=== PATIENT | female | born 1945 | race Caucasian/White ===

== ENCOUNTER → 2019-02-11 15:00 | Outpatient (CLI) | payer MEDICARE, OTHER, SELFPAY ==
[2019-02-11 15:43] LABS: Add Manual Diff / Slide Review NO; Basophils Absolute Auto 100 /uL (0-100); Basophils Percent Auto 0.8 % (0-2); Eosinophils Absolute Auto 800 /uL (0-450); Eosinophils Percent Auto 9.5 % (2-4); Hematocrit 40.8 % (36-46); Hemoglobin 13.9 g/dL (12.0-16.0); Lymphocytes Absolute Auto 1900 /uL (1100-4500); Lymphocytes Percent Auto 22.2 % (25-40); Mean Corpuscular HGB Conc 33.9 % (30-36); Mean Corpuscular Volume 91.3 fL (80-100); Monocytes Absolute Auto 600 /uL (0-900); Neutrophils Absolute Auto 5300 /uL (1500-7000); Neutrophils Percent Auto 60.5 % (50-75); Platelet Count 378 X10^3/uL (150-400); Red Blood Cell Count 4.47 X10^6/uL (4.0-5.2); Red Cell Distribution Width 13.5 % (11.6-14.8); White Blood Cell Count 8.7 X10^3/uL (4.5-11.0)
[2019-02-11 16:07] LABS: Alanine Aminotransferase 66 IU/L (9-52); Albumin 4.1 g/dL (3.5-5.0); Alkaline Phosphatase 92 U/L (38-126); Aspartate Aminotransferase 99 IU/L (14-36); Bilirubin Total 0.4 mg/dL (0.2-1.3); Blood Urea Nitrogen 17 mg/dL (7-17); Calcium 10.1 mg/dL (8.4-10.2); Carbon Dioxide 29 mmol/L (22-32); Chloride 100 mmol/L (98-107); Estimated Glomerular Filt Rate > 60.0 mL/min (>60); Globulin 4.3 g/dL (1.7-4.1); Glucose 147 mg/dL (80-110); HEMOLYSIS < 15 (0-50); Potassium 3.6 mmol/L (3.4-5.1); Sodium 138 mmol/L (137-145); Total Protein 8.4 g/dL (6.3-8.2)
[2019-02-11 16:38] LABS: TSH w/ Reflex to FT4 4.07 uIU/mL (0.47-4.68)
[2019-02-16 12:32] LABS: Hemoglobin A1C% w Est Avg Glu 6.8 % (4.0-6.0)
== END ==
PROVIDERS: PCP Family Medicine; Visit Provider Family Medicine
DX: I10 Essential (primary) hypertension (principal); R73.01 Impaired fasting glucose
CPT/HCPCS: 36415; 80053; 83036; 84443; 85025

== ENCOUNTER → 2019-08-26 11:31 | Outpatient (CLI) | payer MEDICARE, OTHER, SELFPAY | PROVIDERS: PCP Family Medicine; Referring Provider Family Medicine; Visit Provider Family Medicine | DX: E11.9 Type 2 diabetes mellitus without complications (principal) | CPT/HCPCS: 36415; 83036 ==

== ENCOUNTER → 2020-11-01 14:17 | Outpatient (CLI) | payer MEDICARE, OTHER, SELFPAY ==
[2020-11-01 14:47] LABS: Appearance Urine UA CLOUDY; Bilirubin Urine UA NEGATIVE (NEGATIVE); Color Urine UA YELLOW; Glucose Urine UA NEGATIVE (Negative); Ketones Urine UA NEGATIVE (NEGATIVE); Leukocyte Esterase Urine UA 3+ (NEGATIVE); Nitrite Urine UA NEGATIVE (Negative); Occult Blood Urine UA 3+ (Negative); Protein Urine UA 1+ (Negative); Specific Gravity Urine UA 1.015 (1.000-1.035); Urobilinogen Urine UA 0.2 E.U./dL (0.2)
[2020-11-01 15:23] LABS: Bacteria Urine Moderate (10-30); Culture Indicated Urine Specimen Cultured; RBC Urine 5-10/HPF (0-5/HPF); Renal Epithelial Cells Urine 0-1/HPF (0-1/HPF); Squamous Epithelial Cell Urine 1-5 /HPF (0-5/HPF); Transitional Epi Cells Urine 1-5/HPF (0-5/HPF); WBC Urine 30-100/HPF (0-5/HPF)
== END ==
PROVIDERS: PCP Family Medicine; Referring Provider Family Medicine; Visit Provider Family Medicine
DX: R30.0 Dysuria (principal)
CPT/HCPCS: 81001; 87077; 87086; 87186

== ENCOUNTER → 2021-01-21 08:45 | Outpatient (CLI) | payer MEDICARE, OTHER, SELFPAY ==
[2021-01-21 09:50] LABS: Add Manual Diff / Slide Review NO; Basophils Absolute Auto 100 /uL (0-100); Basophils Percent Auto 1.3 % (0-2); Eosinophils Absolute Auto 1100 /uL (0-450); Eosinophils Percent Auto 12.7 % (2-4); Hematocrit 42.4 % (36-46); Hemoglobin 14.5 g/dL (12.0-16.0); Lymphocytes Absolute Auto 1700 /uL (1100-4500); Lymphocytes Percent Auto 20.9 % (25-40); Mean Corpuscular HGB Conc 34.2 % (30-36); Mean Corpuscular Volume 90.7 fL (80-100); Monocytes Absolute Auto 600 /uL (0-900); Monocytes Percent Auto 7.6 % (3-14); Neutrophils Absolute Auto 4800 /uL (1500-7000); Neutrophils Percent Auto 57.5 % (50-75); Platelet Count 353 X10^3/uL (150-400); Red Blood Cell Count 4.67 X10^6/uL (4.0-5.2); Red Cell Distribution Width 13.2 % (11.6-14.8); White Blood Cell Count 8.3 X10^3/uL (4.5-11.0)
[2021-01-21 10:11] LABS: Alanine Aminotransferase 27 IU/L (<35); Albumin 4.3 g/dL (3.5-5.0); Albumin Globulin Ratio 1.2 (1.0-2.8); Alkaline Phosphatase 82 U/L (38-126); Aspartate Aminotransferase 29 IU/L (14-36); BUN Creatinine Ratio 37.2 (6-22); Bilirubin Total 0.5 mg/dL (0.2-1.3); Blood Urea Nitrogen 16 mg/dL (7-17); Calcium 10.6 mg/dL (8.4-10.2); Carbon Dioxide 25 mmol/L (22-32); Chloride 104 mmol/L (98-107); Cholesterol 199 mg/dL (140-199); Estimated Glomerular Filt Rate > 60.0 mL/min (>60); Globulin 3.6 g/dL (1.7-4.1); Glucose 109 mg/dL (80-110); HDL Cholesterol 60 mg/dL (40-60); HEMOLYSIS < 15 (0-50); LDL Cholesterol Calculated 100 mg/dL (<100); Potassium 3.6 mmol/L (3.4-5.1); Sodium 139 mmol/L (137-145); Total Protein 7.9 g/dL (6.3-8.2); Triglycerides 193 mg/dL (35-150)
[2021-01-21 10:43] LABS: TSH w/ Reflex to FT4 1.94 uIU/mL (0.47-4.68)
== END ==
PROVIDERS: PCP Family Medicine; Referring Provider Family Medicine; Visit Provider Family Medicine
DX: E03.9 Hypothyroidism, unspecified (principal); E11.9 Type 2 diabetes mellitus without complications; E66.01 Morbid (severe) obesity due to excess calories; I10 Essential (primary) hypertension
CPT/HCPCS: 36415; 80053; 80061; 84443; 85025

== ENCOUNTER → 2021-01-22 13:56 | Outpatient (CLI) | payer MEDICARE, OTHER, SELFPAY ==
[2021-01-22 15:46] LABS: Creatinine Urine Random 103.9 mg/dL
[2021-01-22 16:52] LABS: Microalbumi Creatinin Ratio Ur 3147.2 ug/mg CR (<30)
[2021-01-23 13:46] LABS: Appearance Urine UA CLOUDY; Bilirubin Urine UA NEGATIVE (NEGATIVE); Color Urine UA YELLOW; Glucose Urine UA NEGATIVE (Negative); Ketones Urine UA NEGATIVE (NEGATIVE); Leukocyte Esterase Urine UA 2+ (NEGATIVE); Nitrite Urine UA POSITIVE (Negative); Occult Blood Urine UA 3+ (Negative); Protein Urine UA 2+ (Negative); Specific Gravity Urine UA 1.025 (1.000-1.035); Urobilinogen Urine UA 0.2 E.U./dL (0.2)
[2021-01-23 13:52] LABS: Amorphous Sediment Urine 1+; Bacteria Urine Moderate (10-30); Culture Indicated Urine Specimen Cultured; Mucus Urine 1+ (Negative); RBC Urine 1-5/HPF (0-5/HPF); Renal Epithelial Cells Urine 0-1/HPF (0-1/HPF); Squamous Epithelial Cell Urine 1-5 /HPF (0-5/HPF); WBC Urine >100/HPF (0-5/HPF)
== END ==
PROVIDERS: PCP Family Medicine; Referring Provider Family Medicine; Visit Provider Family Medicine
DX: E03.9 Hypothyroidism, unspecified (principal); E11.9 Type 2 diabetes mellitus without complications; E66.01 Morbid (severe) obesity due to excess calories; I10 Essential (primary) hypertension; N39.0 Urinary tract infection, site not specified
CPT/HCPCS: 81001; 82043; 82570; 87077; 87086; 87186

== ENCOUNTER → 2021-02-11 09:11 | Outpatient (CLI) | payer MEDICARE, OTHER, SELFPAY ==
[2021-02-11 09:55] LABS: Appearance Urine UA CLOUDY; Bilirubin Urine UA NEGATIVE (NEGATIVE); Color Urine UA YELLOW; Glucose Urine UA NEGATIVE (Negative); Ketones Urine UA NEGATIVE (NEGATIVE); Leukocyte Esterase Urine UA 3+ (NEGATIVE); Nitrite Urine UA POSITIVE (Negative); Occult Blood Urine UA 3+ (Negative); Protein Urine UA 2+ (Negative); Urobilinogen Urine UA 0.2 E.U./dL (0.2)
[2021-02-11 10:48] LABS: Bacteria Urine Many (>30); Culture Indicated Urine Specimen Cultured; RBC Urine 30-100/HPF (0-5/HPF); WBC Urine >100/HPF (0-5/HPF)
== END ==
PROVIDERS: PCP Family Medicine; Referring Provider Family Medicine; Visit Provider Family Medicine
DX: R30.0 Dysuria (principal); N39.0 Urinary tract infection, site not specified
CPT/HCPCS: 81001; 87077; 87086; 87186

== ENCOUNTER → 2021-02-19 12:50 | Outpatient (CLI) | payer MEDICARE, OTHER, SELFPAY | PROVIDERS: PCP Family Medicine; Referring Provider Family Medicine; Visit Provider Family Medicine | DX: N39.0 Urinary tract infection, site not specified (principal) | CPT/HCPCS: 87086 ==

== ENCOUNTER → 2021-07-02 11:58 | Outpatient (CLI) | payer MEDICARE, OTHER, SELFPAY ==
[2021-07-02 12:42] LABS: Appearance Urine UA CLOUDY; Bilirubin Urine UA NEGATIVE (NEGATIVE); Color Urine UA YELLOW; Glucose Urine UA NEGATIVE (Negative); Ketones Urine UA NEGATIVE (NEGATIVE); Leukocyte Esterase Urine UA 3+ (NEGATIVE); Nitrite Urine UA POSITIVE (Negative); Occult Blood Urine UA 3+ (Negative); Protein Urine UA 2+ (Negative); Urobilinogen Urine UA 0.2 E.U./dL (0.2)
[2021-07-02 13:02] LABS: Bacteria Urine Moderate (10-30); Culture Indicated Urine Specimen Cultured; RBC Urine 10-30/HPF (0-5/HPF); Squamous Epithelial Cell Urine 1-5 /HPF (0-5/HPF); Transitional Epi Cells Urine 1-5/HPF (0-5/HPF); WBC Urine >100/HPF (0-5/HPF)
== END ==
PROVIDERS: PCP Family Medicine; Referring Provider Family Medicine; Visit Provider Family Medicine
DX: R30.0 Dysuria (principal)
CPT/HCPCS: 81003; 81015; 87077; 87086; 87186

== ENCOUNTER → 2021-08-28 15:08 | Outpatient (CLI) | payer MEDICARE, OTHER, SELFPAY ==
[2021-08-28 15:32] LABS: Appearance Urine UA CLOUDY; Bilirubin Urine UA NEGATIVE (NEGATIVE); Color Urine UA YELLOW; Glucose Urine UA NEGATIVE (Negative); Ketones Urine UA NEGATIVE (NEGATIVE); Leukocyte Esterase Urine UA 2+ (NEGATIVE); Nitrite Urine UA POSITIVE (Negative); Occult Blood Urine UA 3+ (Negative); Protein Urine UA 2+ (Negative); Urobilinogen Urine UA 0.2 E.U./dL (0.2)
[2021-08-28 15:42] LABS: Amorphous Sediment Urine 1+; Bacteria Urine Many (>30); Culture Indicated Urine Specimen Cultured; RBC Urine 10-30/HPF (0-5/HPF); WBC Urine 5-10/HPF (0-5/HPF)
== END ==
PROVIDERS: PCP Family Medicine; Referring Provider Family Medicine; Visit Provider Family Medicine
DX: R30.0 Dysuria (principal)
CPT/HCPCS: 81001; 87077; 87086; 87186

== ENCOUNTER 2022-02-17 09:55 | Inpatient (IN) | payer MEDICARE, OTHER, SELFPAY ==
[2022-02-17] VITALS (17 sets, daily range): BP systolic 114–140; BP diastolic 58–78; PULSE 72–126; RESP 20–22; TEMP 36.5–38.9; O2SAT 93–99; BMI 40.9
--- NOTE | 2022-02-17 10:16 | DI.RAD.S_ITS ---
PROCEDURE: XR CHEST 1V INDICATIONS: suspected sepsis TECHNIQUE: One view of the chest was acquired. COMPARISON: [facility], , CHEST 2 VIEW, 08/02/2013, 15:48. FINDINGS: Surgical changes and devices: Surgical clips seen projecting over the left breast.. Lungs and pleura: Mildly low lung volumes bilaterally. No focal consolidation. A skin fold is seen projecting over the lower lung zelaya. No pleural effusions or pneumothorax. Mediastinum: Mediastinal contours appear normal. Heart size is normal. Bones and chest wall: No suspicious bony lesions. Overlying soft tissues appear unremarkable. Degenerative changes are seen in the shoulders and spine. IMPRESSION: No acute cardiopulmonary abnormality. Dictated by: Yair Alvarez M.D. on 02/17/2022 at 10:03 Approved by: Yair Alvarez M.D. on 02/17/2022 at 10:05
--- NOTE | 2022-02-17 10:22 | ED.ABDPAIN ---
HPI - Abdominal Pain General Chief Complaint: Weakness Stated Complaint: Weakness Time Seen by Provider: 02/17/22 10:07 History of Present Illness HPI narrative: This 76-year-old woman comes to the ER today by ambulance because of inability to keep herself upright. She is fallen a number of times without injury over the past 24 hours. This was the 3rd EMS visit to her home this morning and she finally acquiesced to the idea to come to the hospital. She has diabetes, obesity, history of back surgery and urinary problems. Recurrent UTIs. She denies nausea, vomiting, fever though she does endorse chills. She also says she feels constipated. No abdominal pain or flank pain. Related Data Home Medications Medication Instructions Recorded Confirmed CA PANTOTHENATE/FOLIC ACID/VIT 1 tab PO Q DAY ##0 06/24/11 03/28/21 (MULTIVITAMIN) CALCIUM CARBONATE/VITAMIN D3 1 tab PO Q DAY ##0 06/24/11 03/28/21 (Calcium 500 + D Tablet) Fish Oil (#FISH OIL) 1 iu PO Q DAY ##0 06/24/11 03/28/21 omeprazole 40 mg capsule,delayed 40 mg OR BID ##0 07/07/16 03/28/21 release sucralfate 1 gram tablet 1 gm PO QID ##0 07/07/16 03/28/21 Previous Rx's Medication Instructions Recorded fluticasone propionate 220 2 puff INH BID ##12 01/25/18 mcg/actuation HFA aerosol inhaler (Flovent HFA) amlodipine 10 mg tablet 10 mg PO QDAY #90 tabs 04/05/21 losartan 50 mg tablet See Rx Instructions .Route 05/14/21 .COMPLEX #90 tabs potassium chloride 10 mEq 20 meq PO BIDCC #360 tabs 06/03/21 tablet,extended release(part/cryst) lorazepam 1 mg tablet 0.5 mg PO BEDTIME PRN anxiety #30 07/22/21 tabs chlorthalidone 50 mg tablet See Rx Instructions .Route 07/25/21 .COMPLEX #90 tabs citalopram 20 mg tablet See Rx Instructions .Route 07/25/21 .COMPLEX #90 tabs metformin 500 mg tablet See Rx Instructions .Route 08/16/21 .COMPLEX #180 tabs levothyroxine 100 mcg tablet 100 mcg PO QAM #30 tabs 01/24/22 (Synthroid) montelukast 10 mg tablet See Rx Instructions .Route 02/03/22 .COMPLEX #90 tabs Allergies Allergy/AdvReac Type Severity Reaction Status Date / Time milk [MILK] Allergy Severe INCREASE Verified 02/17/22 10:28 PHLEM PRODUCTION/DYSPHAGIA nafcillin [NAFCILLIN] Allergy Severe ITCHY Verified 02/17/22 10:28 RASH/HIVES clindamycin [CLINDAMYCIN] Allergy Mild BLOODY Verified 02/17/22 10:28 STOOL doxycycline [DOXYCYCLINE] Allergy Mild BLOODY Verified 02/17/22 10:28 STOOL hydrocodone [HYDROCODONE] Allergy Mild PATIENT Verified 02/17/22 10:28 REPORTS MAKES ME CRAZY trazodone [TRAZODONE] Allergy Mild TACHYCARDIA Verified 02/17/22 10:28 valdecoxib [VALDECOXIB] Allergy Mild TACHYCARDIA Verified 02/17/22 10:28 Review of Systems Review of Systems Narrative: Complete review of systems is negative other than as noted above. Patient History Medical History (Updated 02/17/22 @ 13:12 by Gwyn Ballard MD) Anxiety Asthma Controlled type 2 diabetes mellitus without complication Hypertension Hypothyroidism Neurogenic bladder Osteomyelitis Surgical History (Updated 02/08/18 @ 22:31 by Mel Hodge) Anesthesia Breast cancer Encounter for debridement of skin (~2012) History of back surgery History of hip surgery Status post appendectomy Status post cholecystectomy Status post hysterectomy Family History (Updated 06/23/13 @ 00:00 by Mumtaz Groves MD) Father Hypertension Mother Hypertension OA (osteoarthritis) Social History marital status: Smoking Status: Never smoker alcohol intake: never substance use type: does not use Smoking Status: Never smoker Exam Narrative Exam Narrative: GENERAL: Alert, cooperative and in no distress. HEAD: Atraumatic. Normocephalic. EYES: Sclera are clear without icterus. Extraocular movements are full. ENT: No rhinorrhea. Oropharynx is moist. Mouth exam is benign. NECK: Supple. Full range of motion. CARDIOVASCULAR: Normal rate and rhythm without murmur gallop or rub. RESPIRATORY: Clear to auscultation. Breath sounds equal bilaterally. No wheezes, rales, or rhonchi. GASTROINTESTINAL: Abdomen soft, non-tender, nondistended. EXTREMITIES: No edema, full range of motion. No obvious trauma. BACK: Normal inspection, no CVA tenderness. NEURO: Nonfocal examination, normal speech, normal gait. SKIN: No rash or erythema of visible areas PSYCH: Normally oriented. Normal range of affect. Appropriate behavior Initial Vital Signs Initial Vital Signs: Vital Signs Temperature 97.7 F 02/17/22 09:55 Pulse Rate 114 H 02/17/22 09:55 Respiratory Rate 20 02/17/22 09:55 Blood Pressure 122/77 02/17/22 09:55 Pulse Oximetry 94 02/17/22 09:55 Oxygen Delivery Method 02/17/22 09:55 Course Course Course Narrative: This patient appears septic with resting tachycardia. She also has been falling multiple times at home. Catheterized urine is essentially straight pus. Expect hospitalization with IV antibiotics. Orders Ordered: ED Orders 02/17/22 10:16 XR chest 1V Stat Urinalysis and Microscopic Stat Urine Culture Stat RT Consult Eval and Treat NOW 02/17/22 10:18 COVID19 -Nasal RAPID/Pre-Proc Stat Complete Blood Count AUTO DIFF Stat Comprehensive Metabolic Panel Stat Lactate (Lactic Acid) Stat Lipase Stat Partial Thromboplastin Time Stat Procalcitonin Stat Prothrombin Time INR Stat 02/17/22 10:30 EKG-12 Lead Stat 02/17/22 10:40 Troponin I Stat 02/17/22 10:56 Blood Culture Stat Sodium Chloride (Normal Saline 0.9%) 3,600 mls @ 1,200 mls/hr 30 ml/kg infuse over 3 hr (3600 ml) IV NOW ONE Stop: 02/17/22 13:23 Last Admin: 02/17/22 10:48 Dose: 1,200 mls/hr Documented By: FRANCIS Discontinued Medications Diltiazem HCl (Diltiazem 5 Mg/Ml Sdv) 10 mg IV NOW ONE Stop: 02/17/22 10:39 Last Admin: 02/17/22 10:49 Dose: 10 mg Documented By: FRANCIS Sodium Chloride (Normal Saline 0.9%) 1,000 mls @ 1,000 mls/hr IV BOLUS ONE Stop: 02/17/22 11:15 Ceftriaxone Sodium 2,000 mg/ (Sodium Chloride) 100 mls @ 200 mls/hr IV NOW ONE Stop: 02/17/22 10:25 Last Infusion: 02/17/22 11:44 Dose: 0 mls/hr Documented By: Infusion: 02/17/22 11:02 Dose: 200 mls/hr Documented By: Infusion: 02/17/22 10:50 Dose: 0 mls/hr Documented By: Admin: 02/17/22 10:48 Dose: 200 mls/hr Documented By: FRANCIS Ketorolac Tromethamine (Ketorolac 30 Mg/Ml Vial) 15 mg IV NOW ONE Stop: 02/17/22 13:01 Last Admin: 02/17/22 13:11 Dose: 15 mg Consultations Consultation #1: Spoke with Dr. Anthony Gil who agrees to admit the patient. 1317 Vital Signs Vital signs: Vital Signs - 8 hr 02/17/22 09:55 02/17/22 10:49 02/17/22 10:20 Temperature 97.7 F Pulse Rate 114 H 126 H Respiratory Rate 20 Blood Pressure 122/77 126/72 122/77 Pulse Oximetry 94 Oxygen Delivery Method Room Air 02/17/22 10:20 02/17/22 10:30 02/17/22 10:48 Temperature Pulse Rate 72 126 H Respiratory Rate Blood Pressure 126/72 Pulse Oximetry 94 94 Oxygen Delivery Method 02/17/22 10:48 02/17/22 11:00 02/17/22 11:01 Temperature Pulse Rate 122 H 116 H Respiratory Rate Blood Pressure 140/77 Pulse Oximetry 97 97 Oxygen Delivery Method 02/17/22 11:01 02/17/22 11:30 02/17/22 11:30 Temperature Pulse Rate 112 H 107 H Respiratory Rate Blood Pressure 133/74 Pulse Oximetry 99 96 Oxygen Delivery Method Room Air 02/17/22 12:00 02/17/22 12:00 02/17/22 12:30 Temperature Pulse Rate 107 H Respiratory Rate Blood Pressure 130/64 128/63 Pulse Oximetry 97 Oxygen Delivery Method 02/17/22 12:30 Temperature Pulse Rate 117 H Respiratory Rate Blood Pressure Pulse Oximetry 97 Oxygen Delivery Method MDM - Abdominal Pain Lab Data Result diagrams: 02/17/22 10:18 02/17/22 10:18 Labs: Lab Results 02/17/22 02/17/22 02/17/22 Range/Units 10:16 10:18 10:18 WBC 25.9 H (4.5-11.0) X10^3/uL RBC 4.13 (4.0-5.2) X10^6/uL Hgb 12.3 (12.0-16.0) g/dL Hct 36.3 (36-46) % MCV 88.1 (80-100) fL MCH 29.9 (26-34) PG MCHC 34.0 (30-36) % RDW 13.3 (11.6-14.8) % Plt Count 578 H (150-400) X10^3/uL Neut % (Auto) Not Reportable Lymph % (Auto) Not Reportable [place] % (Auto) Not Reportable Eos % (Auto) Not Reportable Baso % (Auto) Not Reportable Lymph # (Auto) Not Reportable [place] # (Auto) Not Reportable Baso # (Auto) Not Reportable Total Counted 100 Seg Neutrophils % 79.0 H (38-70) % Band Neutrophils % 13.0 H (3-7) % Lymphocytes % (Manual) 5.0 L (25-45) % Monocytes % (Manual) 3.0 (2-11) % Neutrophils # (Manual) 63870 H (1435-2939) /uL RBC Morphology Normal morphology PT 16.4 H (10.1-12.7) SECONDS INR 1.4 H (0.9-1.3) APTT 28 (26-36) SECONDS Sodium (137-145) mmol/L Potassium (3.4-5.1) mmol/L Chloride (98-107) mmol/L Carbon Dioxide (22-32) mmol/L BUN (7-17) mg/dL Creatinine (0.52-1.04) mg/dL Estimated GFR (>60) mL/min BUN/Creatinine Ratio (6-22) Glucose (80-110) mg/dL Lactate (0.7-2.1) mmol/L Calcium (8.4-10.2) mg/dL Total Bilirubin (0.2-1.3) mg/dL AST (14-36) IU/L ALT (<35) IU/L Alkaline Phosphatase (38-126) U/L Troponin I (0.01-0.034) ng/mL Total Protein (6.3-8.2) g/dL Albumin (3.5-5.0) g/dL Globulin (1.7-4.1) g/dL Albumin/Globulin Ratio (1.0-2.8) Lipase (23-300) U/L Procalcitonin (<0.5) ng/mL Urine Color Yellow Urine Appearance Turbid Urine pH 8.5 H (4.5-8.0) Ur Specific [place] >=1.030 H (1.000-1.035) Urine Protein 3+ H (Negative) Urine Glucose (UA) Negative (Negative) g/dL Urine Ketones Negative (NEGATIVE) Urine Occult Blood 3+ H (Negative) Urine Nitrate Negative (Negative) Urine Bilirubin Negative (NEGATIVE) Urine Urobilinogen 0.2 (0.2) E.U./dL Ur Leukocyte Esterase 2+ H (NEGATIVE) Urine RBC 30-100/hpf H (0-5/HPF) Urine WBC >100/hpf H (0-5/HPF) Urine Bacteria Many (>30) H (None) Ur Culture Indicated? Specimen cultured SARS-CoV-2 (PCR) (Negative) 02/17/22 02/17/22 02/17/22 Range/Units 10:18 10:18 10:18 WBC (4.5-11.0) X10^3/uL RBC (4.0-5.2) X10^6/uL Hgb (12.0-16.0) g/dL Hct (36-46) % MCV (80-100) fL MCH (26-34) PG MCHC (30-36) % RDW (11.6-14.8) % Plt Count (150-400) X10^3/uL Neut % (Auto) Lymph % (Auto) [place] % (Auto) Eos % (Auto) Baso % (Auto) Lymph # (Auto) [place] # (Auto) Baso # (Auto) Total Counted Seg Neutrophils % (38-70) % Band Neutrophils % (3-7) % Lymphocytes % (Manual) (25-45) % Monocytes % (Manual) (2-11) % Neutrophils # (Manual) (3442-3282) /uL RBC Morphology PT (10.1-12.7) SECONDS INR (0.9-1.3) APTT (26-36) SECONDS Sodium 134 L (137-145) mmol/L Potassium 3.2 L (3.4-5.1) mmol/L Chloride 98 (98-107) mmol/L Carbon Dioxide 25 (22-32) mmol/L BUN 37 H (7-17) mg/dL Creatinine 1.15 H (0.52-1.04) mg/dL Estimated GFR 50 L (>60) mL/min BUN/Creatinine Ratio 32.2 H (6-22) Glucose 120 H (80-110) mg/dL Lactate 2.2 H (0.7-2.1) mmol/L Calcium 10.1 (8.4-10.2) mg/dL Total Bilirubin 0.9 (0.2-1.3) mg/dL AST 56 H (14-36) IU/L ALT 59 H (<35) IU/L Alkaline Phosphatase 130 H (38-126) U/L Troponin I (0.01-0.034) ng/mL Total Protein 8.5 H (6.3-8.2) g/dL Albumin 3.5 (3.5-5.0) g/dL Globulin 5.0 H (1.7-4.1) g/dL Albumin/Globulin Ratio 0.7 L (1.0-2.8) Lipase 45 (23-300) U/L Procalcitonin 3.17 H (<0.5) ng/mL Urine Color Urine Appearance Urine pH (4.5-8.0) Ur Specific [place] (1.000-1.035) Urine Protein (Negative) Urine Glucose (UA) (Negative) g/dL Urine Ketones (NEGATIVE) Urine Occult Blood (Negative) Urine Nitrate (Negative) Urine Bilirubin (NEGATIVE) Urine Urobilinogen (0.2) E.U./dL Ur Leukocyte Esterase (NEGATIVE) Urine RBC (0-5/HPF) Urine WBC (0-5/HPF) Urine Bacteria (None) Ur Culture Indicated? SARS-CoV-2 (PCR) Negative (Negative) 02/17/22 02/17/22 Range/Units 10:40 12:40 WBC (4.5-11.0) X10^3/uL RBC (4.0-5.2) X10^6/uL Hgb (12.0-16.0) g/dL Hct (36-46) % MCV (80-100) fL MCH (26-34) PG MCHC (30-36) % RDW (11.6-14.8) % Plt Count (150-400) X10^3/uL Neut % (Auto) Lymph % (Auto) [place] % (Auto) Eos % (Auto) Baso % (Auto) Lymph # (Auto) [place] # (Auto) Baso # (Auto) Total Counted Seg Neutrophils % (38-70) % Band Neutrophils % (3-7) % Lymphocytes % (Manual) (25-45) % Monocytes % (Manual) (2-11) % Neutrophils # (Manual) (3969-1248) /uL RBC Morphology PT (10.1-12.7) SECONDS INR (0.9-1.3) APTT (26-36) SECONDS Sodium (137-145) mmol/L Potassium (3.4-5.1) mmol/L Chloride (98-107) mmol/L Carbon Dioxide (22-32) mmol/L BUN (7-17) mg/dL Creatinine (0.52-1.04) mg/dL Estimated GFR (>60) mL/min BUN/Creatinine Ratio (6-22) Glucose (80-110) mg/dL Lactate 1.9 (0.7-2.1) mmol/L Calcium (8.4-10.2) mg/dL Total Bilirubin (0.2-1.3) mg/dL AST (14-36) IU/L ALT (<35) IU/L Alkaline Phosphatase (38-126) U/L Troponin I 0.016 (0.01-0.034) ng/mL Total Protein (6.3-8.2) g/dL Albumin (3.5-5.0) g/dL Globulin (1.7-4.1) g/dL Albumin/Globulin Ratio (1.0-2.8) Lipase (23-300) U/L Procalcitonin (<0.5) ng/mL Urine Color Urine Appearance Urine pH (4.5-8.0) Ur Specific [place] (1.000-1.035) Urine Protein (Negative) Urine Glucose (UA) (Negative) g/dL Urine Ketones (NEGATIVE) Urine Occult Blood (Negative) Urine Nitrate (Negative) Urine Bilirubin (NEGATIVE) Urine Urobilinogen (0.2) E.U./dL Ur Leukocyte Esterase (NEGATIVE) Urine RBC (0-5/HPF) Urine WBC (0-5/HPF) Urine Bacteria (None) Ur Culture Indicated? SARS-CoV-2 (PCR) (Negative) ECG Data Interpretation: EKG obtained at 10:30 a.m. this morning reveals atrial fibrillation at a rate of 128 beats per minute. There is no acute T-wave changes or ST segment changes nonspecific changes are suspicious for ischemia. QTC is 490. MDM Narrative Medical decision making narrative: Sepsis with urinary tract source. I cultures drawn, fluids given, repeat lactic is improved. Will admit to hospitalist service as an inpatient. Discharge Plan Departure Patient Disposition: Admitted As Inpatient Clinical Impression: Sepsis, Urinary tract infection
[2022-02-17 10:37] LABS: Hematocrit 36.3 % (36-46); Hemoglobin 12.3 g/dL (12.0-16.0); Mean Corpuscular Hemoglobin 29.9 PG (26-34); Mean Corpuscular Volume 88.1 fL (80-100); Platelet Count 578 X10^3/uL (150-400); Red Blood Cell Count 4.13 X10^6/uL (4.0-5.2); Red Cell Distribution Width 13.3 % (11.6-14.8); White Blood Cell Count 25.9 X10^3/uL (4.5-11.0)
[2022-02-17 10:38] LABS: Add Manual Diff / Slide Review YES
[2022-02-17] MEDS: cefTRIAXone 2,000 MG in SODIUM CHLORIDE 0.9% 100 ML 200 MG IV (10:48)
[2022-02-17] MEDS: SODIUM CHLORIDE 0.9% 3,600 ML 1200 ML IV (10:48)
[2022-02-17] MEDS: dilTIAZem 5 MG/ML SDV 10 MG IV (10:49)
[2022-02-17 10:56] LABS: INR 1.4 (0.9-1.3); Prothrombin Time 16.4 SECONDS (10.1-12.7)
[2022-02-17 10:59] LABS: PTT Partial Thromboplastin Tim 28 SECONDS (26-36)
[2022-02-17 11:01] LABS: COVID19 -Nasal RAPID Negative (Negative)
[2022-02-17 11:04] LABS: Appearance Urine UA TURBID; Bacteria Urine Many (>30); Bilirubin Urine UA NEGATIVE (NEGATIVE); Color Urine UA YELLOW; Culture Indicated Urine Specimen Cultured; Glucose Urine UA NEGATIVE (Negative); Ketones Urine UA NEGATIVE (NEGATIVE); Leukocyte Esterase Urine UA 2+ (NEGATIVE); Nitrite Urine UA NEGATIVE (Negative); Occult Blood Urine UA 3+ (Negative); Protein Urine UA 3+ (Negative); RBC Urine 30-100/HPF (0-5/HPF); Specific Gravity Urine UA >=1.030 (1.000-1.035); Urobilinogen Urine UA 0.2 E.U./dL (0.2); WBC Urine >100/HPF (0-5/HPF); pH Urine UA 8.5 (4.5-8.0)
[2022-02-17 11:09] LABS: Alanine Aminotransferase 59 IU/L (<35); Albumin 3.5 g/dL (3.5-5.0); Albumin Globulin Ratio 0.7 (1.0-2.8); Alkaline Phosphatase 130 U/L (38-126); Aspartate Aminotransferase 56 IU/L (14-36); BUN Creatinine Ratio 32.2 (6-22); Bilirubin Total 0.9 mg/dL (0.2-1.3); Blood Urea Nitrogen 37 mg/dL (7-17); Calcium 10.1 mg/dL (8.4-10.2); Carbon Dioxide 25 mmol/L (22-32); Chloride 98 mmol/L (98-107); Estimated Glomerular Filt Rate 50 mL/min (>60); Glucose 120 mg/dL (80-110); Lipase 45 U/L (23-300); Potassium 3.2 mmol/L (3.4-5.1); Sodium 134 mmol/L (137-145); Total Protein 8.5 g/dL (6.3-8.2)
[2022-02-17 11:10] LABS: HEMOLYSIS 54 (0-50)
[2022-02-17 11:11] LABS: Lactate (Lactic Acid) 2.2 mmol/L (0.7-2.1)
[2022-02-17 11:19] LABS: Troponin I 0.016 ng/mL (0.01-0.034)
[2022-02-17 11:23] LABS: Neutrophils Absolute Manual 23828 /uL (3000-5900); RBC Morphology Normal Morphology; Total Cells Counted 100
[2022-02-17 11:24] LABS: Procalcitonin 3.17 ng/mL (<0.5)
[2022-02-17 12:26] LABS: Reflexed Lactate in 2 Hours Y
[2022-02-17 13:07] LABS: Lactate 2HR (Lactic Acid Rflx) 1.9 mmol/L (0.7-2.1)
[2022-02-17] MEDS: KETOROLAC 30 MG/ML VIAL 15 MG IV (13:11)
--- NOTE | 2022-02-17 14:18 | P.HP_ITS ---
History of Present Illness History of Present Illness Date Patient Seen: 02/17/22 Time Patient Seen: 14:19 Chief complaint: Weakness Narrative: 76 year old female, normally sees Dr. Groves, admitted for UTI with sepsis and new onset atrial fibrillation Patient reports multiple falls over the course of more than a day. She denies any serious injury but is unable to really to keep her balance or stay upright.. She had called EMS on 2 other occasions and third time was brought to the emergency department Patient with history of frequent UTIs and some urinary retention (after back injury/surgery years ago) requiring intermittent self catheterization In the ER she was found to a marked leukocytosis, frankly positive urinalysis with urine looking grossly more like pus than anything else, and new onset atrial fibrillation with borderline rapid ventricular response. She was also minimally hypokalemic with evidence of acute kidney injury with a bump in her creatinine and BUN. She was also noted to have a minimally elevated lactate which improved after fluid volume resuscitation. She also had abnormal LFTs which is not new for her necessarily Troponin was negative. She was given a dose of IV ceftriaxone and IV diltiazem in the ER. Patient History Medical History Anxiety Asthma Breast cancer Controlled type 2 diabetes mellitus without complication Hypertension Hypothyroidism Neurogenic bladder Osteomyelitis Varicose vein of leg Surgical History Anesthesia Breast cancer Encounter for debridement of skin (~2012) History of back surgery History of hip surgery Status post appendectomy Status post cholecystectomy Status post hysterectomy Family & Social History Family History Father Hypertension Mother Hypertension OA (osteoarthritis) Safety & Behavioral: Feels Safe in Current Yes Environment Been Physically Hurt or No Threatened By a Person Tobacco & Substance use: Smoking Status Never smoker alcohol intake never Meds Home Medications and Allergies Home Medications Medication Instructions Recorded Confirmed Type CALCIUM CARBONATE/VITAMIN D3 1 tab PO Q DAY ##0 06/24/11 02/17/22 History (Calcium 500 + D Tablet) Fish Oil (#FISH OIL) 1 iu PO Q DAY ##0 06/24/11 02/17/22 History omeprazole 40 mg capsule,delayed 40 mg OR BID ##0 07/07/16 02/17/22 History release amlodipine 10 mg tablet 10 mg PO QDAY #90 tabs 04/05/21 02/17/22 Rx losartan 50 mg tablet See Rx Instructions .Route 05/14/21 02/17/22 Rx .COMPLEX #90 tabs potassium chloride 10 mEq 20 meq PO BIDCC #360 tabs 06/03/21 02/17/22 Rx tablet,extended release(part/cryst) lorazepam 1 mg tablet 0.5 mg PO BEDTIME PRN anxiety #30 07/22/21 02/17/22 Rx tabs chlorthalidone 50 mg tablet See Rx Instructions .Route 07/25/21 02/17/22 Rx .COMPLEX #90 tabs citalopram 20 mg tablet See Rx Instructions .Route 07/25/21 02/17/22 Rx .COMPLEX #90 tabs metformin 500 mg tablet See Rx Instructions .Route 08/16/21 02/17/22 Rx .COMPLEX #180 tabs levothyroxine 100 mcg tablet 100 mcg PO QAM #30 tabs 01/24/22 02/17/22 Rx (Synthroid) montelukast 10 mg tablet See Rx Instructions .Route 02/03/22 02/17/22 Rx .COMPLEX #90 tabs fluticasone propionate 220 2 puff inhalation DAILY PRN 02/17/22 02/17/22 History mcg/actuation HFA aerosol inhaler Shortness Of Breath (Flovent HFA) Allergies Allergy/AdvReac Type Severity Reaction Status Date / Time milk [MILK] Allergy Severe INCREASE Verified 02/17/22 10:28 PHLEM PRODUCTION/DYSPHAGIA nafcillin [NAFCILLIN] Allergy Severe ITCHY Verified 02/17/22 10:28 RASH/HIVES clindamycin [CLINDAMYCIN] Allergy Mild BLOODY Verified 02/17/22 10:28 STOOL doxycycline [DOXYCYCLINE] Allergy Mild BLOODY Verified 02/17/22 10:28 STOOL hydrocodone [HYDROCODONE] Allergy Mild PATIENT Verified 02/17/22 10:28 REPORTS MAKES ME CRAZY trazodone [TRAZODONE] Allergy Mild TACHYCARDIA Verified 02/17/22 10:28 valdecoxib [VALDECOXIB] Allergy Mild TACHYCARDIA Verified 02/17/22 10:28 Review of Systems Review of Systems ROS: Yes All systems reviewed with the patient and are negative except as otherwise documented Exam Vital Signs (past 8 hours): - 02/17/22 09:55 09/05/22 10:49 02/17/22 10:20 Temperature 97.7 F Pulse Rate 114 H 126 H Respiratory Rate 20 Blood Pressure 122/77 126/72 122/77 Pulse Oximetry 94 Oxygen Delivery Method Room Air 02/17/22 10:20 02/17/22 10:30 02/17/22 10:48 Temperature Pulse Rate 72 126 H Respiratory Rate Blood Pressure 126/72 Pulse Oximetry 94 94 Oxygen Delivery Method 02/17/22 10:48 02/17/22 11:00 02/17/22 11:01 Temperature Pulse Rate 122 H 116 H Respiratory Rate Blood Pressure 140/77 Pulse Oximetry 97 97 Oxygen Delivery Method 02/17/22 11:01 02/17/22 11:30 02/17/22 11:30 Temperature Pulse Rate 112 H 107 H Respiratory Rate Blood Pressure 133/74 Pulse Oximetry 99 96 Oxygen Delivery Method Room Air 02/17/22 12:00 02/17/22 12:00 02/17/22 12:30 Temperature Pulse Rate 107 H Respiratory Rate Blood Pressure 130/64 128/63 Pulse Oximetry 97 Oxygen Delivery Method 02/17/22 12:30 02/17/22 13:00 02/17/22 13:00 Temperature Pulse Rate 117 H 115 H Respiratory Rate Blood Pressure 129/63 Pulse Oximetry 97 97 Oxygen Delivery Method 02/17/22 13:30 02/17/22 13:30 Temperature Pulse Rate 114 H Respiratory Rate Blood Pressure 125/78 Pulse Oximetry 94 Oxygen Delivery Method Oxygen Delivery Method Room Air Narrative Exam Narrative: Elderly female in no obvious distress lying in her hospital bed HEENT-normocephalic atraumatic Neck-no bruits Lungs-clear with good breath sounds Heart-irregularly irregular with minimal tachycardia grade 2-3 over 6 systolic ejection murmur throughout the entire precordium without specific radiation, no thrill Abdomen-positive bowel tones soft nontender nondistended size limits exam to some extent Extremities-chronic appearing edema in the lower legs, no cyanosis or clubbing Objective Labs Result Diagrams: 02/17/22 10:18 02/17/22 10:18 Labs: Laboratory Results - last 24 hr 02/17/22 02/17/22 02/17/22 10:16 10:18 10:18 WBC 25.9 H RBC 4.13 Hgb 12.3 Hct 36.3 MCV 88.1 MCH 29.9 MCHC 34.0 RDW 13.3 Plt Count 578 H Neut % (Auto) Not Reportable Lymph % (Auto) Not Reportable [place] % (Auto) Not Reportable Eos % (Auto) Not Reportable Baso % (Auto) Not Reportable Lymph # (Auto) Not Reportable [place] # (Auto) Not Reportable Baso # (Auto) Not Reportable Total Counted 100 Seg Neutrophils % 79.0 H Band Neutrophils % 13.0 H Lymphocytes % (Manual) 5.0 L Monocytes % (Manual) 3.0 Neutrophils # (Manual) 40431 H RBC Morphology Normal morphology PT 16.4 H INR 1.4 H APTT 28 Sodium Potassium Chloride Carbon Dioxide BUN Creatinine Estimated GFR BUN/Creatinine Ratio Glucose Lactate Calcium Total Bilirubin AST ALT Alkaline Phosphatase Troponin I Total Protein Albumin Globulin Albumin/Globulin Ratio Lipase Procalcitonin Urine Color Yellow Urine Appearance Turbid Urine pH 8.5 H Ur Specific [place] >=1.030 H Urine Protein 3+ H Urine Glucose (UA) Negative Urine Ketones Negative Urine Occult Blood 3+ H Urine Nitrate Negative Urine Bilirubin Negative Urine Urobilinogen 0.2 Ur Leukocyte Esterase 2+ H Urine RBC 30-100/hpf H Urine WBC >100/hpf H Urine Bacteria Many (>30) H Ur Culture Indicated? Specimen cultured SARS-CoV-2 (PCR) 02/17/22 02/17/22 02/17/22 10:18 10:18 10:18 WBC RBC Hgb Hct MCV MCH MCHC RDW Plt Count Neut % (Auto) Lymph % (Auto) [place] % (Auto) Eos % (Auto) Baso % (Auto) Lymph # (Auto) [place] # (Auto) Baso # (Auto) Total Counted Seg Neutrophils % Band Neutrophils % Lymphocytes % (Manual) Monocytes % (Manual) Neutrophils # (Manual) RBC Morphology PT INR APTT Sodium 134 L Potassium 3.2 L Chloride 98 Carbon Dioxide 25 BUN 37 H Creatinine 1.15 H Estimated GFR 50 L BUN/Creatinine Ratio 32.2 H Glucose 120 H Lactate 2.2 H Calcium 10.1 Total Bilirubin 0.9 AST 56 H ALT 59 H Alkaline Phosphatase 130 H Troponin I Total Protein 8.5 H Albumin 3.5 Globulin 5.0 H Albumin/Globulin Ratio 0.7 L Lipase 45 Procalcitonin 3.17 H Urine Color Urine Appearance Urine pH Ur Specific [place] Urine Protein Urine Glucose (UA) Urine Ketones Urine Occult Blood Urine Nitrate Urine Bilirubin Urine Urobilinogen Ur Leukocyte Esterase Urine RBC Urine WBC Urine Bacteria Ur Culture Indicated? SARS-CoV-2 (PCR) Negative 02/17/22 02/17/22 10:40 12:40 WBC RBC Hgb Hct MCV MCH MCHC RDW Plt Count Neut % (Auto) Lymph % (Auto) [place] % (Auto) Eos % (Auto) Baso % (Auto) Lymph # (Auto) [place] # (Auto) Baso # (Auto) Total Counted Seg Neutrophils % Band Neutrophils % Lymphocytes % (Manual) Monocytes % (Manual) Neutrophils # (Manual) RBC Morphology PT INR APTT Sodium Potassium Chloride Carbon Dioxide BUN Creatinine Estimated GFR BUN/Creatinine Ratio Glucose Lactate 1.9 Calcium Total Bilirubin AST ALT Alkaline Phosphatase Troponin I 0.016 Total Protein Albumin Globulin Albumin/Globulin Ratio Lipase Procalcitonin Urine Color Urine Appearance Urine pH Ur Specific [place] Urine Protein Urine Glucose (UA) Urine Ketones Urine Occult Blood Urine Nitrate Urine Bilirubin Urine Urobilinogen Ur Leukocyte Esterase Urine RBC Urine WBC Urine Bacteria Ur Culture Indicated? SARS-CoV-2 (PCR) Assessment & Plan Assessment & Plan narrative: 1. UTI-patient with multiple UTIs over time most recently growing Klebsiella in June in August of this year that was sensitive to ceftriaxone. Prior to that also had E coli on several occasions which was sensitive to all tested antibiotics. Patient despite her marked leukocytosis does not appear to be septic with the exception possibly of the new atrial fibrillation. She will continue with some volume replacement and parental antibiotics. Antibiotics will be tailored once bacteria are identified and sensitivities determined. 2. New onset atrial fibrillation-patient with negative troponin. Echocardiogram has been ordered. Will go with rate control with oral metopro lol. Will use parental metoprolol if necessary to control rate. Thyroid will need to be checked as she is on thyroid replacement therapy. Consider anticoagulation prior to discharge 3. Type 2 diabetes-I am going to continue patient off of her metformin to start with given the infectious issues as above. Will monitor her numbers with a carb consistent diet and use coverage insulin as necessary 4. Essential hypertension-patient on multiple antihypertensives. I am going to hold some of those at this time as I would like to use an agent that also would help with rate control for her new onset atrial fibrillation. May require some alteration in her home medication regimen to be determined over the next 24-72 hours 5. Hypothyroidism-continue patient's usual dose thyroid but check a TSH and or T4 with the new onset atrial fibrillation as above 6. VTE prophylaxis-Lovenox for now but if it is decided to fully anticoagulated because of her atrial fibrillation Lovenox can be discontinued 7. Code status-patient would want to be resuscitated at this point in the event of a sudden cardiac or respiratory arrest so she is made a full code (discussed with her that I am not anticipating such event to happen at this point no reason to be thinking along those lines) 8. Hypokalemia-likely secondary to her chronic chlorthalidone therapy. She is on potassium replacement home but does not appear to be sufficient at this time. Will replace this orally, hold her chlorthalidone recheck numbers in the morning, including magnesium Patient deserves inpatient hospitalization given her marked leukocytosis her new onset atrial fibrillation and failure to manage at home with EMS being called multiple times. She will require at least 48 hours in the hospital that will span 2 separate midnights COVID-19 COVID-19 status: Negative Result date/Date tested (Pos, Neg/Pending): 02/17/22 Time Spent With Patient Critical Care time: I spent a total of [] minutes of critical care time on this patient's care today; this time is exclusive of procedural time.
[2022-02-17] MEDS: METOPROLOL IR 25 MG TABLET PO (15:15)
[2022-02-17] MEDS: ACETAMINOPHEN 325 MG TABLET 650 MG PO ×2 (15:15→20:48)
[2022-02-17] MEDS: POTASSIUM CHLORIDE 20 MEQ TAB 40 MEQ PO ×2 (15:15→21:20)
[2022-02-17 15:59] LABS: TSH w/ Reflex to FT4 0.99 uIU/mL (0.47-4.68)
[2022-02-17] MEDS: SODIUM CHLORIDE 0.9% 1,000 ML 100 ML IV (17:18)
[2022-02-17] MEDS: INSULIN LISPRO 100 UNIT/ML 3ML VIAL SUBCUT (17:18)
--- NOTE | 2022-02-17 18:43 | PC.NURSE ---
Pt is AxOx4, calm and cooperative. VSS except HR is tachy. Pt is on Tele and RA. Pt c/o pain on R hip and recieved PRN Tylenol with good effect. Pt has NS is running 100 ml/hr continous and purewick on. IN ER, RN unable to place sy catheter so pt has purewick in place. It is draining small amt of urine. BG142 at bedtime and recieved 1 unit insulin for coverage. Pt has couple of open sore on her back of R thigh, groin and breast fold redness. Pt has improved a lot since admitted after recieved lots of fluid. No other change. continue monitor.
[2022-02-17] MEDS: ZOLPIDEM 5 MG TABLET PO (20:48)
[2022-02-17] MEDS: MONTELUKAST 10 MG TABLET PO (20:48)
[2022-02-17] MEDS: METOPROLOL IR 25 MG TABLET 50 MG PO (20:50)
[2022-02-17] MEDS: PANTOPRAZOLE DR 40 MG TABLET PO (21:19)
[2022-02-18] MEDS: NYSTATIN POWDER 15GM 1 APPLIC TOP ×4 (00:31→22:05)
[2022-02-18 02:00] VITALS: BP 111/65; PULSE 105; RESP 20; TEMP 37.4; O2SAT 95
[2022-02-18] MEDS: ACETAMINOPHEN 325 MG TABLET 650 MG PO ×2 (04:20→22:08)
[2022-02-18 06:17] LABS: Add Manual Diff / Slide Review NO; Basophils Absolute Auto 0 /uL (0-100); Basophils Percent Auto 0.2 % (0-2); Eosinophils Absolute Auto 0 /uL (0-450); Eosinophils Percent Auto 0.1 % (2-4); Hematocrit 32.1 % (36-46); Hemoglobin 10.6 g/dL (12.0-16.0); Lymphocytes Absolute Auto 1100 /uL (1100-4500); Lymphocytes Percent Auto 4.4 % (25-40); Mean Corpuscular HGB Conc 33.1 % (30-36); Mean Corpuscular Hemoglobin 29.2 PG (26-34); Mean Corpuscular Volume 88.2 fL (80-100); Monocytes Absolute Auto 1300 /uL (0-900); Monocytes Percent Auto 5.5 % (3-14); Neutrophils Absolute Auto 21700 /uL (1500-7000); Neutrophils Percent Auto 89.8 % (50-75); Platelet Count 457 X10^3/uL (150-400); Red Blood Cell Count 3.64 X10^6/uL (4.0-5.2); Red Cell Distribution Width 13.6 % (11.6-14.8); White Blood Cell Count 24.2 X10^3/uL (4.5-11.0)
[2022-02-18 06:29] LABS: Blood Urea Nitrogen 26 mg/dL (7-17); Calcium 8.7 mg/dL (8.4-10.2); Carbon Dioxide 19 mmol/L (22-32); Chloride 109 mmol/L (98-107); Estimated Glomerular Filt Rate 56 mL/min (>60); Glucose 110 mg/dL (80-110); HEMOLYSIS < 15 (0-50); Magnesium 1.3 mg/dL (1.6-2.3); Potassium 3.3 mmol/L (3.4-5.1); Sodium 133 mmol/L (137-145)
--- NOTE | 2022-02-18 07:00 | DI.ECHO.S_ITS ---
[facility]---------+ [facility] +---------+ : : [address] : : : : [id number] : : : : Phone: [phone]+ Echocardiogram Report + + :Name: AZAEL VALLADARES Study Date: 02/18/2022 Height: 64 in : :[facility] ReadingLocation: Weight: 238 lb : : Gender: Female BSA: 2.1 m2 : :: 1945 Age: 76 yrs BP: 111/65 mmHg: :Reason For Study: Atrial fibrillation : :Ordering Physician: KATHRIN, : :AUSTEN Villafuerte Performed By: John Anderson : :Referring: AUSTEN PINON : + + Interpretation Summary There is mild concentric left ventricular hypertrophy. The ejection fraction is estimated to be 50-55%. Diastolic function could not be accurately assessed due to atrial fibrillation. The right ventricle is moderately dilated. Right ventricular systolic function is moderately reduced. There is mild mitral regurgitation. There is moderate to severe tricuspid regurgitation. The right ventricular systolic pressure is estimated to be at least 48 mmHg based on an estimated right atrial pressure of 15 mm Hg. Procedure: A two-dimensional transthoracic echocardiogram with color flow and Doppler was performed. The study quality was technically adequate. There is no prior echocardiogram noted for this patient. Left Ventricle: The left ventricle is normal in size. There is mild concentric left ventricular hypertrophy. The ejection fraction is estimated to be 50-55%. There are no focal wall motion abnormalities. Diastolic function could not be accurately assessed due to atrial fibrillation. Right Ventricle: The right ventricle is moderately dilated. Right ventricular systolic function is moderately reduced. Atria: There is moderate biatrial enlargement. The interatrial septum grossly appears intact with no obvious evidence for an atrial septal defect. Mitral Valve: There is mild mitral annular calcification. There is mild mitral regurgitation. Aortic Valve: There is mild aortic valve sclerosis. The aortic valve is trileaflet. There is no aortic valve stenosis. No aortic regurgitation is present. Tricuspid Valve: The tricuspid valve is normal in structure and function. There is moderate to severe tricuspid regurgitation. The right ventricular systolic pressure is estimated to be at least 48 mmHg based on an estimated right atrial pressure of 15 mm Hg. Pulmonic Valve: The pulmonic valve is normal in structure and function. Great Vessels: The aortic root is normal size. The dimensions of the ascending aorta are normal. The IVC is dilated (diameter is greater than 2.1 cm) and it collapses less than 50% with a sniff. This suggests a high right atrial pressure of 15 mm Hg. Pericardium/ Pleura There is no pericardial effusion. There is no pleural effusion. MMode/2D Measurements & Calculations LVIDd: 4.4 cm LVOT diam: 1.9 cm LVIDs: 3.2 cm Ao root diam: 3.3 cm FS: 27.3 % asc Aorta Diam: 3.2 cm IVSd: 1.3 cm LVPWd: 1.3 cm LV lynch. diameter/BSA (cm/m^2): 2.1 LV sys. diameter/BSA (cm/m^2): 1.5 LA dimension: 4.2 cm RA long axis: 5.9 cm LA A2 area: 24.6 cm2 LA A4 area: 25.4 cm2 LA length (vol): 6.1 cm LA vol: 86.4 ml LA vol index: 41.0 ml/m2 TAPSE_phl: 1.4 cm Doppler Measurements & Calculations Ao V2 max: 169.0 cm/sec LVOT Max Bertt: 107.0 cm/sec Ao V2 mean: 122.0 cm/sec LV V1 max P.6 mmHg Ao max P.0 mmHg LV V1 VTI: 15.3 cm Ao mean P.0 mmHg CALI(I,D): 1.7 cm2 Ao V2 VTI: 25.4 cm CALI(V,D): 1.8 cm2 sev ratio: 0.60 CALI indexed to BSA (cm^2/m^2): 0.81 TR max brett: 285.0 cm/sec SV(LVOT): 43.4 ml TR max P.5 mmHg AV VR_phl: 0.63 CALI(VTI)/BSA_phl: 0.81 Reading Physician:12:19 PM
--- NOTE | 2022-02-18 07:40 | PM.PN.1 ---
Subjective Subjective Date Patient Seen: 02/18/22 Time Patient Seen: 07:40 Interval history: Patient seen and evaluated this morning. She is doing well. Complaining of bumps and bruises from her fall. She has lots of weakness she says. But does feel little bit better. She has an intermittent cough she does take Singulair at home she would like to take that here as she feels like her allergies are bothering her. We discussed the patient's diagnosis of a urinary tract infection and atrial fibrillation. We discussed further workup and evaluation of atrial fibrillation with the patient and the need for chronic anticoagulation. Blood pressures looked much better. Pulse is still little bit tachycardic she still in atrial fibrillation. White blood cell count is stable and starting to trend down a little bit. Exam Vital Signs (past 8 hours): - 02/18/22 02:00 Temperature 99.3 F Pulse Rate 105 H Respiratory Rate 20 Blood Pressure 111/65 Pulse Oximetry 95 Oxygen Flow Rate 0 Oxygen Delivery Method Room Air Oxygen Flow Rate 0 Narrative Exam Narrative: General: Alert oriented good historian 76-year-old female HEENT: Pupils equal round and reactive or mucosa is dry neck is supple Cardio: S1-S2 distant heart sounds. Respiratory: Normal respiratory effort lungs are clear Abdomen: Soft obese nontender Extremities: Warm dry perfused. Some lower extremity edema Neurologic: Intact Objective Labs Result Diagrams: 02/19/22 05:36 02/19/22 05:36 Labs: Laboratory Results - last 24 hr 02/17/22 02/17/22 02/17/22 10:16 10:18 10:18 WBC 25.9 H RBC 4.13 Hgb 12.3 Hct 36.3 MCV 88.1 MCH 29.9 MCHC 34.0 RDW 13.3 Plt Count 578 H Neut % (Auto) Not Reportable Lymph % (Auto) Not Reportable [place] % (Auto) Not Reportable Eos % (Auto) Not Reportable Baso % (Auto) Not Reportable Neut # (Auto) Lymph # (Auto) Not Reportable [place] # (Auto) Not Reportable Eos # (Auto) Baso # (Auto) Not Reportable Total Counted 100 Seg Neutrophils % 79.0 H Band Neutrophils % 13.0 H Lymphocytes % (Manual) 5.0 L Monocytes % (Manual) 3.0 Neutrophils # (Manual) 09245 H RBC Morphology Normal morphology PT 16.4 H INR 1.4 H APTT 28 Sodium Potassium Chloride Carbon Dioxide BUN Creatinine Estimated GFR BUN/Creatinine Ratio Glucose Lactate Calcium Magnesium Total Bilirubin AST ALT Alkaline Phosphatase Troponin I Total Protein Albumin Globulin Albumin/Globulin Ratio Lipase Procalcitonin TSH Urine Color Yellow Urine Appearance Turbid Urine pH 8.5 H Ur Specific [place] >=1.030 H Urine Protein 3+ H Urine Glucose (UA) Negative Urine Ketones Negative Urine Occult Blood 3+ H Urine Nitrate Negative Urine Bilirubin Negative Urine Urobilinogen 0.2 Ur Leukocyte Esterase 2+ H Urine RBC 30-100/hpf H Urine WBC >100/hpf H Urine Bacteria Many (>30) H Ur Culture Indicated? Specimen cultured SARS-CoV-2 (PCR) 02/17/22 02/17/22 02/17/22 10:18 10:18 10:18 WBC RBC Hgb Hct MCV MCH MCHC RDW Plt Count Neut % (Auto) Lymph % (Auto) [place] % (Auto) Eos % (Auto) Baso % (Auto) Neut # (Auto) Lymph # (Auto) [place] # (Auto) Eos # (Auto) Baso # (Auto) Total Counted Seg Neutrophils % Band Neutrophils % Lymphocytes % (Manual) Monocytes % (Manual) Neutrophils # (Manual) RBC Morphology PT INR APTT Sodium 134 L Potassium 3.2 L Chloride 98 Carbon Dioxide 25 BUN 37 H Creatinine 1.15 H Estimated GFR 50 L BUN/Creatinine Ratio 32.2 H Glucose 120 H Lactate 2.2 H Calcium 10.1 Magnesium Total Bilirubin 0.9 AST 56 H ALT 59 H Alkaline Phosphatase 130 H Troponin I Total Protein 8.5 H Albumin 3.5 Globulin 5.0 H Albumin/Globulin Ratio 0.7 L Lipase 45 Procalcitonin 3.17 H TSH Urine Color Urine Appearance Urine pH Ur Specific [place] Urine Protein Urine Glucose (UA) Urine Ketones Urine Occult Blood Urine Nitrate Urine Bilirubin Urine Urobilinogen Ur Leukocyte Esterase Urine RBC Urine WBC Urine Bacteria Ur Culture Indicated? SARS-CoV-2 (PCR) Negative 02/17/22 02/17/22 02/17/22 10:18 10:40 12:40 WBC RBC Hgb Hct MCV MCH MCHC RDW Plt Count Neut % (Auto) Lymph % (Auto) [place] % (Auto) Eos % (Auto) Baso % (Auto) Neut # (Auto) Lymph # (Auto) [place] # (Auto) Eos # (Auto) Baso # (Auto) Total Counted Seg Neutrophils % Band Neutrophils % Lymphocytes % (Manual) Monocytes % (Manual) Neutrophils # (Manual) RBC Morphology PT INR APTT Sodium Potassium Chloride Carbon Dioxide BUN Creatinine Estimated GFR BUN/Creatinine Ratio Glucose Lactate 1.9 Calcium Magnesium Total Bilirubin AST ALT Alkaline Phosphatase Troponin I 0.016 Total Protein Albumin Globulin Albumin/Globulin Ratio Lipase Procalcitonin TSH 0.99 Urine Color Urine Appearance Urine pH Ur Specific [place] Urine Protein Urine Glucose (UA) Urine Ketones Urine Occult Blood Urine Nitrate Urine Bilirubin Urine Urobilinogen Ur Leukocyte Esterase Urine RBC Urine WBC Urine Bacteria Ur Culture Indicated? SARS-CoV-2 (PCR) 02/18/22 02/18/22 05:38 05:38 WBC 24.2 H RBC 3.64 L Hgb 10.6 L Hct 32.1 L MCV 88.2 MCH 29.2 MCHC 33.1 RDW 13.6 Plt Count 457 H Neut % (Auto) 89.8 H Lymph % (Auto) 4.4 L [place] % (Auto) 5.5 Eos % (Auto) 0.1 L Baso % (Auto) 0.2 Neut # (Auto) 81154 H Lymph # (Auto) 1100 [place] # (Auto) 1300 H Eos # (Auto) 0 Baso # (Auto) 0 Total Counted Seg Neutrophils % Band Neutrophils % Lymphocytes % (Manual) Monocytes % (Manual) Neutrophils # (Manual) RBC Morphology PT INR APTT Sodium 133 L Potassium 3.3 L Chloride 109 H Carbon Dioxide 19 L BUN 26 H Creatinine 1.04 Estimated GFR 56 L BUN/Creatinine Ratio 25.0 H Glucose 110 Lactate Calcium 8.7 Magnesium 1.3 L Total Bilirubin AST ALT Alkaline Phosphatase Troponin I Total Protein Albumin Globulin Albumin/Globulin Ratio Lipase Procalcitonin TSH Urine Color Urine Appearance Urine pH Ur Specific [place] Urine Protein Urine Glucose (UA) Urine Ketones Urine Occult Blood Urine Nitrate Urine Bilirubin Urine Urobilinogen Ur Leukocyte Esterase Urine RBC Urine WBC Urine Bacteria Ur Culture Indicated? SARS-CoV-2 (PCR) [facility] Medical History Anxiety Asthma Breast cancer Controlled type 2 diabetes mellitus without complication Hypertension Hypothyroidism Neurogenic bladder Osteomyelitis Varicose vein of leg Surgical History Anesthesia Breast cancer Encounter for debridement of skin (~2012) History of back surgery History of hip surgery Status post appendectomy Status post cholecystectomy Status post hysterectomy Family History Father Hypertension Mother Hypertension OA (osteoarthritis) Social History marital status: household members: spouse Smoking Status: Never smoker alcohol intake: never substance use type: does not use Assessment & Plan Assessment and plan (1) Sepsis: Status: Acute (2) Urinary tract infection: Status: Acute Plan Urinary tract infection causing significant weakness and falls. Patient has a history of multiple urinary tract infections she self catheterizes. Patient has systemic symptoms due to her urinary tract infection including leukocytosis and weakness. Patient is on appropriate antibiotic at this point with ceftriaxone 2 g. Will continue to follow culture results. In the past she has had multiple sensitivities to different antibiotics. She currently has Gram-negative bacilli in her urine a probably E coli in her urine causing the source of infection will continue with current antibiotics and trend white blood cell count which is still high. Atrial fibrillation with rapid ventricular patient has new onset atrial fibrillation. Will continue workup with this. She was started on a beta-tarah will continue to use beta-blockers for rate control. We discussed risks and benefits of starting anticoagulation with the patient. She will be started on appropriate anticoagulation for her atrial fibrillation. We did discussed risk benefits of this and patient agrees. We await echocardiogram results for further workup and evaluation. She has had a recent thyroid test. Type 2 diabetes non-insulin dependent. Patient will have monitoring of her blood sugars here in the hospital. Her metformin has been on hold. Will go ahead and restart that. Monitor blood sugars per protocol and carbohydrate consistent diet Hypertension. Continue to monitor blood pressure. It is stable at this point will make adjustments based on the addition of her new beta-tarah therapy. Hypokalemia. Continue with potassium replacement monitor closely electrolytes DVT prophylaxis with Lovenox. Will stop this and start with full anticoagulation. Time Spent With Patient Critical Care time: I spent a total of [] minutes of critical care time on this patient's care today; this time is exclusive of procedural time.
--- NOTE | 2022-02-18 08:50 | PC.RNWOUND ---
Patient resting in bed, is already positioned onto right side with pillows so posterior thigs are offloaded, heels floated on pillow. Patient has a 2.5 x 1.8 x 0.1cm Stage 2 pressure injury to the posterior left thigh, present on admission, with well-defined edges and a small amount of serous drainage. Right posterior thigh has a 3 x 3cm area of non-blanchable erythema consistent with a Stage 1 pressure injury, also present on admission. Patient says these injuries are where the backs of my legs hit in my wheelchair. Patient says she has had these for 'some time and that she and her have tried everything you can think of to help pad these areas when patient sits in wheelchair. These wounds are cleansed with saline and dressed with allevyn bordered foam dressings. Bilateral heels are reddened, boggy, blanchable. There is a 1x1cm callused area which patient is aware of to the Left 5th metatarsal prominence. Patient's heels/feet are moisturized with lotion and repositioned on pillow to keep heels floated off bed surface. Patient is cleansed up of stool incontinence and sacrogluteal area and perineum appear free of skin breakdown, barrier cream in use to gluteal area.
[2022-02-18] MEDS: CITALOPRAM 10 MG TABLET 20 MG PO (09:21)
[2022-02-18] MEDS: METOPROLOL IR 25 MG TABLET 50 MG PO ×3 (09:21→21:57)
[2022-02-18] MEDS: APIXABAN 5 MG TABLET PO ×2 (09:21→21:56)
--- NOTE | 2022-02-18 09:32 | CM.DANOTE ---
DCP: Case received, EMR reviewed and met with patient. Introduced self and role. Was able to obtain information regarding patient's baseline activity status prior to hospitalization, as well as her current living situation. DCP assessment completed with information currently available. Patient is a 76 year old female who admitted yesterday afternoon to the care of the hospitalist team. PCP: Dr. Groves. Payer: confirmed: Medicare/[employer] [place] [employer]. Patient came to the hospital via ambulance secondary to weakness, inability to keep herself upright. She had had some falls over the last 24 hours. Patient has history of diabetes, back surgeries, and recurrent UTIS. Patient does self cath. Patient was diagnosed with UTI, and she was also nted to be in afib, and was given IV Diltiazem in the ER. Met with patient in her room. She was laying in bed, alert and oriented. Confirmed that she resides with he spouse, Pola, here in [place]. She does not drive. She uses a walker, and has a wheel-chair. Her spouse helps with meals P: DCP to follow closely, and will see if patient receives P.T. orders as well. Nursing noted that patient has skin issues as well, coccyx area. Patient may benefit with home health. Emma Iverson RN/Lease Administration Analyst Discharge Planning/Care Management CM Discharge Assessment Start: 02/18/22 09:30 Freq: Status: Active Protocol: Document 02/18/22 09:30 (Rec: 02/18/22 09:32 [id number]) Discharge Planning Assessment Assigned Doctor Of Optometry Emma Iverson RN/Lease Administration Analyst Advance Directives? No History Provided By Patient,Medical Record Prior Living Arrangements House Household Members spouse Type of transporation used prior to Relies on Others admit Independent with ADL's Yes Is patient alert and oriented? Yes Needs Assistance With Meal Prep,Home Chores / Shopping Caregiver for Another No DME Already Rented / Owned FWW / Walker Comment Weakness, some skin issues, frequent falls. Discharge Plan Home with Home Health Referrals Initiated Other Additional Comment Patient currently has no P.T. orders, will follow closely to see if orders are placed. Whiteboard Updated in Patient Room with Yes name and ext. # of Doctor Of Optometry Review Status In Process Next Review Type Continued Stay Review
[2022-02-18 10:00] VITALS: BP 101/57; PULSE 111; RESP 22; TEMP 36.3; O2SAT 95
[2022-02-18] MEDS: POTASSIUM CHLORIDE 20 MEQ TAB 40 MEQ PO ×2 (10:28→16:21)
[2022-02-18] MEDS: PANTOPRAZOLE DR 40 MG TABLET PO ×2 (10:28→22:12)
[2022-02-18] MEDS: METFORMIN HCL 500 MG TABLET PO (10:29)
[2022-02-18] MEDS: MAGNESIUM CHLORIDE 64 MG TABLET 128 MG PO ×2 (10:29→18:26)
[2022-02-18] MEDS: cefTRIAXone 2,000 MG in SODIUM CHLORIDE 0.9% 100 ML 200 MG IV (10:29)
[2022-02-18] MEDS: LEVOTHYROXINE 100 MCG TABLET PO (10:29)
[2022-02-18] MEDS: LORazepam 0.5 MG TABLET PO ×2 (12:36→22:12)
[2022-02-18 14:00] VITALS: BP 106/54; PULSE 103; RESP 24; TEMP 37.6; O2SAT 95
[2022-02-18 18:00] VITALS: BP 109/54; PULSE 110; RESP 22; TEMP 37.3; O2SAT 96
--- NOTE | 2022-02-18 18:52 | PC.NURSE ---
Pt has many concerns. She has dietary issues and diff swallowing. She is having problems with her diet. MD called and orders for general so pt may choose what she wants and to see the RD. Pt also feels she has quite a bit of sputum and cough. Requested loratidine and cough syrup. Same ordered. Pt feels very weak, and PT has been ordered. However pt reports she can only do so much and doesn't want PT to push her further than she can go. Spouse would like to be here when PT comes to see her. Will make them aware. Pt has had previous back surgery and her back surgeon told her to never go see a PT per her. Hopefully it will be a smooth transition tomorrow. Cont w/poc.
[2022-02-18 19:00] VITALS: O2SAT 96
[2022-02-18 21:23] VITALS: BP 103/84; PULSE 78; RESP 16; TEMP 37.1; O2SAT 96
[2022-02-18] MEDS: ZOLPIDEM 5 MG TABLET PO (21:57)
[2022-02-18] MEDS: LORATADINE 10 MG TABLET PO (21:58)
[2022-02-18] MEDS: MONTELUKAST 10 MG TABLET PO (22:05)
[2022-02-18] MEDS: guaiFENesin Solution 100 MG/5 ML UDC PO (22:08)
[2022-02-19] VITALS (7 sets, daily range): BP systolic 101–138; BP diastolic 59–67; PULSE 64–108; RESP 16–17; TEMP 36.4–37.1; O2SAT 93–98
[2022-02-19] MEDS: ACETAMINOPHEN 325 MG TABLET 650 MG PO ×2 (02:42→18:27)
[2022-02-19 06:01] LABS: Hematocrit 29.7 % (36-46); Mean Corpuscular HGB Conc 33.7 % (30-36); Mean Corpuscular Hemoglobin 29.7 PG (26-34); Mean Corpuscular Volume 88.3 fL (80-100); Platelet Count 482 X10^3/uL (150-400); Red Blood Cell Count 3.37 X10^6/uL (4.0-5.2); Red Cell Distribution Width 13.6 % (11.6-14.8)
[2022-02-19 06:02] LABS: Alanine Aminotransferase 87 IU/L (<35); Albumin 2.8 g/dL (3.5-5.0); Albumin Globulin Ratio 0.7 (1.0-2.8); Alkaline Phosphatase 129 U/L (38-126); Aspartate Aminotransferase 74 IU/L (14-36); BUN Creatinine Ratio 24.2 (6-22); Bilirubin Total 0.6 mg/dL (0.2-1.3); Blood Urea Nitrogen 23 mg/dL (7-17); Calcium 9.1 mg/dL (8.4-10.2); Carbon Dioxide 19 mmol/L (22-32); Chloride 109 mmol/L (98-107); Estimated Glomerular Filt Rate > 60 mL/min (>60); Globulin 4.2 g/dL (1.7-4.1); Glucose 93 mg/dL (80-110); HEMOLYSIS < 15 (0-50); Magnesium 1.4 mg/dL (1.6-2.3); Potassium 3.3 mmol/L (3.4-5.1); Sodium 138 mmol/L (137-145)
[2022-02-19 06:03] LABS: Add Manual Diff / Slide Review YES
[2022-02-19 06:26] LABS: Neutrophils Absolute Manual 12960 /uL (3000-5900); RBC Morphology Normal Morphology; Total Cells Counted 100
[2022-02-19] MEDS: LEVOTHYROXINE 100 MCG TABLET PO (06:32)
[2022-02-19] MEDS: PANTOPRAZOLE DR 40 MG TABLET PO ×2 (06:32→21:35)
[2022-02-19 06:44] LABS: Thyroid Stimulating Hormone 1.28 uIU/mL (0.47-4.68)
[2022-02-19] MEDS: APIXABAN 5 MG TABLET PO ×2 (09:31→21:44)
[2022-02-19] MEDS: CITALOPRAM 10 MG TABLET 20 MG PO (09:33)
[2022-02-19] MEDS: METOPROLOL IR 25 MG TABLET 50 MG PO ×3 (09:33→21:35)
[2022-02-19] MEDS: NYSTATIN POWDER 15GM 1 APPLIC TOP ×3 (09:34→21:36)
--- NOTE | 2022-02-19 10:15 | PT.IIE ---
Current Diagnoses Sepsis, unspecified organism (02/17/22) Morbid (severe) obesity due to excess calories (02/17/22) Neuromuscular dysfunction of bladder, unspecified (02/17/22) Urinary tract infection, site not specified (02/17/22) Surgical History (Last Reviewed 02/17/22 @ 19:36 by Anthony Gil MD) Anesthesia Breast cancer Encounter for debridement of skin (~2012) History of back surgery History of hip surgery Status post appendectomy Status post cholecystectomy Status post hysterectomy Medical History (Last Reviewed 02/17/22 @ 19:36 by Anthony Gil MD) Anxiety Asthma Breast cancer Controlled type 2 diabetes mellitus without complication Hypertension Hypothyroidism Neurogenic bladder Osteomyelitis Varicose vein of leg Physical Therapy Inpatient Evaluation/Re-Eval M1 PT/OT-IP Prior Functional Status Start: 02/19/22 13:14 Freq: NEEDED Status: Active Protocol: Document 02/19/22 10:15 AB (Rec: 02/19/22 13:32 AB [id number]) Medical Review Prior Functional Status Medical History Reviewed Yes Communication able to make needs known Mobility and Gait pt stated that she is usually in bed or on her manual w/c. stated that she is able to get up from the bed by herself and transfer to her manual w/c using a standard walking, wheels herself to the toilet door on her w/c and uses a FWW and ambulates ~ 4 ft to use the toilet. Social History Household Members spouse Living Arrangements House Number of Floors (Floors) Two Floors Number of Stairs To Enter/Railing? pt stays on the main level of the house no steps to enter Home Environment High Toilet,Tub/Shower Home Equipment Manual Wheelchair,Tub Transfer Bench,Hand Held Shower Additional Social History Comment pt has a tub transfer bench with slider but pt stated that she has not been able to do a shower for awhile and just been doing sponge bathing M2 PT-IP Current Condition Start: 02/19/22 13:14 Freq: NEEDED Status: Active Protocol: Document 02/19/22 10:15 AB (Rec: 02/19/22 13:32 AB [id number]) Physical Therapy Current Condition Current Condition Evaluation Date 02/19/22 Treatment Diagnosis UTI; difficulty in walking Onset Date 02/17/22 M3 PT-IP Subjective Start: 02/19/22 13:14 Freq: NEEDED Status: Active Protocol: Document 02/19/22 10:15 AB (Rec: 02/19/22 13:32 AB [email or web address]) Subjective Physical Therapy Visit Type Type Initial Evaluation Visit Start Time 10:15 Visit Stop Time 11:25 Total Visit Minutes 70 Number of GRINDER OPERATOR TOOL Visits 0 Physical Therapy Visit Comments Patient Comments agreeable to do PT M4 PT-IP Mobility and Gait Start: 02/19/22 13:14 Freq: NEEDED Status: Active Protocol: Document 02/19/22 10:15 AB (Rec: 02/19/22 13:32 AB [email or web address]) PT-Bed Mobility Assessment Supine to Sit Supine to Sit Maximum Assistance,Total Assistance,2 Person Assistance ,Head of Bed Elevated,Bedrails Scooting Scooting to Edge of Bed Dependent PT-Transfer Assessment Sit to and From Stand Sit to and from Stand Maximum Assistance,2 Person Assistance,Use of Upper Extremities Equipment Transfer Assistive Device Gait Belt,Front Wheeled Walker ,Standard Walker Orthotic/Prosthetic Devices or Brace: No Transfers Transfer Destination Chair Transfer Technique Stand Pivot Transfer Ability Level of Assist Maximum Assistance,2 Person Assistance,Use of Upper Extremities Comments Mobility Comments completed supine to sit max A x 2 to total A x 2 and max cues. required max A for sitting balance on EOB. increase posterior trunk lean. completed sit to stand max A x 2 and max cues with pt using standard walker. pt able to stand max A x 2 using standard walker and attempted to tranfer to chair but unable . instructed to sit back down on EOB. completed sit to stand again max A x 2 and max cues using FWW to stand pivot to chair max A x 2 and max cues. pt witih increase posterior LOB requiring max cues to use FWW. positioned on chair. call light and table placed within reach. spouse in room and is aware of SNF recommendation. Spouse is insistent that pt will be stronger in 3-4 days and stated that he wants the pt to stay in the hospital until pt is able to be back to her baseline level. educated pt and spouse regarding pt's mobility level and recommendation. informed dependency case manager. Gait Assessment Comments Gait Comments unable at this time PT-Balance Assessment Sitting Balance and Reactions Static Sitting Balance Ability Fair Dynamic Sitting Balance Ability Poor Standing Balance and Reactions Static Standing Balance Ability Poor Dynamic Standing Balance Ability Poor Device Used FWW M5 PT-IP Objective Assessments Start: 02/19/22 13:14 Freq: NEEDED Status: Active Protocol: Document 02/19/22 10:15 AB (Rec: 02/19/22 13:32 AB [email or web address]) Orientation Orientation/Cognition Level of Alertness Alert Orientation Name,Place,Situation Safety Awareness Decreased Safety Awareness Memory Description Short Term Impaired Gross Range of Motion Lower Extremity ROM Impairments (+) R knee crepitus Strength Lower Extremity Strength Assessment Bilaterally Impaired Hip 3-/5 Knee 3-/5 Muscle Tone Muscle Tone WNL Yes M6 PT-IP Treatment Start: 02/19/22 13:14 Freq: NEEDED Status: Active Protocol: Document 02/19/22 10:15 AB (Rec: 02/19/22 13:32 AB [email or web address]) Physical Therapy Treatment Education Education Provided Safety M7 PT-IP Assessment and Plan Start: 02/19/22 13:14 Freq: NEEDED Status: Active Protocol: Document 02/19/22 10:15 AB (Rec: 02/19/22 13:32 AB [email or web address]) PT Summary Assessment and Plan Potential Rehabilitation Potential Fair Status of Condition at Evaluation Evolving Summary Impairments Pain,ROM,Strength,Balance, Coordination,Sensation,Tone, Cognition,Bed Mobility, Transfers,Gait,Activity Tolerance Assessment Summary pt requiring max A x 2 to total A x 2 with bed mobility and transfers and unable to ambulate at this time. Recommending use of mechanical lift with nursing staff at this time for safety. Pt will need SNF rehab at this time. will continue to assess progress. Goals Bed Mobility Goal Minimal Assistance Transfer Goal Minimal Assistance,Front Wheeled Walker Gait Goal Minimal Assistance,Front Wheel Walker Gait Distance 10 Other Goals improve bed mobility, transfers and ambulation using FWW 20 ft SBA Days to Meet Goals 10 Frequency of Treatment Frequency Of Treatment Once a Day Treatment Plan Physical Therapy Treatment Plan Bed Mobility Training,Transfer Training,Gait Training, Therapeutic Exercise,Balance Retraining,Discharge Planning, Hot or Cold Pack,Neuromuscular Re-ed,Coordination Retraining ,Manual Therapy Precautions Other Precautions falls Recommendations To Nursing Amount of Assist Needed Mechanical Lift Discharge Recommendations PT Discharge Recommendations SNF Rehab Transportation Needs at Discharge Wheelchair/Cabulance
[2022-02-19] MEDS: cefTRIAXone 2,000 MG in SODIUM CHLORIDE 0.9% 100 ML 200 MG IV (10:46)
[2022-02-19] MEDS: MAGNESIUM CHLORIDE 64 MG TABLET 128 MG PO (10:46)
[2022-02-19] MEDS: POTASSIUM CHLORIDE 20 MEQ TAB 40 MEQ PO ×2 (11:03→17:09)
--- NOTE | 2022-02-19 11:25 | DIET.CONS ---
Dietary Consultation Note Admission Date: 02/17/2022 13:17 Assessment: 76y F admitted with weakness, UTI and pressure sores on backs of legs where legs touch wheelchair seat referred to nutrition for specialty dietary requirements related to soft textures. RD met with patient and at bedside. Pt states she has had difficulty swallowing and a fragile esophagus for 20y. Pt has been to [facility] ED 6x for retrieval of food items impacted in esophagus (most recently a large green onion). Pt suspects she has esinophilic esophagitis, as prior workup was unremarkable. Pt has never worked with a speech therapist and didn't think was necessary because she doesn't have a problem with talking, just swallowing. Pt avoids dry foods and dry meats, endorses xerostomia, no current use biotene or other mouth moisturizer. Pt avoiding most raw vegetables and has fear of foods getting stuck in her throat. This fear often leads to her skipping meals altogether. Pt admitted c weakness. Pt had milk listed as food allergy in chart, however pt enjoys cottage cheese. Pt states dairy not food allergy, she just prefers not to drink liquid milk secondary to increased phlegm production. Agreed to take off allergen list to enable pt to consume preferred dairy items while hospitalized. Pt unsure what foods may trigger her throat issues as it seems to wax and wane. Pt with well managed DM2, A1c 6.0 on metformin, however, pt is skipping meals which may influence BG. Ht: 162.56 cm Wt: 111 kg BMI: 40.9 Last BM: 02/19/22 (02/19/22 03:58) MNA: 8 Rich Score: 16 Diet: 02/17/22 Dinner Carbohydrate Consistent Diet Diet Modifications: Carbohydrate level: Medium (3 CHO) Bedtime snack: No 02/19/22 Breakfast General (Regular) Diet Diet Modifications: moist foods, soft May Advance Diet as Tolerated: No Safety Tray needed?: No Nutrition Percent Meal Consumed 10% 02/18/22 18:00 Percent Meal Consumed 10% 02/18/22 13:30 Percent Meal Consumed 25% 02/18/22 10:19 Percent Meal Consumed 50% 02/17/22 18:00 Labs: RBC 3.37 X10^6/uL (4.0-5.2) L 02/19/22 05:36 Hgb 10.0 g/dL (12.0-16.0) L 02/19/22 05:36 Hct 29.7 % (36-46) L 02/19/22 05:36 Creatinine 0.95 mg/dL (0.52-1.04) 02/19/22 05:36 Hemoglobin A1c 6.0 % (4.0-6.0) 02/18/22 05:38 Lactate 1.9 mmol/L (0.7-2.1) 02/17/22 12:40 Nutrition Diagnosis: limited diet r/t fear of food impaction in esophagus aeb pt to ED x6 for removal of food in esophagus, pt unsure etiology of difficulty swallowing, pt avoids dry and raw foods. Interventions: 1. Adjusted pts diet to include moist foods. 2. Requested referral to Speech Therapy for further investigation as pt presenting with weakness and often skipping meals r/t fear of eating. Electronically Signed by: Kiara Shaffer 02/19/22 11:25 Clinical Dietitian [address] [address]
[2022-02-19] MEDS: LORATADINE 10 MG TABLET PO ×2 (12:33→21:35)
--- NOTE | 2022-02-19 13:04 | PM.PN.1 ---
Subjective Subjective Date Patient Seen: 02/19/22 Time Patient Seen: 13:05 Interval history: Patient did well yesterday. Stopped IV fluids. She is eating little bit better. Patient is not very ambulatory at home. Goes from bed wheelchair to couch. Patient's provides caregiver support. She is still feeling weak. She says she slept well last night. Vital signs have been stable no fever temperature. Eating okay. Still having some difficulty with swallowing. Swallow evaluation will be done today. Working with physical therapy. Labs reviewed with patient and . Exam Vital Signs (past 8 hours): - 02/19/22 05:27 02/19/22 09:46 02/19/22 10:00 Temperature 98.7 F 98.3 F Pulse Rate 66 93 H Respiratory Rate 17 16 Blood Pressure 101/59 L 133/67 Pulse Oximetry 95 98 95 Oxygen Delivery Method Room Air Oxygen Flow Rate 0 0 Oxygen Delivery Method Room Air Oxygen Flow Rate 0 Narrative Exam Narrative: Gen.: Alert and oriented x3 no apparent distress. HEENT: Pupils equal round and reactive or mucosa is moist Cardio: S1-S2 regular rate and rhythm no murmurs appreciated. Respiratory: Lungs are clear to auscultation no wheezes or crackles normal respiratory effort. Abdomen: Soft nontender Extremities: Some mild weakness although normal tone no edema Objective Labs Result Diagrams: 02/19/22 05:36 02/19/22 05:36 Labs: Laboratory Results - last 24 hr 02/19/22 02/19/22 02/19/22 05:36 05:36 05:36 WBC 16.0 H RBC 3.37 L Hgb 10.0 L Hct 29.7 L MCV 88.3 MCH 29.7 MCHC 33.7 RDW 13.6 Plt Count 482 H Neut % (Auto) Not Reportable Lymph % (Auto) Not Reportable [place] % (Auto) Not Reportable Eos % (Auto) Not Reportable Baso % (Auto) Not Reportable Lymph # (Auto) Not Reportable [place] # (Auto) Not Reportable Baso # (Auto) Not Reportable Total Counted 100 Seg Neutrophils % 76.0 H Band Neutrophils % 5.0 Lymphocytes % (Manual) 14.0 L Monocytes % (Manual) 5.0 Neutrophils # (Manual) 74011 H RBC Morphology Normal morphology Sodium 138 Potassium 3.3 L Chloride 109 H Carbon Dioxide 19 L BUN 23 H Creatinine 0.95 Estimated GFR > 60 BUN/Creatinine Ratio 24.2 H Glucose 93 Calcium 9.1 Magnesium 1.4 L Total Bilirubin 0.6 AST 74 H ALT 87 H Alkaline Phosphatase 129 H Total Protein 7.0 Albumin 2.8 L Globulin 4.2 H Albumin/Globulin Ratio 0.7 L TSH 1.28 [facility] Medical History Anxiety Asthma Breast cancer Controlled type 2 diabetes mellitus without complication Hypertension Hypothyroidism Neurogenic bladder Osteomyelitis Varicose vein of leg Surgical History Anesthesia Breast cancer Encounter for debridement of skin (~2012) History of back surgery History of hip surgery Status post appendectomy Status post cholecystectomy Status post hysterectomy Family History Father Hypertension Mother Hypertension OA (osteoarthritis) Social History marital status: household members: spouse Smoking Status: Never smoker alcohol intake: never substance use type: does not use Assessment & Plan Assessment and plan (1) Sepsis: Status: Acute (2) Urinary tract infection: Status: Acute Plan Sepsis patient with sepsis diagnosis with elevated lactic acid white blood cell count significant weakness mild increase of creatinine to 1.15 which baseline is 0.5. Patient was admitted with IV antibiotics fluids did not require pressure support. Presumed infectious source is urinary tract infection. She is covered with broad-spectrum antibiotics and rude based on recent culture of urine she is on appropriate coverage this time. IV fluids were stopped yesterday some mild electrolyte abnormalites with normal plan improving trending down white blood cell count and temperature Urinary tract infection causing significant weakness and falls.? Patient with urinary tract infection. Urine grew out Klebsiella pneumonia blood cultures negative continue with ceftriaxone for treatment. Will transition to oral medication. Atrial fibrillation with rapid ventricular response blood pressure pulse is better. Patient has been placed on anticoagulation. Echocardiogram which we do shows ejection fraction of 50-55% with moderate to severe tricuspid regurgitation. Patient tolerated blood thinner well at this point. Mild acute kidney injury. Patient due to sepsis had mild acute kidney injury this is improved. Patient has had electrolyte abnormalities with it including hypokalemia hypomagnesia. These will be replaced while she is here in the hospital IV fluids have been stopped. Type 2 diabetes non-insulin dependent.? Patient will have monitoring of her blood sugars here in the hospital.? Restarted metformin today blood sugars look okay. Hypertension.? Continue to monitor blood pressure.? It is stable at this point will make adjustments based on the addition of her new beta-tarah therapy. DVT prophylaxis on full anticoagulation with Eliquis. Disposition and plan. Continue 24 more hours of antibiotic physical therapy consultation. Anticipate discharge home with and home health. In the next 24-48 hours. Time Spent With Patient Critical Care time: I spent a total of [] minutes of critical care time on this patient's care today; this time is exclusive of procedural time.
--- NOTE | 2022-02-19 13:24 | CM.DPC ---
DCP SNF Planning Per MD, pt making some progress with IV-Abx and to work with PT today. Per PT, pt below baseline although she typically is mostly w/c bound is able to walk short distances with walker to use the bathroom and then mostly uses manual w/c and pt now 2PA with transfers and recommending SNF. KIESHA also met with Romel Hubbard from [employer] and he states he received a referral on pt and spouse from EMS due to concern for living situation and need for additional community resources and Romel states he plans to meet with pt and spouse and has not seen their home yet but is aware that Medicaid application is in the process and he plans to follow up on this and with [facility]. SW met bedside with pt and spouse and explained role and they confirm pt has a hx of SNF but at least 7 years ago. Pt and spouse confirm that they feel SNF needed to get pt back to her baseline of independent with DME to use the bathroom and transfer. SW provided the SNF Choice List and both in agreement that they would want to stay in [place] due to location and agreeable with SNF referral to [facility]. Spouse also inquired about pt remaining in the hospital until safe for d/c home and SW discussed the need to remain at Hospital level of care and if stable for lower level of care like SNF then MD would need to follow Medicare guidelines for when pt medically stable for discharge even if not yet safe for d/c to home. Spouse and pt acknowledge understanding and agreeable to plan A) home with HH if pt makes enough progress to d/c home and B) SNF before safe return home. Spouse and pt deny any hx of HH for themselves but think they used HH for elderly parent a few years ago. SW called [facility] and made new referral and requested review. PASRR done in anticipation of SNF. Plan: SW to follow for [facility] review and pt progress with PT towards confirming plan of SNF at d/c in the next day or two when medically stable. DIVINE Ruiz
[2022-02-19] MEDS: guaiFENesin Solution 100 MG/5 ML UDC PO (18:30)
[2022-02-19] MEDS: MONTELUKAST 10 MG TABLET PO (21:35)
[2022-02-19] MEDS: SODIUM CHLORIDE 0.9% FLUSH 10 ML IV (21:36)
[2022-02-20] MEDS: LORazepam 0.5 MG TABLET PO ×2 (00:33→12:29)
[2022-02-20 05:02] VITALS: BP 122/78; PULSE 102; RESP 18; TEMP 36.6; O2SAT 94
[2022-02-20] MEDS: ACETAMINOPHEN 325 MG TABLET 650 MG PO ×2 (05:44→11:18)
[2022-02-20] MEDS: LEVOTHYROXINE 100 MCG TABLET PO (05:45)
[2022-02-20] MEDS: PANTOPRAZOLE DR 40 MG TABLET PO (05:45)
[2022-02-20 06:09] LABS: BUN Creatinine Ratio 21.7 (6-22); Blood Urea Nitrogen 20 mg/dL (7-17); Calcium 9.5 mg/dL (8.4-10.2); Carbon Dioxide 24 mmol/L (22-32); Chloride 105 mmol/L (98-107); Estimated Glomerular Filt Rate > 60 mL/min (>60); Glucose 120 mg/dL (80-110); HEMOLYSIS < 15 (0-50); Magnesium 1.4 mg/dL (1.6-2.3); Potassium 3.6 mmol/L (3.4-5.1); Sodium 137 mmol/L (137-145)
[2022-02-20 06:28] LABS: Hematocrit 31.9 % (36-46); Hemoglobin 10.7 g/dL (12.0-16.0); Mean Corpuscular HGB Conc 33.6 % (30-36); Mean Corpuscular Hemoglobin 29.4 PG (26-34); Mean Corpuscular Volume 87.3 fL (80-100); Platelet Count 516 X10^3/uL (150-400); Red Blood Cell Count 3.65 X10^6/uL (4.0-5.2); Red Cell Distribution Width 13.5 % (11.6-14.8)
[2022-02-20 06:29] LABS: Add Manual Diff / Slide Review YES
[2022-02-20 07:18] LABS: Neutrophils Absolute Manual 9880 /uL (3000-5900); Total Cells Counted 100
[2022-02-20 07:19] LABS: RBC Morphology Normal Morphology
[2022-02-20 07:37] VITALS: BP 124/69; PULSE 100; RESP 20; TEMP 36.7; O2SAT 91
[2022-02-20 08:00] VITALS: O2SAT 91
[2022-02-20] MEDS: CITALOPRAM 10 MG TABLET 20 MG PO (08:31)
[2022-02-20] MEDS: APIXABAN 5 MG TABLET PO (08:32)
[2022-02-20] MEDS: METOPROLOL IR 25 MG TABLET 50 MG PO (08:32)
[2022-02-20] MEDS: NYSTATIN POWDER 15GM 1 APPLIC TOP (08:36)
[2022-02-20] MEDS: SODIUM CHLORIDE 0.9% FLUSH 10 ML IV (08:38)
--- NOTE | 2022-02-20 09:45 | P.PN_ITS ---
Subjective Subjective Date Patient Seen: 02/20/22 Time Patient Seen: 09:45 Interval history: Patient seen and evaluated this morning at bedside with her. Has been has lots of questions and he is very anxious about her care he is concerned that she may have to go to a residential and does not want her to go there. He says he would prefer taking care of her home with home health and physical therapy. Patient did not sleep well last night she is sleeping this morning but has questions about her ongoing cough. Reviewed laboratory tests this morning white blood cell counts better O2 sats are normal she is afebrile. Hemoglobin hematocrit a little bit low. Electrolytes look good this morning. Blood glucose at 1:20 a.m.. Exam Vital Signs (past 8 hours): - 02/20/22 05:02 02/20/22 07:37 02/20/22 08:00 Temperature 97.9 F 98.0 F Pulse Rate 102 H 100 H Respiratory Rate 18 20 Blood Pressure 122/78 124/69 Pulse Oximetry 94 91 91 Oxygen Delivery Method Room Air Oxygen Flow Rate 0 0 Oxygen Delivery Method Room Air Oxygen Flow Rate 0 Narrative Exam Narrative: Gen.: Alert no apparent distress concerned about her cough HEENT: Pupils equal round and reactive Cardio: S1-S2 irregular rhythm Respiratory: Normal respiratory effort Abdomen: Soft nontender Extremities: No significant lower extremity edema Neurologic: Grossly intact. Objective Labs Result Diagrams: 02/20/22 05:34 02/20/22 05:34 Labs: Laboratory Results - last 24 hr 02/20/22 02/20/22 05:34 05:34 WBC 13.0 H RBC 3.65 L Hgb 10.7 L Hct 31.9 L MCV 87.3 MCH 29.4 MCHC 33.6 RDW 13.5 Plt Count 516 H Neut % (Auto) Not Reportable Lymph % (Auto) Not Reportable [place] % (Auto) Not Reportable Eos % (Auto) Not Reportable Baso % (Auto) Not Reportable Lymph # (Auto) Not Reportable [place] # (Auto) Not Reportable Baso # (Auto) Not Reportable Total Counted 100 Seg Neutrophils % 70.0 Band Neutrophils % 6.0 Lymphocytes % (Manual) 13.0 L Monocytes % (Manual) 9.0 Eosinophils % (Manual) 2.0 Neutrophils # (Manual) 9880 H RBC Morphology Normal morphology Sodium 137 Potassium 3.6 Chloride 105 Carbon Dioxide 24 BUN 20 H Creatinine 0.92 Estimated GFR > 60 BUN/Creatinine Ratio 21.7 Glucose 120 H Calcium 9.5 Magnesium 1.4 L PFSH Medical History Anxiety Asthma Breast cancer Controlled type 2 diabetes mellitus without complication Hypertension Hypothyroidism Neurogenic bladder Osteomyelitis Varicose vein of leg Surgical History Anesthesia Breast cancer Encounter for debridement of skin (~2012) History of back surgery History of hip surgery Status post appendectomy Status post cholecystectomy Status post hysterectomy Family History Father Hypertension Mother Hypertension OA (osteoarthritis) Social History marital status: household members: spouse Smoking Status: Never smoker alcohol intake: never substance use type: does not use Assessment & Plan Assessment and plan (1) Sepsis: Status: Acute (2) Urinary tract infection: Status: Acute Plan Sepsis. Due to a urinary tract infection resolved. Atrial fibrillation with rapid ventricular response normal echocardiogram continue with Eliquis. Heart rate still in the 100s. Increase metoprolol dosing to 75 mg b.i.d. of extended relates could continue with Eliquis Urinary tract infection Klebsiella pneumonia. Patient continued to be treated with ceftriaxone IV transition to oral medication tomorrow. Acute kidney injury due to underlying sepsis and infection patient's kidney function has returned back to normal with IV fluids. Electrolytes are still being replaced with potassium and magnesium this included hypokalemia and hypomagnesia Type 2 diabetes non-insulin dependent continue to monitor blood sugars metformin is provided Hypertension blood pressure is well controlled Cough with some swallowing difficulties speech evaluation provided with nutritional recommendations continue with anti allergy medication and cough suppressant Obesity patient with morbid obesity with BMI 42 this is inhibiting her ability to walk and causing significant weakness and causing challenges with physical therapy will continue to work with the patient Disposition plan discharge home tomorrow with home health and home physical therapy Time Spent With Patient Critical Care time: I spent a total of [] minutes of critical care time on this patient's care today; this time is exclusive of procedural time.
[2022-02-20 11:17] VITALS: PULSE 94
[2022-02-20] MEDS: METOPROLOL ER 25 MG TABLET 75 MG PO (11:17)
[2022-02-20] MEDS: cefTRIAXone 2,000 MG in SODIUM CHLORIDE 0.9% 100 ML 200 MG IV (11:24)
[2022-02-20] MEDS: MAGNESIUM CHLORIDE 64 MG TABLET 128 MG PO (11:25)
--- NOTE | 2022-02-20 11:39 | CM.DPC ---
DCP Cont: Spoke with pt and pt spouse this morning regarding discharge plan. Pt and spouse verbalized the hesitancy of going to SNF. DCP verbalized the importance of rehab to get stronger in mobilization. After much discussion and answering questions, pt and and spouse agreeable to [facility]. DCP spoke with Lizett @ [facility] and confirmed that they would be able to accept pt today @ 1300. COVID swab ordered. Once all paperwork is completed, will fax over to [facility]. Viki Montgomery RN/MARCOSP
--- NOTE | 2022-02-20 11:40 | PT.IPTN ---
Current Diagnoses Sepsis, unspecified organism (02/17/22) Morbid (severe) obesity due to excess calories (02/17/22) Neuromuscular dysfunction of bladder, unspecified (02/17/22) Urinary tract infection, site not specified (02/17/22) Physical Therapy Treatment Note M2 PT-IP Current Condition Start: 02/19/22 13:14 Freq: NEEDED Status: Active Protocol: Document 02/19/22 10:15 AB (Rec: 02/19/22 13:32 AB [id number]) Physical Therapy Current Condition Current Condition Evaluation Date 02/19/22 Treatment Diagnosis UTI; difficulty in walking Onset Date 02/17/22 M3 PT-IP Subjective Start: 02/19/22 13:14 Freq: NEEDED Status: Active Protocol: Document 02/20/22 11:04 KS (Rec: 02/20/22 12:33 KS [id number]) Subjective Physical Therapy Visit Type Type Treatment Note Visit Start Time 11:04 Visit Stop Time 11:40 Total Visit Minutes 36 Notes PT aide present for 2PA. Number of ACCOUNT SERVICES MANAGER Visits 1 Physical Therapy Visit Comments Patient Comments agreeable to do PT M4 PT-IP Mobility and Gait Start: 02/19/22 13:14 Freq: NEEDED Status: Active Protocol: Document 02/20/22 11:04 KS (Rec: 02/20/22 12:33 KS [id number]) PT-Bed Mobility Assessment Supine to Sit Supine to Sit Maximum Assistance,Total Assistance,2 Person Assistance ,Head of Bed Elevated,Bedrails Scooting Scooting to Edge of Bed Dependent PT-Transfer Assessment Sit to and From Stand Sit to and from Stand Moderate Assistance,2 Person Assistance,Use of Upper Extremities Equipment Transfer Assistive Device Gait Belt,Standard Walker Orthotic/Prosthetic Devices or Brace: No Transfers Transfer Destination Bed Transfer Technique sit<>stand Transfer Ability Level of Assist Maximum Assistance,2 Person Assistance,Use of Upper Extremities Comments Mobility Comments Pt in bed upon arrival w/ in room. Agreeable to mobilize but fearful due to pain and weakness. Max A x2 for sup<>sit and dependent for scooting EOB. Pt able to complete sit<>stand w/ SW Mod A x2 w/ cues for hand placement and sequencing. She stood ~20 seconds before taking seated rest break. Pt agreeable to stand again and was able to pivot feet laterally towards HOB w/ heavy WB through BUE and Mod A x2 w / SW mgmt. Pt unable to perform third stand due to fatigue and lightheadedness, required 2PA for repositioning in bed. Gait Assessment Comments Gait Comments ~1 ft lateral pivot BLE w/ SW towards HOB. Unable to elevate feet. PT-Balance Assessment Sitting Balance and Reactions Static Sitting Balance Ability Fair Dynamic Sitting Balance Ability Poor Standing Balance and Reactions Static Standing Balance Ability Fair Dynamic Standing Balance Ability Poor Device Used FWW M5 PT-IP Objective Assessments Start: 02/19/22 13:14 Freq: NEEDED Status: Active Protocol: Document 02/19/22 10:15 AB (Rec: 02/19/22 13:32 AB [id number]) Orientation Orientation/Cognition Level of Alertness Alert Orientation Name,Place,Situation Safety Awareness Decreased Safety Awareness Memory Description Short Term Impaired Gross Range of Motion Lower Extremity ROM Impairments (+) R knee crepitus Strength Lower Extremity Strength Assessment Bilaterally Impaired Hip 3-/5 Knee 3-/5 Muscle Tone Muscle Tone WNL Yes M6 PT-IP Treatment Start: 02/19/22 13:14 Freq: NEEDED Status: Active Protocol: Document 02/20/22 11:04 KS (Rec: 02/20/22 12:33 KS [id number]) Physical Therapy Treatment Education Education Provided Safety M7 PT-IP Assessment and Plan Start: 02/19/22 13:14 Freq: NEEDED Status: Active Protocol: Document 02/20/22 11:04 KS (Rec: 02/20/22 12:33 KS [id number]) PT Summary Assessment and Plan Potential Rehabilitation Potential Fair Summary Impairments Pain,ROM,Strength,Balance, Coordination,Sensation,Tone, Cognition,Bed Mobility, Transfers,Gait,Activity Tolerance Progress Towards Goals Slow Progress due to Pain,Slow Progress due to Activity Tolerance Assessment Summary Pt able to stand twice w/ Mod A x2 today, but still requiring Max A x2 for bed mobility. She was encouraged by her progress w/ standing and ability to pivot feet but limited by pain, weakness, and low activity tolerance. She will require SNF to improve strength and functional mobility independence. Goals Bed Mobility Goal Minimal Assistance Transfer Goal Minimal Assistance,Front Wheeled Walker Gait Goal Minimal Assistance,Front Wheel Walker Gait Distance 10 Other Goals improve bed mobility, transfers and ambulation using FWW 20 ft SBA Days to Meet Goals 10 Frequency of Treatment Frequency Of Treatment Once a Day Treatment Plan Physical Therapy Treatment Plan Bed Mobility Training,Transfer Training,Gait Training, Therapeutic Exercise,Balance Retraining,Discharge Planning, Hot or Cold Pack,Neuromuscular Re-ed,Coordination Retraining ,Manual Therapy Precautions Other Precautions falls Recommendations To Nursing Amount of Assist Needed Mechanical Lift Discharge Recommendations PT Discharge Recommendations SNF Rehab Transportation Needs at Discharge Wheelchair/Cabulance
[2022-02-20 12:10] VITALS: PULSE 99
[2022-02-20 12:29] LABS: COVID19 -Nasal RAPID Negative (Negative)
--- NOTE | 2022-02-20 12:39 | P.DS_ITS ---
History of Present Illness History of Present Illness Chief complaint: Weakness Discharge Providers Provider Date of admission: 02/17/22 13:17 Discharge Date: 02/20/22 Primary care physician: Mumtaz Groves MD Consults: 02/18/22 07:00 Consult to Inpatient Wound Care Nurse Routine Comment: Posterior left thigh, allevyn placed 02/17 Reason for consultation: Stage 2 pressure ulcer Has provider been notified: No 02/18/22 17:58 Consult to Dietitian, Adult Routine Comment: food very soft, Assess as high risk. Reason For Exam: Pt reports she is on a dysphagia type diet, needs 02/18/22 18:00 Consult to Physical Therapy Evaluate & Treat Comment: Physician Instructions: Evaluate and Treat Discharge provider: Mumtaz Groves MD Summary Hospital Course Discharge Diagnosis: Sepsis due to urinary tract infection. Patient had elevated lactate tachycardia significantly elevated white blood cell count. She was admitted the hospital given IV antibiotics IV fluids and appropriate treatment. Patient's urine grew out Klebsiella pneumonia. She is placed on 3rd generation cephalosporin IV. Her white blood cell count went from 20/5 1000 down to 14,000. Patient had improvement of significant weakness white blood cell count vital signs during her hospital stay. She will be discharged home with oral cephalosporin for 3 additional days New onset atrial fibrillation with rapid ventricular response. Patient had new onset atrial fibrillation had an echocardiogram which showed preserved ejection fraction tricuspid regurgitation moderate to severe with atrial enlargement. She was placed on IV metoprolol oral metoprolol and then extended release metoprolol at 75 mg twice a day. Patient had improvement of heart rate but still little bit tachycardic at the time of discharge. She will probably need further adjustment of her beta-tarah. Patient agreed to be on anticoagulation with Eliquis. Type 2 diabetes. Patient had blood sugars monitored during the hospital she was placed back on her home metformin dose and her blood sugars were well during the hospital stay. Electrolyte abnormalities patient had hypokalemia and hypomagnesia. She had mild acute kidney injury with the creatinine of 1.15 above her baseline of 0.4. This was resolved with fluids. Hypertension. Patient was placed back on her antihypertensive during the hospital stay and tolerated this without any difficulty. Hypothyroidism. Patient was continued on her thyroid replacement her thyroid was checked was in a normal range Discharge plan [facility] and then home Exam Vital Signs (past 8 hours): - 02/20/22 05:02 02/20/22 07:37 02/20/22 08:00 Temperature 97.9 F 98.0 F Pulse Rate 102 H 100 H Respiratory Rate 18 20 Blood Pressure 122/78 124/69 Pulse Oximetry 94 91 91 Oxygen Delivery Method Room Air Oxygen Flow Rate 0 0 02/20/22 11:17 02/20/22 12:10 Temperature Pulse Rate 94 H 99 H Respiratory Rate Blood Pressure Pulse Oximetry Oxygen Delivery Method Oxygen Flow Rate Oxygen Delivery Method Room Air Oxygen Flow Rate 0 Objective Labs Result Diagrams: 02/20/22 05:34 02/20/22 05:34 Labs: Laboratory Results - last 24 hr 02/20/22 02/20/22 02/20/22 05:34 05:34 11:53 WBC 13.0 H RBC 3.65 L Hgb 10.7 L Hct 31.9 L MCV 87.3 MCH 29.4 MCHC 33.6 RDW 13.5 Plt Count 516 H Neut % (Auto) Not Reportable Lymph % (Auto) Not Reportable [place] % (Auto) Not Reportable Eos % (Auto) Not Reportable Baso % (Auto) Not Reportable Lymph # (Auto) Not Reportable [place] # (Auto) Not Reportable Baso # (Auto) Not Reportable Total Counted 100 Seg Neutrophils % 70.0 Band Neutrophils % 6.0 Lymphocytes % (Manual) 13.0 L Monocytes % (Manual) 9.0 Eosinophils % (Manual) 2.0 Neutrophils # (Manual) 9880 H RBC Morphology Normal morphology Sodium 137 Potassium 3.6 Chloride 105 Carbon Dioxide 24 BUN 20 H Creatinine 0.92 Estimated GFR > 60 BUN/Creatinine Ratio 21.7 Glucose 120 H Calcium 9.5 Magnesium 1.4 L SARS-CoV-2 (PCR) Negative PFSH Medical History Anxiety Asthma Breast cancer Controlled type 2 diabetes mellitus without complication Hypertension Hypothyroidism Neurogenic bladder Osteomyelitis Varicose vein of leg Surgical History Anesthesia Breast cancer Encounter for debridement of skin (~2012) History of back surgery History of hip surgery Status post appendectomy Status post cholecystectomy Status post hysterectomy Family History Father Hypertension Mother Hypertension OA (osteoarthritis) Social History marital status: household members: spouse Smoking Status: Never smoker alcohol intake: never substance use type: does not use Discharge Plan Discharge Plan Patient Disposition: SNF Transfer to: [facility] Discharge orders & Medications Prescriptions: New metoprolol succinate 25 mg Tablet Extended Release 24 Hr 75 mg PO BID Qty: 30 0RF cefdinir 300 mg capsule 300 mg PO BID Qty: 6 0RF Eliquis 5 mg Tablet 5 mg PO BID Qty: 30 0RF Continued CALCIUM CARBONATE/VITAMIN D3 (Calcium 500 + D Tablet) 1 tab PO Q DAY Qty: 0 omeprazole 40 MG capsule,delayed release(DR/EC) 40 mg OR BID Qty: 0 amlodipine 10 mg tablet 10 mg PO QDAY Qty: 90 3RF losartan 50 mg tablet See Rx Instructions .ROUTE .COMPLEX Qty: 90 2RF Dose Instruction: TAKE 1 TABLET DAILY Rx Instructions: TAKE 1 TABLET DAILY lorazepam 1 mg tablet 0.5 mg PO BEDTIME PRN (Reason: anxiety) Qty: 30 0RF citalopram 20 mg tablet See Rx Instructions .ROUTE .COMPLEX Qty: 90 3RF Dose Instruction: TAKE 1 TABLET DAILY Rx Instructions: TAKE 1 TABLET DAILY levothyroxine [Synthroid] 100 mcg tablet 100 mcg PO QAM Qty: 30 0RF montelukast 10 mg tablet See Rx Instructions .ROUTE .COMPLEX Qty: 90 1RF Dose Instruction: TAKE 1 TABLET DAILY Rx Instructions: TAKE 1 TABLET DAILY metformin 500 mg tablet 500 mg PO DAILY Qty: 90 0RF Rx Instructions: TAKE 1 TABLET ONCE DAILY fluticasone propionate [Flovent HFA] 220 mcg/actuation Hfa Aerosol Inhaler 2 puff INHALATION DAILY PRN (Reason: Shortness Of Breath) Discontinued Fish Oil (#FISH OIL) 1 iu PO Q DAY Qty: 0 potassium chloride 10 mEq tablet,ER particles/crystals 20 meq PO BIDCC Qty: 360 2RF Rx Instructions: Take 2 tabs by mouth twice daily. chlorthalidone 50 mg tablet See Rx Instructions .ROUTE .COMPLEX Qty: 90 3RF Dose Instruction: TAKE 1 TABLET DAILY Rx Instructions: TAKE 1 TABLET DAILY Follow up/Referrals: Mumtaz Groves MD [Primary Care Provider] - Discharge Data Primary Care Provider: Mumtaz Groves
--- NOTE | 2022-02-20 14:41 | PC.NURSE ---
Day shift: Paperwork signed and all questions answered. Pt's SOn in room for the teachings. SUMA and Aquacel remain CDI. Pt steady on feet with FWW. DIOGO Melton called and she will send in script for PO Ashish. LEftr unit at approx 1400 via WC. ELYSSA Iyer took her out.
--- NOTE | 2022-02-20 14:45 | PC.NURSE ---
Day shift: Pt left unit at approx 1415 aand is going to SNF. Spouse in room and knows plan for Pt. Pt did get her entire dose of IV antibiotics prior to d/c. Both the Pt and her Spouse haviung anxiety about the discharge today. Dr Groves aware and in his MD note.
== END 2022-02-20 14:48 | DRG 698 ==
LOC: ED 13:12 → AC 13:18
PROVIDERS: Admitting Provider Internal Medicine; Emergency Provider Family Medicine Addiction Medicine; PCP Family Medicine; Referring Provider Family Medicine Addiction Medicine; Visit Provider Family Medicine
DX: T83.518A Infection and inflammatory reaction due to other urinary catheter, initial encounter (principal); A41.9 Sepsis, unspecified organism; N39.0 Urinary tract infection, site not specified; N17.9 Acute kidney failure, unspecified; I48.91 Unspecified atrial fibrillation; E87.6 Hypokalemia; E66.01 Morbid (severe) obesity due to excess calories; R29.6 Repeated falls; E03.9 Hypothyroidism, unspecified; I10 Essential (primary) hypertension; E11.9 Type 2 diabetes mellitus without complications; B96.1 Klebsiella pneumoniae [K. pneumoniae] as the cause of diseases classified elsewhere; E83.42 Hypomagnesemia; F41.9 Anxiety disorder, unspecified; Z68.22 Body mass index [BMI] 22.0-22.9, adult; Z20.822 Contact with and (suspected) exposure to COVID-19; Z79.84 Long term (current) use of oral hypoglycemic drugs
CPT/HCPCS: 36415; 51701; 71045; 80048; 80053; 81001; 82962; 83036; 83605; 83690; 83735; 84145; 84443; 84484; 85007; 85025; 85610; 85730; 87040; 87077; 87086; 87186; 87635; 93005; 93010; 93306; 96365; 96375; 97162; 97530; 99223; 99233; 99284; C9803; J0696; J1815; J1885

== ENCOUNTER → 2022-04-01 10:10 | Outpatient (CLI) | payer MEDICARE, OTHER, SELFPAY ==
[2022-02-17 13:23] VITALS: BMI 40.9
[2022-04-01 10:42] LABS: Appearance Urine UA CLOUDY; Bilirubin Urine UA NEGATIVE (NEGATIVE); Color Urine UA ORANGE; Glucose Urine UA NEGATIVE (Negative); Ketones Urine UA NEGATIVE (NEGATIVE); Leukocyte Esterase Urine UA 3+ (NEGATIVE); Nitrite Urine UA NEGATIVE (Negative); Occult Blood Urine UA 3+ (Negative); Protein Urine UA 2+ (Negative); Urobilinogen Urine UA 0.2 E.U./dL (0.2)
[2022-04-01 11:02] LABS: Bacteria Urine None Seen; Culture Indicated Urine Specimen Cultured; RBC Urine >100/HPF (0-5/HPF); Squamous Epithelial Cell Urine 5-10 /HPF (0-5/HPF); WBC Urine >100/HPF (0-5/HPF)
== END ==
PROVIDERS: PCP Family Medicine; Referring Provider Family Medicine; Visit Provider Family Medicine
DX: R30.0 Dysuria (principal)
CPT/HCPCS: 81003; 81015; 87086

== ENCOUNTER → 2023-02-03 09:25 | Outpatient (CLI) | payer MEDICARE, OTHER, SELFPAY ==
[2022-02-17 13:23] VITALS: BMI 40.9
[2023-02-03 10:09] LABS: Add Manual Diff / Slide Review NO; Basophils Absolute Auto 100 /uL (0-100); Basophils Percent Auto 1.1 % (0-2); Eosinophils Absolute Auto 900 /uL (0-450); Eosinophils Percent Auto 10.3 % (2-4); Hematocrit 35.4 % (36-46); Hemoglobin 11.7 g/dL (12.0-16.0); Lymphocytes Absolute Auto 1500 /uL (1100-4500); Lymphocytes Percent Auto 16.6 % (25-40); Mean Corpuscular HGB Conc 33.1 % (30-36); Mean Corpuscular Hemoglobin 29.3 PG (26-34); Mean Corpuscular Volume 88.5 fL (80-100); Monocytes Absolute Auto 400 /uL (0-900); Neutrophils Absolute Auto 6000 /uL (1500-7000); Platelet Count 445 X10^3/uL (150-400); Red Cell Distribution Width 14.4 % (11.6-14.8)
[2023-02-03 10:11] LABS: Hemoglobin A1C% w Est Avg Glu 5.3 % (4.0-6.0)
[2023-02-03 12:06] LABS: Alanine Aminotransferase 15 IU/L (<35); Albumin 3.9 g/dL (3.5-5.0); Albumin Globulin Ratio 0.9 (1.0-2.8); Alkaline Phosphatase 91 U/L (38-126); Aspartate Aminotransferase 21 IU/L (14-36); BUN Creatinine Ratio 25.4 (6-22); Bilirubin Total 0.3 mg/dL (0.2-1.3); Blood Urea Nitrogen 30 mg/dL (7-17); Calcium 10.8 mg/dL (8.4-10.2); Carbon Dioxide 23 mmol/L (22-32); Chloride 107 mmol/L (98-107); Cholesterol 195 mg/dL (140-199); Estimated Glomerular Filt Rate 48 mL/min (>60); Globulin 4.5 g/dL (1.7-4.1); Glucose 97 mg/dL (80-110); HDL Cholesterol 42 mg/dL (40-60); HEMOLYSIS < 15 (0-50); LDL Cholesterol Calculated 88 mg/dL (<100); Sodium 138 mmol/L (137-145); Total Protein 8.4 g/dL (6.3-8.2); Triglycerides 326 mg/dL (35-150)
[2023-02-03 12:07] LABS: Magnesium 1.8 mg/dL (1.6-2.3)
[2023-02-03 12:12] LABS: Rheumatoid Factor < 8.6 IU/mL (<12.0)
[2023-02-03 12:38] LABS: TSH w/ Reflex to FT4 2.45 uIU/mL (0.47-4.68)
== END ==
PROVIDERS: PCP Family Medicine; Referring Provider Nurse Practitioner Family; Visit Provider Nurse Practitioner Family
DX: I48.0 Paroxysmal atrial fibrillation (principal); E11.9 Type 2 diabetes mellitus without complications; I10 Essential (primary) hypertension; I27.81 Cor pulmonale (chronic); E03.9 Hypothyroidism, unspecified; E66.01 Morbid (severe) obesity due to excess calories; Z13.220 Encounter for screening for lipoid disorders; E87.6 Hypokalemia
CPT/HCPCS: 36415; 80053; 80061; 83036; 83735; 84443; 85025; 86430

== ENCOUNTER → 2023-08-06 14:21 | Outpatient (CLI) | payer MEDICARE, OTHER, SELFPAY ==
[2022-02-17 13:23] VITALS: BMI 40.9
[2023-08-06 16:05] LABS: Hemoglobin A1C% w Est Avg Glu 5.3 % (4.0-6.0)
[2023-08-06 16:54] LABS: Alanine Aminotransferase 15 IU/L (<35); Albumin 4.1 g/dL (3.5-5.0); Alkaline Phosphatase 116 U/L (38-126); Aspartate Aminotransferase 20 IU/L (14-36); BUN Creatinine Ratio 24.6 (6-22); Bilirubin Total 0.5 mg/dL (0.2-1.3); Blood Urea Nitrogen 28 mg/dL (7-17); Calcium 11.1 mg/dL (8.4-10.2); Carbon Dioxide 24 mmol/L (22-32); Chloride 102 mmol/L (98-107); Estimated Glomerular Filt Rate 50 mL/min (>60); Globulin 4.2 g/dL (1.7-4.1); Glucose 96 mg/dL (80-110); HEMOLYSIS < 15 (0-50); Potassium 4.6 mmol/L (3.4-5.1); Sodium 138 mmol/L (137-145); Total Protein 8.3 g/dL (6.3-8.2)
== END ==
PROVIDERS: PCP Family Medicine; Referring Provider Family Medicine; Visit Provider Family Medicine
DX: E11.9 Type 2 diabetes mellitus without complications (principal); E66.01 Morbid (severe) obesity due to excess calories; I10 Essential (primary) hypertension; E03.9 Hypothyroidism, unspecified
CPT/HCPCS: 36415; 80053; 83036

== ENCOUNTER → 2023-12-04 18:29 | Outpatient (CLI) | payer MEDICARE, OTHER, SELFPAY ==
[2022-02-17 13:23] VITALS: BMI 40.9
--- NOTE | 2023-12-04 18:31 | DI.RAD.S_ITS ---
PROCEDURE: XR CHEST 2V INDICATIONS: Cough TECHNIQUE: 2 views of the chest were acquired. COMPARISON: [facility], CR, XR CHEST 1V, 02/17/2022, 10:17. FINDINGS: Surgical changes and devices: None. Lungs and pleura: There is diffuse interstitial prominence throughout both lungs. No focal airspace opacities. No pleural effusion or pneumothorax. Mediastinum: Mediastinal contours are normal. Heart size is normal. Bones and chest wall: No suspicious bony abnormalities. Soft tissues appear unremarkable. IMPRESSION: Diffuse interstitial prominence which may be associated with fluid overload or viral pneumonia. Dictated by: Awa Case M.D. on 12/05/2023 at 17:34 Approved by: Awa Case M.D. on 12/05/2023 at 17:35
== END ==
PROVIDERS: PCP Family Medicine; Referring Provider Nurse Practitioner Family; Visit Provider Nurse Practitioner Family
DX: R05.9 Cough, unspecified (principal)
CPT/HCPCS: 71046

== ENCOUNTER 2023-12-06 17:27 | Emergency (ER) | payer MEDICARE, OTHER, SELFPAY ==
[2022-02-17 13:23] VITALS: BMI 40.9
[2023-12-06] VITALS (7 sets, daily range): BP systolic 125–142; BP diastolic 62–100; PULSE 98–114; RESP 14–33; TEMP 36.6–37; O2SAT 96–97; BMI 25.4
--- NOTE | 2023-12-06 17:44 | DI.RAD.S_ITS ---
PROCEDURE: XR CHEST 1V INDICATIONS: suspected sepsis TECHNIQUE: One view of the chest was acquired. COMPARISON: [facility], CR, XR CHEST 2V, 12/04/2023, 18:37. FINDINGS: Surgical changes and devices: None. Lungs and pleura: Lungs are clear. No pleural effusions or pneumothorax. Mediastinum: Mediastinal contours appear normal. Heart size is normal. Bones and chest wall: No suspicious bony lesions. Overlying soft tissues appear unremarkable. IMPRESSION: No acute cardiopulmonary abnormality is seen. Approved by: Smiley Frausto M.D.,Ph.D. on 12/06/2023 at 17:48
--- NOTE | 2023-12-06 18:09 | EKG_ITS ---
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
[2023-12-06 18:15] LABS: Add Manual Diff / Slide Review NO; Basophils Absolute Auto 200 /uL (0-100); Basophils Percent Auto 1.4 % (0-2); Eosinophils Absolute Auto 500 /uL (0-450); Eosinophils Percent Auto 3.6 % (2-4); Hematocrit 37.9 % (36-46); Hemoglobin 12.3 g/dL (12.0-16.0); Lymphocytes Absolute Auto 2300 /uL (1100-4500); Lymphocytes Percent Auto 16.9 % (25-40); Mean Corpuscular HGB Conc 32.5 % (30-36); Monocytes Absolute Auto 800 /uL (0-900); Neutrophils Absolute Auto 9800 /uL (1500-7000); Neutrophils Percent Auto 72.1 % (50-75); Platelet Count 607 X10^3/uL (150-400); Red Blood Cell Count 4.41 X10^6/uL (4.0-5.2); Red Cell Distribution Width 14.4 % (11.6-14.8); White Blood Cell Count 13.6 X10^3/uL (4.5-11.0)
--- NOTE | 2023-12-06 18:15 | PC.NURSE ---
Pt came to the emergency dept today because she has been experiencing ongoing worsening weakness and cough. Pt seen in [facility] and was prescribed tessalon perles. Pt states that she is not getting better and actually feeling more weak and tired. Pt has difficulty transferring from wheelchair to bed and required 2 person assist. A&Ox4.
--- NOTE | 2023-12-06 18:27 | ED.WEAKNESS ---
HPI - Weakness General Chief complaint: Weakness Stated complaint: called by [facility], fluid on lungs Time Seen by Provider: 12/06/23 17:50 Source: patient and family Mode of arrival: Wheelchair History of Present Illness HPI Narrative: 77-year-old female with history of AFib on Eliquis, diabetes, hypertension, depression presents for 2 weeks of nonproductive cough. Patient states that she went to the walk-in clinic on 12/03 and she was discharged with cough medications. She returned to the emergency department today due to persistent symptoms but she was referred to the emergency department out of concern that she may have pneumonia. Patient denies fevers. Reports some shortness of breath with exertion, denies swelling in her legs or orthopnea. Denies history of congestive heart failure. Related Data Home Medications Medication Instructions Recorded Confirmed CALCIUM CARBONATE/VITAMIN D3 1 tab PO Q DAY ##0 06/24/11 12/04/23 (Calcium 500 + D Tablet) fluticasone propionate 220 2 puff inhalation DAILY PRN 02/17/22 12/04/23 mcg/actuation HFA aerosol inhaler Shortness Of Breath (Flovent HFA) potassium chloride 10 mEq 20 meq PO BID 03/18/22 12/04/23 tablet,extended release(part/cryst) chlorpheniramine maleate 4 mg 4 mg PO Q8H PRN 02/05/23 12/04/23 tablet meclizine 25 mg tablet 25 mg PO DAILY PRN dizziness 02/05/23 12/04/23 Previous Rx's Medication Instructions Recorded amlodipine 10 mg tablet See Rx Instructions .Route 02/05/23 .COMPLEX #90 tabs citalopram 20 mg tablet See Rx Instructions .Route 02/05/23 .COMPLEX #90 tabs levothyroxine 100 mcg tablet See Rx Instructions .Route 02/05/23 .COMPLEX #90 tabs losartan 50 mg tablet See Rx Instructions .Route 02/05/23 .COMPLEX #90 tabs metformin 500 mg tablet See Rx Instructions .Route 02/05/23 .COMPLEX #90 tabs montelukast 10 mg tablet 10 mg PO DAILY #90 tabs 07/28/23 apixaban 5 mg tablet (Eliquis) 5 mg PO BID #180 tabs 08/12/23 metoprolol succinate 25 mg 75 mg (3 x 25 mg) PO BID #180 tabs 11/10/23 tablet,extended release 24 hr lorazepam 1 mg tablet 0.5 mg (1/2 x 1 mg) PO BEDTIME PRN 12/03/23 anxiety #30 tabs benzonatate 200 mg capsule 200 mg PO BID PRN cough #28 caps 12/04/23 Allergies Allergy/AdvReac Type Severity Reaction Status Date / Time nafcillin [NAFCILLIN] Allergy Severe ITCHY Verified 12/04/23 18:08 RASH/HIVES clindamycin [CLINDAMYCIN] Allergy Mild BLOODY Verified 12/04/23 18:08 STOOL doxycycline [DOXYCYCLINE] Allergy Mild BLOODY Verified 12/04/23 18:08 STOOL hydrocodone [HYDROCODONE] Allergy Mild PATIENT Verified 12/04/23 18:08 REPORTS MAKES ME CRAZY trazodone [TRAZODONE] Allergy Mild TACHYCARDIA Verified 12/04/23 18:08 valdecoxib [VALDECOXIB] Allergy Mild TACHYCARDIA Verified 12/04/23 18:08 Review of Systems Review of Systems Narrative: See HPI Patient History Medical History Varicose vein of leg Breast cancer Controlled type 2 diabetes mellitus without complication Asthma Anxiety Neurogenic bladder Hypothyroidism Hypertension Osteomyelitis Surgical History Anesthesia History of back surgery History of hip surgery Encounter for debridement of skin (~2012) Breast cancer Status post hysterectomy Status post appendectomy Status post cholecystectomy Family History Father Hypertension Mother Hypertension OA (osteoarthritis) Social History marital status: household members: spouse Smoking Status: Never smoker alcohol intake: never substance use type: does not use Smoking Status: Never smoker Substance Use Type: does not use Exam Initial Vital Signs Initial Vital Signs: Vital Signs Temperature 98.6 F 12/06/23 17:34 Pulse Rate 114 H 12/06/23 17:34 Respiratory Rate 22 12/06/23 17:34 Blood Pressure 125/68 12/06/23 17:34 Pulse Oximetry 97 12/06/23 17:34 Oxygen Delivery Method Room Air 12/06/23 17:34 Const: Awake, alert, no acute distress, nontoxic appearing Cardiac: Tachycardia, irregularly irregular rhythm RESP: unlabored, clear bilaterally, no wheezing GI: Soft, nontender, nondistended MSK: Atraumatic, full range of motion, no edema Skin: Warm, Dry, intact, no rashes Neuro: AO x3, CN II-XII grossly intact, moves all extremities Course Orders Ordered: ED Orders 12/06/23 20:02 BMP [Basic Metabolic Panel] Stat 12/06/23 21:13 ABG [Arterial Blood Gas] Stat Discontinued Medications Sodium Chloride (Normal Saline 0.9%) 1,000 mls @ 1,000 mls/hr IV BOLUS ONE Stop: 12/06/23 18:42 Last Infusion: 12/06/23 20:16 Dose: Infused Documented By: Admin: 12/06/23 19:10 Dose: 1,000 mls/hr Documented By: Ondansetron HCl (Ondansetron 4 Mg/2 Ml Inj) 4 mg IV NOW PRN PRN Reason: Nausea And Vomiting Ondansetron HCl (Ondansetron 4 Mg Odt) 4 mg SL NOW PRN PRN Reason: Nausea And Vomiting Vital Signs Vital signs: Vital Signs - 8 hr 12/06/23 22:00 Temperature 97.9 F Pulse Rate 98 H Respiratory Rate 14 Blood Pressure 141/100 H Pulse Oximetry 97 Oxygen Delivery Method Room Air MDM - Weakness Differential Diagnosis Differential diagnosis: Likely anemia, dehydration and other (pneumonia) Lab Data 12/06/23 18:03 12/06/23 20:02 Labs: Lab Results 12/06/23 12/06/23 12/06/23 Range/Units 18:03 20:02 21:13 WBC 13.6 H (4.5-11.0) X10^3/uL RBC 4.41 (4.0-5.2) X10^6/uL Hgb 12.3 (12.0-16.0) g/dL Hct 37.9 (36-46) % MCV 86.0 (80-100) fL MCH 28.0 (26-34) PG MCHC 32.5 (30-36) % RDW 14.4 (11.6-14.8) % Plt Count 607 H (150-400) X10^3/uL Neut % (Auto) 72.1 (50-75) % Lymph % (Auto) 16.9 L (25-40) % [place] % (Auto) 6.0 (3-14) % Eos % (Auto) 3.6 (2-4) % Baso % (Auto) 1.4 (0-2) % Neut # (Auto) 9800 H (8633-8848) /uL Lymph # (Auto) 2300 (4781-2824) /uL [place] # (Auto) 800 (0-900) /uL Eos # (Auto) 500 H (0-450) /uL Baso # (Auto) 200 H (0-100) /uL PT 14.6 H (9.4-12.5) SECONDS INR 1.3 (0.9-1.3) APTT 34 (25.1-36.5) SECONDS ABG Sample Site Right radial ABG pH 7.42 (7.35-7.45) ABG pCO2 28.4 L (35-45) mmHg ABG HCO3 19 L (23-27) mmol/L ABG Total CO2 18 L (23-27) mmol/L ABG Base Excess -4.7 L (-2-3) mmol/L Sodium 136 L 137 (137-145) mmol/L Potassium 4.0 3.6 (3.4-5.1) mmol/L Chloride 110 H 113 H (98-107) mmol/L Carbon Dioxide 14 L 17 L (22-32) mmol/L BUN 39 H 38 H (7-17) mg/dL Creatinine 1.74 H 1.66 H (0.52-1.04) mg/dL Estimated GFR 30 L 32 L (>60) mL/min BUN/Creatinine Ratio 22.4 H 22.9 H (6-22) Glucose 158 H 122 H (80-110) mg/dL Lactate 3.3 H 1.4 (0.7-2.1) mmol/L Calcium 11.5 H 10.8 H (8.4-10.2) mg/dL Total Bilirubin 0.5 (0.2-1.3) mg/dL AST 36 (14-36) IU/L ALT 28 (<35) IU/L Alkaline Phosphatase 129 H (38-126) U/L NT-Pro-B Natriuret Pep 410 (<450) pg/mL Total Protein 9.7 H (6.3-8.2) g/dL Albumin 4.3 (3.5-5.0) g/dL Globulin 5.4 H (1.7-4.1) g/dL Albumin/Globulin Ratio 0.8 L (1.0-2.8) Lipase 176 (23-300) U/L Procalcitonin 0.160 (<0.5) ng/mL Chlamy pneumoniae PCR Not detected (Not Detect) Adenovirus (PCR) Not detected (Not Detect) B.parapertussis DNA PCR Not detected (Not Detecte) Coronavirus OC43 (PCR) Not detected (Not Detect) Coronavirus HKU1 (PCR) Not detected (Not Detect) Coronavirus 229E (PCR) Not detected (Not Detect) SARS-CoV-2 (PCR) Detected H (Not Detecte) Coronavirus NL63 (PCR) Not detected (Not Detect) Human Metapneumovir PCR Not detected (Not Detect) Influenza Type A (PCR) Not detected (Not Detect) Influenza Type B (PCR) Not detected (Not Detect) M. pneumoniae (PCR) Not detected (Not Detect) Parainfluenza 1 (PCR) Not detected (Not Detect) Parainfluenza 2 (PCR) Not detected (Not Detect) Parainfluenza 3 (PCR) Not detected (Not Detect) Parainfluenza 4 (PCR) Not detected (Not Detect) RSV (PCR) Not detected (Not Detect) Entero/Rhino (PCR) Not detected (Not Detect) Imaging Data Chest x-ray: Radiologist Impression: PROCEDURE: XR CHEST 1V INDICATIONS: suspected sepsis TECHNIQUE: One view of the chest was acquired. COMPARISON: [facility], XR CHEST 2V, 12/04/2023, 18:37. FINDINGS: Surgical changes and devices: None. Lungs and pleura: Lungs are clear. No pleural effusions or pneumothorax. Mediastinum: Mediastinal contours appear normal. Heart size is normal. Bones and chest wall: No suspicious bony lesions. Overlying soft tissues appear unremarkable. IMPRESSION: No acute cardiopulmonary abnormality is seen. Approved by: Smiley Frausto M.D.,Ph.D. on 12/06/2023 at 17:48 MDM Narrative Medical decision making narrative: Two weeks of persistent nonproductive cough. Referred out of concern that patient may have pneumonia. Lungs are clear to auscultation bilaterally, she was saturating well on room air in his conversational without dyspnea. She was mildly tachycardic on arrival, but does have history of atrial fibrillation and has not taken her nightly medications. Labs show WBC count 13.6, hemoglobin 12.3, platelet count 607 (chronic thrombocytosis), sodium 137, potassium 3.6, creatinine 1.74. CO2 initially 14, repeat 17, BNP 410, lactic acid initially 3.3, repeat 1.4. ABG shows no acidosis. Chest x-ray negative for acute findings. Respiratory panel positive for COVID. Patient and at bedside informed of all lab and imaging findings. Patient likely has bronchitis as cause of her symptoms. states that when patient was taking the Tessalon Perles at home her symptoms seemed to lessen in severity. Patient counseled to continue this medication as prescribed from the walk-in clinic. Without wheezing no nebulizers indicated at this time. Discharge Plan Departure Patient Disposition: Home Clinical Impression: Bronchitis Instructions: DI for Acute Bronchitis Activity Restrictions/Additional Instructions: Your laboratory work today and chest x-ray imaging did not indicate any bacterial pneumonia. Your respiratory panel did test positive for COVID-19, however your oxygen levels are normal and this will fix itself on its own. Continue to use [id number] cough and cold medications in the benzonatate prescribed. The dark stools you experienced were likely due to the Kaopectate, which can discolor your stools. Your blood counts today were normal and it was not look like you are losing blood at this time. Please follow up with your primary care physician. Prescriptions: No Action potassium chloride 10 mEq tablet,ER particles/crystals 20 meq PO BID chlorpheniramine maleate 4 mg tablet 4 mg PO Q8H PRN Rx Instructions: do not exceed 2 doses per 24 hrs meclizine 25 mg tablet 25 mg PO DAILY PRN (Reason: dizziness) amlodipine 10 mg tablet See Rx Instructions .ROUTE .COMPLEX Qty: 90 3RF Dose Instruction: TAKE 1 TABLET DAILY Rx Instructions: TAKE 1 TABLET DAILY citalopram 20 mg tablet See Rx Instructions .ROUTE .COMPLEX Qty: 90 3RF Dose Instruction: TAKE 1 TABLET DAILY Rx Instructions: TAKE 1 TABLET DAILY levothyroxine 100 mcg tablet See Rx Instructions .ROUTE .COMPLEX Qty: 90 3RF Dose Instruction: TAKE 1 TABLET EVERY MORNING Rx Instructions: TAKE 1 TABLET EVERY MORNING losartan 50 mg tablet See Rx Instructions .ROUTE .COMPLEX Qty: 90 3RF Dose Instruction: TAKE 1 TABLET DAILY Rx Instructions: TAKE 1 TABLET DAILY metformin 500 mg tablet See Rx Instructions .ROUTE .COMPLEX Qty: 90 3RF Dose Instruction: TAKE 1 TABLET DAILY Rx Instructions: TAKE 1 TABLET DAILY benzonatate 200 mg capsule 200 mg PO BID PRN (Reason: cough) Qty: 28 0RF CALCIUM CARBONATE/VITAMIN D3 (Calcium 500 + D Tablet) 1 tab PO Q DAY Qty: 0 montelukast 10 mg tablet 10 mg PO DAILY Qty: 90 1RF Eliquis 5 mg tablet 5 mg PO BID Qty: 180 3RF metoprolol succinate 25 mg tablet extended release 24 hr 75 mg PO BID Qty: 180 2RF lorazepam 1 mg tablet 0.5 mg PO BEDTIME PRN (Reason: anxiety) Qty: 30 0RF fluticasone propionate [Flovent HFA] 220 mcg/actuation Hfa Aerosol Inhaler 2 puff INHALATION DAILY PRN (Reason: Shortness Of Breath) Referrals: Mumtaz Groves MD [Primary Care Provider] - Stand Alone Forms: Patient Portal/API
[2023-12-06 18:32] LABS: Alanine Aminotransferase 28 IU/L (<35); Albumin 4.3 g/dL (3.5-5.0); Albumin Globulin Ratio 0.8 (1.0-2.8); Alkaline Phosphatase 129 U/L (38-126); Aspartate Aminotransferase 36 IU/L (14-36); BUN Creatinine Ratio 22.4 (6-22); Bilirubin Total 0.5 mg/dL (0.2-1.3); Blood Urea Nitrogen 39 mg/dL (7-17); Calcium 11.5 mg/dL (8.4-10.2); Carbon Dioxide 14 mmol/L (22-32); Chloride 110 mmol/L (98-107); Estimated Glomerular Filt Rate 30 mL/min (>60); Globulin 5.4 g/dL (1.7-4.1); Glucose 158 mg/dL (80-110); HEMOLYSIS < 15 (0-50); Lactate (Lactic Acid) 3.3 mmol/L (0.7-2.1); Lipase 176 U/L (23-300); Sodium 136 mmol/L (137-145); Total Protein 9.7 g/dL (6.3-8.2)
[2023-12-06 18:37] LABS: INR 1.3 (0.9-1.3); Prothrombin Time 14.6 SECONDS (9.4-12.5)
[2023-12-06 18:40] LABS: PTT Partial Thromboplastin Tim 34 SECONDS (25.1-36.5)
[2023-12-06 19:10] LABS: NT-proBNP (BNP-Adult 18+) 410 pg/mL (<450)
[2023-12-06] MEDS: SODIUM CHLORIDE 0.9% 1,000 ML 1000 ML IV (19:10)
[2023-12-06 19:48] LABS: Reflexed Lactate in 2 Hours Y
[2023-12-06 20:19] LABS: Lactate 2HR (Lactic Acid Rflx) 1.4 mmol/L (0.7-2.1)
[2023-12-06 20:36] LABS: Adenovirus Not Detected (Not Detect); B. parapertussis Not Detected (Not Detecte); Bordetella pertussis Not Detected (Not Detect); Chlamydophila pneumoniae Not Detected (Not Detect); Coronavirus 229E Not Detected (Not Detect); Coronavirus HKU1 Not Detected (Not Detect); Coronavirus NL 63 Not Detected (Not Detect); Coronavirus OC43 Not Detected (Not Detect); Human Metapneumovirus Not Detected (Not Detect); Human Rhinovirus/Enterovirus Not Detected (Not Detect); Influenza A Not Detected (Not Detect); Influenza B Not Detected (Not Detect); Mycoplasma pneumoniae Not Detected (Not Detect); Parainfluenza Virus 1 Not Detected (Not Detect); Parainfluenza Virus 2 Not Detected (Not Detect); Parainfluenza Virus 3 Not Detected (Not Detect); Parainfluenza Virus 4 Not Detected (Not Detect); Respiratory Syncytial Virus Not Detected (Not Detect); SARS- CoV-2 Detected (Not Detecte)
[2023-12-06 21:02] LABS: BUN Creatinine Ratio 22.9 (6-22); Blood Urea Nitrogen 38 mg/dL (7-17); Calcium 10.8 mg/dL (8.4-10.2); Carbon Dioxide 17 mmol/L (22-32); Chloride 113 mmol/L (98-107); Estimated Glomerular Filt Rate 32 mL/min (>60); Glucose 122 mg/dL (80-110); HEMOLYSIS < 15 (0-50); Potassium 3.6 mmol/L (3.4-5.1); Sodium 137 mmol/L (137-145)
[2023-12-06 21:26] LABS: PCO2 ABG 28.4 mmHg (35-45); pH ABG 7.42 (7.35-7.45)
[2023-12-06 21:27] LABS: Base Excess ABG -4.7 mmol/L (-2-3); HCO3 ABG 19 mmol/L (23-27)
[2023-12-06 21:29] LABS: TCO2 ABG 18 mmol/L (23-27)
[2023-12-06 21:30] LABS: Allen Test for ABG Passed? Yes, Passed; Blood Gas Collection Site Right Radial
== END 2023-12-06 22:01 | disposition home or self-care (01) ==
PROVIDERS: Emergency Medicine; Emergency Provider Emergency Medicine; PCP Family Medicine
DX: J20.9 Acute bronchitis, unspecified (principal); R06.02 Shortness of breath; Z79.01 Long term (current) use of anticoagulants; Z79.899 Other long term (current) drug therapy; Z11.52 Encounter for screening for COVID-19
CPT/HCPCS: 36415; 36600; 71045; 80048; 80053; 83605; 83690; 83880; 84145; 85025; 85610; 85730; 87040; 87633; 93005; 99284

== ENCOUNTER 2025-03-12 17:30 | Inpatient (IN) | payer MEDICARE, OTHER, SELFPAY ==
[2022-02-17 13:23] VITALS: BMI 40.9
[2025-03-12] VITALS (13 sets, daily range): BP systolic 110–138; BP diastolic 60–70; PULSE 71–85; RESP 20–35; TEMP 37.1; O2SAT 95–99; BMI 51.5
--- NOTE | 2025-03-12 17:55 | DI.RAD.S_ITS ---
PROCEDURE: XR CHEST 1V INDICATIONS: Chest Pain TECHNIQUE: One view of the chest was acquired. COMPARISON: [facility], CR, XR CHEST 2V, 12/04/2023, 18:37. [facility], CR, XR CHEST 1V, 12/06/2023, 18:17. FINDINGS: Surgical changes and devices: None. Lungs and pleura: On this supine examination, no large pneumothorax or large pleural effusions are seen. No focal areas of lung consolidation are seen. Low lung volumes are noted. This causes a crowded appearance to the lung markings and limits evaluation. Mediastinum: The cardiac contours are within normal limits. The aorta demonstrates calcification and tortuosity. Bones and chest wall: Age-appropriate bony degenerative changes are seen. No suspicious bony lesions. Overlying soft tissues appear unremarkable. IMPRESSION: Limited portable chest examination, without a significant cardiopulmonary abnormality identified. Dictated by: Gm Islas M.D. on 03/12/2025 at 18:19 Approved by: Gm Islas M.D. on 03/12/2025 at 18:20
[2025-03-12 18:16] LABS: Hematocrit 27.3 % (36-46); Hemoglobin 8.2 g/dL (12.0-16.0); Lymphocytes Absolute Auto 1200 /uL (1100-4500); Mean Corpuscular HGB Conc 30.0 % (30-36); Mean Corpuscular Hemoglobin 21.1 PG (26-34); Mean Corpuscular Volume 70.1 fL (80-100); Platelet Count 578 X10^3/uL (150-400)
[2025-03-12 18:17] LABS: Add Manual Diff / Slide Review SLIDE REVIEW
[2025-03-12 18:18] LABS: INR 1.4 (0.9-1.3); Prothrombin Time 16.0 SECONDS (9.4-12.5)
[2025-03-12 18:20] LABS: PTT Partial Thromboplastin Tim 27 SECONDS (25.1-36.5)
[2025-03-12 18:22] LABS: Alanine Aminotransferase 29 IU/L (<35); Albumin 4.1 g/dL (3.5-5.0); Albumin Globulin Ratio 0.9 (1.0-2.8); Alkaline Phosphatase 94 U/L (38-126); Blood Urea Nitrogen 33 mg/dL (7-17); Calcium 11.3 mg/dL (8.4-10.2); Carbon Dioxide 23 mmol/L (22-32); Chloride 107 mmol/L (98-107); Creatine Kinase 165 U/L (30-135); Estimated Glomerular Filt Rate 37 mL/min (>60); Globulin 4.6 g/dL (1.7-4.1); Glucose 118 mg/dL (70-99); HEMOLYSIS < 15 (0-50); Lipase 190 U/L (23-300); Magnesium 1.9 mg/dL (1.6-2.3); Potassium 4.2 mmol/L (3.4-5.1); Sodium 139 mmol/L (137-145); Total Protein 8.7 g/dL (6.3-8.2)
[2025-03-12 18:23] LABS: Anisocytosis 2+; Hypochromasia 1+; Microcytosis 2+
--- NOTE | 2025-03-12 18:23 | ED.WEAKNESS ---
HPI - Weakness General Chief complaint: Weakness Stated complaint: Weakness Time Seen by Provider: 03/12/25 18:15 Source: patient, EMS, RN notes reviewed and old records reviewed Mode of arrival: EMS Limitations: no limitations History of Present Illness HPI Narrative: 77-year-old female with a history of atrial fibrillation on Eliquis, diabetes, hypertension, depression who presents with complaint of generalized weakness. Patient denies any fevers or chills. Denies chest pain or shortness of breath. No nausea or vomiting. No new urinary changes no new issues to bowel movements or urination. She notes that her right leg has been giving her little bit of trouble. States she has a history of issues with the hip and so she has been spending a lot of time in bed I think she got weak or because of this. She can states she can move her arms and legs normally. She was using her walker regularly but notes was having more and more trouble in slid out of bed the other day. She landed on her shoulder but states did not hit her head. No loss of consciousness. She notes that she has bed sores on her buttocks and groin and extremities. She uses a brief to urinate. Related Data Home Medications ?Medication ?Instructions ?Recorded ?Confirmed CALCIUM CARBONATE/VITAMIN D3 1 tab PO Q DAY ##0 06/24/11 06/23/24 (Calcium 500 + D Tablet) fluticasone propionate 220 2 puff inhalation DAILY PRN 02/17/22 06/23/24 mcg/actuation HFA aerosol inhaler Shortness Of Breath (Flovent HFA) potassium chloride 10 mEq 20 meq PO BID 03/18/22 06/23/24 tablet,extended release(part/cryst) chlorpheniramine maleate 4 mg 4 mg PO Q8H PRN 02/05/23 06/23/24 tablet meclizine 25 mg tablet 25 mg PO DAILY PRN dizziness 02/05/23 06/23/24 Previous Rx's ?Medication ?Instructions ?Recorded citalopram 20 mg tablet 20 mg PO DAILY #90 tabs 04/18/24 losartan 50 mg tablet 50 mg PO DAILY #90 tabs 04/18/24 metformin 500 mg tablet 500 mg PO DAILY #90 tabs 04/18/24 montelukast 10 mg tablet 10 mg PO DAILY #90 tabs 07/07/24 apixaban 5 mg tablet (Eliquis) 5 mg PO BID #180 tabs 08/19/24 lorazepam 1 mg tablet 0.5 mg (1/2 x 1 mg) PO BEDTIME PRN 09/30/24 anxiety #30 tabs levothyroxine 100 mcg tablet 100 mcg PO QAM #90 tabs 01/09/25 amlodipine 10 mg tablet 10 mg PO DAILY #90 tabs 01/31/25 metoprolol succinate 25 mg 75 mg (3 x 25 mg) PO BID #540 tabs 02/06/25 tablet,extended release 24 hr Allergies Allergy/AdvReac Type Severity Reaction Status Date / Time nafcillin (NAFCILLIN) Allergy Severe ITCHY Verified 03/12/25 17:46 RASH/HIVES clindamycin (CLINDAMYCIN) Allergy Mild BLOODY Verified 03/12/25 17:46 STOOL doxycycline (DOXYCYCLINE) Allergy Mild BLOODY Verified 03/12/25 17:46 STOOL hydrocodone (HYDROCODONE) Allergy Mild PATIENT Verified 03/12/25 17:46 REPORTS MAKES ME CRAZY trazodone (TRAZODONE) Allergy Mild TACHYCARDIA Verified 03/12/25 17:46 valdecoxib (VALDECOXIB) Allergy Mild TACHYCARDIA Verified 03/12/25 17:46 Review of Systems Review of Systems ROS Unobtainable: All systems reviewed & are unremarkable except as noted in HPI and below Patient History Medical History Varicose vein of leg Breast cancer Controlled type 2 diabetes mellitus without complication Asthma Anxiety Neurogenic bladder Hypothyroidism Hypertension Osteomyelitis Surgical History Anesthesia History of back surgery History of hip surgery Encounter for debridement of skin (~2012) Breast cancer Status post hysterectomy Status post appendectomy Status post cholecystectomy Family History Father Hypertension Mother Hypertension OA (osteoarthritis) Social History marital status: household members: spouse alcohol intake: never substance use type: does not use Exam Narrative Exam Narrative: GEN: well nourished, elderly appearing female, alert and oriented x 3, patient appears to be in mild distress. HEENT: Atraumatic, pupils are equal round reactive to light, extraocular movements are intact, nares are clear, there is no conjunctival pallor. Throat is clear without any exudates, erythema, tonsillar enlargement or uvular deviation HEART: Regular rate and rhythm without murmur, clicks, rubs. No carotid bruits, pulses are equal in upper and lower extremities LUNGS:Lungs clear to auscultation, no wheezes, rales, crackles, chest moves symmetrically ABD:bowel sounds normal, soft, non-tender, no guarding, rebound, rigidity, no masses noted, no hepatosplenomegaly :No CVA tenderness. MSCL: Non-tender, no muscle atrophy, patient can lift legs off the bed with straight leg raise bilaterally strength is equal bilaterally but patient can only raise with a couple inches off the bed. Full range of motion of bilateral upper extremities no weakness appreciated bilateral upper extremities. NEURO:CN 2-12 intact, sensation normal, no facial droop. No dysarthria, no aphasia. SKIN: Patient has multiple areas with decubitus on her sacrum, left posterior thigh, she has some skin breakdown in the inguinal folds and underneath her pannus as well as wound on her right lower thigh. They appear to be through the skin with some subcutaneous exposure. Initial Vital Signs Initial Vital Signs: Vital Signs Temperature 98.8 F 03/12/25 17:36 Pulse Rate 85 03/12/25 17:36 Respiratory Rate 20 03/12/25 17:36 Blood Pressure 134/68 03/12/25 17:36 Pulse Oximetry 97 03/12/25 17:36 Oxygen Delivery Method Room Air 03/12/25 17:36 Course Orders Ordered: ED Orders 03/12/25 17:55 XR chest 1V Stat EKG-12 Lead Stat 03/12/25 18:00 Complete Blood Count AUTO DIFF Stat Comprehensive Metabolic Panel Stat Lipase Stat Magnesium Stat NT-proBNP (BNP-Adult 18+) Stat PTT Partial Thromboplastin Andrea Stat Prothrombin Time INR Stat Troponin & CK Cardiac Panel Stat 03/12/25 18:25 XR hip w pel LT 2V Stat 03/12/25 18:45 UA Complete [Urinalysis and Microscopic] Stat Urine Culture Stat Discontinued Medications Sodium Chloride (Normal Saline 0.9%) 1,000 mls @ 1,000 mls/hr IV BOLUS ONE Stop: 03/12/25 20:18 Last Admin: 03/12/25 19:45 Dose: 1,000 mls/hr Documented By: PIETER Ceftriaxone Sodium 1,000 mg/ (Sodium Chloride) 100 mls @ 200 mls/hr IV NOW ONE Stop: 03/12/25 19:50 Last Admin: 03/12/25 19:55 Dose: 200 mls/hr Documented By: LYNDSAY Vital Signs Vital signs: Vital Signs - 8 hr 03/12/25 17:36 03/12/25 17:36 03/12/25 18:00 Temperature 98.8 F Pulse Rate 85 84 Respiratory Rate 20 27 H Blood Pressure 134/68 110/68 Pulse Oximetry 97 95 Oxygen Delivery Method Room Air 03/12/25 18:00 03/12/25 18:49 03/12/25 18:50 Temperature Pulse Rate 79 77 Respiratory Rate 27 H Blood Pressure 128/60 Pulse Oximetry 99 Oxygen Delivery Method 03/12/25 18:50 03/12/25 19:04 03/12/25 19:05 Temperature Pulse Rate 74 72 71 Respiratory Rate 22 24 23 Blood Pressure Pulse Oximetry 97 Oxygen Delivery Method 03/12/25 19:05 Temperature Pulse Rate Respiratory Rate Blood Pressure 135/63 Pulse Oximetry Oxygen Delivery Method MDM - Weakness Lab Data 03/12/25 18:00 03/12/25 18:00 Labs: Lab Results 03/12/25 03/12/25 Range/Units 18:00 18:45 WBC 9.9 (4.5-11.0) X10^3/uL RBC 3.90 L (4.0-5.2) X10^6/uL Hgb 8.2 L (12.0-16.0) g/dL Hct 27.3 L (36-46) % MCV 70.1 L (80-100) fL MCH 21.1 L (26-34) PG MCHC 30.0 (30-36) % RDW 18.9 H (11.6-14.8) % Plt Count 578 H (150-400) X10^3/uL Neut % (Auto) 69.6 (50-75) % Lymph % (Auto) 12.0 L (25-40) % [place] % (Auto) 7.4 (3-14) % Eos % (Auto) 9.7 H (2-4) % Baso % (Auto) 1.3 (0-2) % Neut # (Auto) 6900 (7557-8526) /uL Lymph # (Auto) 1200 (9804-3502) /uL [place] # (Auto) 700 (0-900) /uL Eos # (Auto) 1000 H (0-450) /uL Baso # (Auto) 100 (0-100) /uL RBC Morphology See below Hypochromasia 1+ H Anisocytosis 2+ H Microcytosis 2+ H Stomatocytes 1+ H Rouleaux 1+ H PT 16.0 H (9.4-12.5) SECONDS INR 1.4 H (0.9-1.3) APTT 27 (25.1-36.5) SECONDS Sodium 139 (137-145) mmol/L Potassium 4.2 (3.4-5.1) mmol/L Chloride 107 (98-107) mmol/L Carbon Dioxide 23 (22-32) mmol/L BUN 33 H (7-17) mg/dL Creatinine 1.44 H (0.52-1.04) mg/dL Estimated GFR 37 L (>60) mL/min BUN/Creatinine Ratio 22.9 H (6-22) Glucose 118 H (70-99) mg/dL Calcium 11.3 H (8.4-10.2) mg/dL Magnesium 1.9 (1.6-2.3) mg/dL Total Bilirubin 0.4 (0.2-1.3) mg/dL AST 38 H (14-36) IU/L ALT 29 (<35) IU/L Alkaline Phosphatase 94 (38-126) U/L Total Creatine Kinase 165 H (30-135) U/L Troponin I < 0.012 (0.01-0.034) ng/mL NT-Pro-B Natriuret Pep 910 H (<450) pg/mL Total Protein 8.7 H (6.3-8.2) g/dL Albumin 4.1 (3.5-5.0) g/dL Globulin 4.6 H (1.7-4.1) g/dL Albumin/Globulin Ratio 0.9 L (1.0-2.8) Lipase 190 (23-300) U/L Urine Color Yellow Urine Appearance Turbid Urine pH 6.5 (4.5-8.0) Ur Specific [place] 1.015 (1.000-1.035) Urine Protein 2+ H (Negative) Urine Glucose (UA) Negative (Negative) g/dL Urine Ketones Negative (NEGATIVE) Urine Occult Blood 3+ H (Negative) Urine Nitrate Positive H (Negative) Urine Bilirubin Negative (NEGATIVE) Urine Urobilinogen 0.2 (0.2) E.U./dL Ur Leukocyte Esterase 3+ H (NEGATIVE) Urine RBC >100/hpf H (0-5/HPF) Urine WBC >100/hpf H (0-5/HPF) Ur Squamous Epith Cells None seen (0-5/HPF) Urine Bacteria Many (>30) H (None) Ur Culture Indicated? Specimen cultured Vol Urine Centrifuged 10ml (spun) ECG Data Attestation: I personally reviewed and interpreted this ECG as follows: Prior ECG tracings: available for review Interpretation: Sinus rhythm first-degree AV block rate of 79 [place] 210 QRS of 106 QTC of 451, no acute ST elevation or depression noted. Patient has prior from 12/06/2023 nonspecific change. MDM Narrative Medical decision making narrative: EKG shows sinus rhythm first-degree AV block. Labs show white count 9.9 hemoglobin is 8.2 was 12.3 in November of 2023 no priors in the interim patient has a microcytic anemia platelets of 78 patient has been persistently elevated for several years. INR is 1.4 PTT is 27. Creatinine is 1.44, BUN 33, electrolytes are appropriate, glucose is 118 calcium is elevated 11.3 this could be contributing to patient's weakness she has been hypercalcemic in the past, AST is 38 but normal ALT in the past with normal bilirubin and lipase. Troponins negative at less than 0.012 with a total CK of 165 and a BNP of 910. Patient has nitrate positive urine 3+ blood 3+ leuks 100 RBCs 100 WBCs. Many bacteria was sent for culture. Chest x-ray shows no significant cardiopulmonary abnormality. Hip x-ray shows no acute fracture intact appearing left hip arthroplasty hardware severe contralateral right hip degenerative changes. Patient received fluids for hypercalcemia. Rocephin for UTI. Was noted patient has not ampicillin allergy but was treated with Rocephin and a multi day hospitalization in 2021 without issue. Spoke with Dr. Cano @ 8 who accepts for admission for weakness, UTI, hypercalcemia and multiple wounds on sacrum, legs and pannus/inguinal region. Spoke with the patient's family updated them on today's findings. Discharge Plan Departure Patient Disposition: Admitted As Inpatient Clinical Impression: Hypercalcemia, UTI (urinary tract infection), Weakness Admit Date/Time: 03/12/25 19:57 Admit Provider: Elgin Cano
[2025-03-12 18:24] LABS: Stomatocytes 1+
[2025-03-12 18:25] LABS: Rouleaux 1+
--- NOTE | 2025-03-12 18:25 | DI.RAD.S_ITS ---
PROCEDURE: XR HIP W PEL IF DONE LT 2V INDICATIONS: Left hip pain, fall TECHNIQUE: AP pelvis with lateral view(s) of the left hip(s). COMPARISON: [facility], CR, XR CHEST 1V, 03/12/2025, 18:27. FINDINGS: Bones: No fractures or dislocations. Pelvic ring appears intact. No suspicious bony lesions. Left hip arthroplasty hardware is seen, which appears intact. There is severe contralateral right hip degenerative change. Lumbosacral postoperative and degenerative changes are seen. Soft tissues: The visualized bowel gas pattern is normal. No suspicious soft tissue calcifications. IMPRESSION: No acute fracture is seen. Intact appearing left hip arthroplasty hardware. There is severe contralateral right hip degenerative change. Dictated by: Gm Islas M.D. on 03/12/2025 at 18:20 Approved by: Gm Islas M.D. on 03/12/2025 at 18:21
[2025-03-12 18:33] LABS: NT-proBNP (BNP-Adult 18+) 910 pg/mL (<450); Troponin I < 0.012 ng/mL (0.01-0.034)
--- NOTE | 2025-03-12 18:59 | PC.NURSE ---
Pt given bed bath on arrival after IV placement and labs drawn. Cultures drawn after IV placement. Sy placed d/t generalized weakness and difficulty for pt to ambulate for restroom. Clean catch pulled from sy after placement and sent to lab.
[2025-03-12 19:03] LABS: Bilirubin Urine UA NEGATIVE (NEGATIVE); Color Urine UA YELLOW; Glucose Urine UA NEGATIVE (Negative); Ketones Urine UA NEGATIVE (NEGATIVE); Leukocyte Esterase Urine UA 3+ (NEGATIVE); Nitrite Urine UA POSITIVE (Negative); Occult Blood Urine UA 3+ (Negative); Protein Urine UA 2+ (Negative); Specific Gravity Urine UA 1.015 (1.000-1.035); Urobilinogen Urine UA 0.2 E.U./dL (0.2)
[2025-03-12 19:04] LABS: Appearance Urine UA TURBID; pH Urine UA 6.5 (4.5-8.0)
[2025-03-12 19:08] LABS: Culture Indicated Urine Specimen Cultured
--- NOTE | 2025-03-12 19:14 | PC.NURSE ---
Pt assessed by staff electrical engineer and MD at bedside. Received head to toe bed bath and barrier cream was applied. Observed pressure injury on L posterior thigh and in between buttocks. Allevyn gentle border patch applied to L posterior thigh. Schilling placed after bed bath completed.
--- NOTE | 2025-03-12 19:25 | EKG_ITS ---
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
[2025-03-12] MEDS: SODIUM CHLORIDE 0.9% 1,000 ML 1000 ML IV (19:45)
--- NOTE | 2025-03-12 21:47 | PC.NURSE ---
pt placed in hospital bed from stretcher due to boarding in the ED for admission
--- NOTE | 2025-03-12 21:49 | PC.NURSE ---
Pt transferred onto hospital bed for comfort. Q2 turns in place. Pt provided delphine care and linen change. Pictures of noted wounds obtained for EMR.
--- NOTE | 2025-03-12 23:47 | PC.NURSE ---
Dr Cano called, verbal order to order pt's home meds given.
[2025-03-13] VITALS (12 sets, daily range): BP systolic 117–138; BP diastolic 50–63; PULSE 70–86; RESP 16–54; TEMP 36.6; O2SAT 93–97; BMI 51.5
[2025-03-13] MEDS: LEVOTHYROXINE 100 MCG TABLET PO (06:06)
[2025-03-13] MEDS: CITALOPRAM 10 MG TABLET 20 MG PO (08:53)
[2025-03-13] MEDS: MONTELUKAST 10 MG TABLET PO (08:55)
[2025-03-13] MEDS: METOPROLOL ER 25 MG TABLET 75 MG PO ×2 (08:55→20:47)
[2025-03-13] MEDS: LOSARTAN 50 MG TABLET PO (08:56)
[2025-03-13] MEDS: APIXABAN 5 MG TABLET PO ×2 (08:57→20:49)
--- NOTE | 2025-03-13 09:17 | P.HP_ITS ---
History of Present Illness History of Present Illness Date Patient Seen: 03/13/25 Time Patient Seen: 08:00 Chief complaint: Weakness Narrative: Patient is a 79-year-old female with a history of paroxysmal atrial fibrillation type 2 diabetes CKD stage IIIB hypertension hypothyroidism depression morbid obesity and major depression presents to the emergency department. Patient lives at home and her . She has a very fragile living circumstances due to her chronic medical conditions and her obesity she has a hard time with mobility. She relies on her to help move her around the house with a walker. Patient had a fall earlier this week and was on the ground for about 8 hours before the paramedics were called to lift her up. She has had increasing problems with weakness since then and then had another fall this weekend and her could not get her up and the ambulance brought her in. She has noticed some ongoing concerns with generalized weakness. She says sometimes she has some troubles with her memory. When she fell she landed on her hip and shoulder and she was complaining of some mild pain. She says that is not as big of an issue now. She does admit that she spends a lot of time in bed and is not able to move. She has a history of urinary tract infections. She has not had any recent problems with chest pain palpitations. In review of laboratory tests from her admission to the hospital patient had an EKG which showed sinus rhythm. Chest x-ray which was poorly visualized but no acute consolidations. Her vital signs show afebrile status her blood pressure looks good. Patient had a normal white blood cell count. She is anemic with a hemoglobin of 8.2. Her urinalysis shows 3+ blood 3+ leukocytes. Her kidney function shows an EGFR of 37. Her liver enzymes are normal her troponin is normal her total CK is low at 165. [facility] Medical History Varicose vein of leg Breast cancer Controlled type 2 diabetes mellitus without complication Asthma Anxiety Neurogenic bladder Hypothyroidism Hypertension Osteomyelitis Surgical History Anesthesia History of back surgery History of hip surgery Encounter for debridement of skin (~2012) Breast cancer Status post hysterectomy Status post appendectomy Status post cholecystectomy Family History Father Hypertension Mother Hypertension OA (osteoarthritis) Social History marital status: household members: spouse alcohol intake: never substance use type: does not use Meds Home Medications and Allergies Home Medications ?Medication ?Instructions ?Recorded ?Confirmed ?Type fluticasone propionate 220 2 puff inhalation DAILY PRN 02/17/22 03/12/25 History mcg/actuation HFA aerosol inhaler Shortness Of Breath (Flovent HFA) chlorpheniramine maleate 4 mg 4 mg PO Q8H PRN allergy symptoms 02/05/23 03/12/25 History tablet meclizine 25 mg tablet 25 mg PO DAILY PRN dizziness 02/05/23 03/12/25 History citalopram 20 mg tablet 20 mg PO DAILY #90 tabs 11/0 10/0603/12/25 Rx losartan 50 mg tablet 50 mg PO DAILY #90 tabs 110 10/0603/12/25 Rx metformin 500 mg tablet 500 mg PO DAILY #90 tabs 10/0603/12/25 Rx montelukast 10 mg tablet 10 mg PO DAILY #90 tabs 01/09/0603/12/25 Rx apixaban 5 mg tablet (Eliquis) 5 mg PO BID #180 tabs 0 08/19/24 03/12/25 Rx lorazepam 1 mg tablet 0.5 mg (1/2 x 1 mg) PO BEDTI ME PRN 09/30/24 03/12/25 Rx anxiety #30 tabs levothyroxine 100 mcg tablet 100 mcg PO QAM #90 tabs 0 01/09/25 03/12/25 Rx amlodipine 10 mg tablet 10 mg PO DAILY #90 tabs 01/1303/12/25 Rx metoprolol succinate 25 mg 75 mg (3 x 25 mg) PO BID #5 40 tabs 02/06/25 03/12/25 Rx tablet,extended release 24 hr Allergies Allergy/AdvReac Type Severity Reaction Status Date / Time nafcillin (NAFCILLIN) Allergy Severe ITCHY Verified 03/12/25 17:46 RASH/HIVES clindamycin (CLINDAMYCIN) Allergy Mild BLOODY Verified 03/12/25 17:46 STOOL doxycycline (DOXYCYCLINE) Allergy Mild BLOODY Verified 03/12/25 17:46 STOOL hydrocodone (HYDROCODONE) Allergy Mild PATIENT Verified 03/12/25 17:46 REPORTS MAKES ME CRAZY trazodone (TRAZODONE) Allergy Mild TACHYCARDIA Verified 03/12/25 17:46 valdecoxib (VALDECOXIB) Allergy Mild TACHYCARDIA Verified 03/12/25 17:46 Exam Vital Signs (past 8 hours): - 03/13/25 03:11 03/13/25 03:12 03/13/25 03:12 Pulse Rate 78 77 Respiratory Rate 54 H 54 H Blood Pressure 124/58 L Pulse Oximetry 94 95 Oxygen Delivery Method Room Air 03/13/25 07:58 03/13/25 08:55 03/13/25 08:56 Pulse Rate 70 70 Respiratory Rate Blood Pressure 117/58 L 117/58 L 117/58 L Pulse Oximetry Oxygen Delivery Method Oxygen Delivery Method Room Air Narrative Exam Narrative: Gen.: Alert and oriented x3 no apparent distress. HEENT: NCAT PERRLA tympanic membranes are clear nares are patent oral mucosa is moist no tonsillar hypertrophy neck is supple without lymphadenopathy no thyroid enlargement. Cardio: S1-S2 regular rate and rhythm no murmurs appreciated. Respiratory: Lungs are clear to auscultation no wheezes or crackles normal respiratory effort. Abdomen: Soft nontender no rebound or guarding no liver spleen enlargement no appreciable hernias : Patient with noticed by nursing staff to have some sacral decubiti Extremities: Full range of motion no appreciable weakness no cyanosis or edema. Neurologic: Grossly intact. Objective Labs 03/12/25 18:00 03/12/25 18:00 Labs: Laboratory Results - last 24 hr 03/12/25 03/12/25 18:00 18:45 WBC 9.9 RBC 3.90 L Hgb 8.2 L Hct 27.3 L MCV 70.1 L MCH 21.1 L MCHC 30.0 RDW 18.9 H Plt Count 578 H Neut % (Auto) 69.6 Lymph % (Auto) 12.0 L [place] % (Auto) 7.4 Eos % (Auto) 9.7 H Baso % (Auto) 1.3 Neut # (Auto) 6900 Lymph # (Auto) 1200 [place] # (Auto) 700 Eos # (Auto) 1000 H Baso # (Auto) 100 RBC Morphology See below Hypochromasia 1+ H Anisocytosis 2+ H Microcytosis 2+ H Stomatocytes 1+ H Rouleaux 1+ H PT 16.0 H INR 1.4 H APTT 27 Sodium 139 Potassium 4.2 Chloride 107 Carbon Dioxide 23 BUN 33 H Creatinine 1.44 H Estimated GFR 37 L BUN/Creatinine Ratio 22.9 H Glucose 118 H Calcium 11.3 H Magnesium 1.9 Total Bilirubin 0.4 AST 38 H ALT 29 Alkaline Phosphatase 94 Total Creatine Kinase 165 H Troponin I < 0.012 NT-Pro-B Natriuret Pep 910 H Total Protein 8.7 H Albumin 4.1 Globulin 4.6 H Albumin/Globulin Ratio 0.9 L Lipase 190 Urine Color Yellow Urine Appearance Turbid Urine pH 6.5 Ur Specific [place] 1.015 Urine Protein 2+ H Urine Glucose (UA) Negative Urine Ketones Negative Urine Occult Blood 3+ H Urine Nitrate Positive H Urine Bilirubin Negative Urine Urobilinogen 0.2 Ur Leukocyte Esterase 3+ H Urine RBC >100/hpf H Urine WBC >100/hpf H Ur Squamous Epith Cells None seen Urine Bacteria Many (>30) H Ur Culture Indicated? Specimen cultured Vol Urine Centrifuged 10ml (spun) Assessment & Plan Assessment and plan (1) Weakness: Status: Acute (2) UTI (urinary tract infection): Qualifiers: Urinary tract infection type: acute cystitis Hematuria presence: with hematuria Qualified Code(s): N30.01 - Acute cystitis with hematuria Status: Acute Plan Urinary tract infection patient with a urinary tract infection with leukocytes blood in her urine. History of urinary tract infections. Patient has significant profound weakness he has some chronic low-grade weakness but this has worsened to the point where she is not able to walk. She has noticed increasing weakness and fatigue. In some mental sluggishness and some confusion although she is mentating well at this time. She will be admitted to the hospital with IV antibiotics. In monitoring culture and sensitivity for urinary tract infection. Generalized weakness. Patient with generalized weakness and decline. History of morbid obesity. Patient has at the best of days limited ambulation at home. She has now had 2 falls. She shows no sign of fracture on imaging in the emergency department. She will need physical therapy. I am concerned about her long-term mobility options at home and may need admission to halfway facility. Anemia. Patient has a hemoglobin that is quite low. Obtain iron studies hemoglobin and hematocrit vitamin B12 and ferritin for further delineation. I think it maybe anemia related to her chronic disease status. Sacral decubitus. Patient has a wound that was present on admission to the hospital due to her bed-bound status. She will have wound care provided Atrial fibrillation paroxysmal. Patient's EKG shows she is not in atrial fibrillation. She is on a beta-tarah this will be continued she is on anticoagulation and this will be continued as well. Hypertension. Patient's blood pressure is elevated she will be continued and her antihypertensives including losartan and amlodipine. Diabetes. Patient is on metformin this will be held. Patient will be given Lantus insulin 20 units with insulin sliding scale to monitor her blood sugars. Depression. Patient on antidepressant sees medications will be continued. Hypothyroidism patient on thyroid replacement her thyroid medication will be continued. Disposition and plan. Patient will be admitted to the hospital as an inpatient requiring IV antibiotics physical therapy due to her significant weakness and falls. Time-Based Coding :: [TOTAL MINUTES] spent with patient and on the chart (including review of chart, obtaining history, exam, reviewing outside data, placing orders, documenting exam and treatment plan, and counseling patient) on [DATE]. PROFEE Veterinary Assistant Technician Document charge(s): Yes Charge Codes Initial inpatient/observation care: 11684
[2025-03-13 09:55] LABS: Add Manual Diff / Slide Review NO; Hematocrit 25.0 % (36-46); Hemoglobin 7.6 g/dL (12.0-16.0); Lymphocytes Absolute Auto 1300 /uL (1100-4500); Mean Corpuscular HGB Conc 30.6 % (30-36); Mean Corpuscular Hemoglobin 21.4 PG (26-34); Mean Corpuscular Volume 69.9 fL (80-100); Platelet Count 493 X10^3/uL (150-400)
[2025-03-13 10:09] LABS: Alanine Aminotransferase 23 IU/L (<35); Albumin 3.8 g/dL (3.5-5.0); Albumin Globulin Ratio 0.9 (1.0-2.8); Alkaline Phosphatase 93 U/L (38-126); Blood Urea Nitrogen 26 mg/dL (7-17); Calcium 10.9 mg/dL (8.4-10.2); Carbon Dioxide 22 mmol/L (22-32); Chloride 109 mmol/L (98-107); Estimated Glomerular Filt Rate 44 mL/min (>60); Globulin 4.2 g/dL (1.7-4.1); Glucose 94 mg/dL (70-99); HEMOLYSIS < 15 (0-50); Potassium 3.7 mmol/L (3.4-5.1); Sodium 139 mmol/L (137-145); Total Protein 8.0 g/dL (6.3-8.2)
[2025-03-13 10:15] LABS: HEMOLYSIS < 15 (0-50); Iron 30 ug/dL (37-170)
[2025-03-13 10:19] LABS: Anisocytosis 1+; Hypochromasia 1+; Microcytosis 2+
[2025-03-13 10:26] LABS: Percent Iron Saturation 8 % (15-50); Total Iron Binding Capacity 396 ug/dL (265-497); Transferrin 339 mg/dL (206-381)
[2025-03-13 10:45] LABS: Ferritin 9 ng/mL (11-264)
[2025-03-13 11:05] LABS: Vitamin B12 467 pg/mL (239-931)
--- NOTE | 2025-03-13 11:20 | CM.DANOTE ---
Addendum entered by DIVINE Perez 03/13/25 11:27: Addendum: Per [facility], an APS referral was placed on pt's behalf last week due to concerns for self-neglect. KAROLINE Arango Original Note: ED COBOL PROGRAMMER DCP Assessment Note: Pt is a 79yo female, resident [facility], is admitted for hypercalcemia, UTI, multiple wounds on sacrum, legs and pannus. Pt lives in a house with her , Pola. Pt's Primary Care Provider is Dr. Mumtaz Groves and insurance is Medicare and [facility]. Reviewed chart and discussed with multidisciplinary team pt's medical status and initial discharge needs. Per [facility], pt is on his caseload due to a previous EMS dispatch which led to concerns for self-neglect, The living situation is an increasing hoarding situation, her is concerned. [facility] states pt was guarded and did not want to discuss any community resources with [facility], agreed to [facility] coordinating with spouse. ED COBOL PROGRAMMER met w/patient at bedside; introduced self and role. Patient was found in bed, alert and oriented, cooperative with assessment. Pt confirmed living situation and good support in , she states he is her primary caregiver. Pt states she has been having multiple falls due to weakness, utilizes a wheelchair and FWW at baseline. Pt expressed Rehab might be a good idea. Pt has a hx of [facility] in 2021 and would prefer to be referred to there if appropriate. Pt agreeable to working with therapies and following their recommendations. Plan: Acute Care admission, Awaiting PT/OT evaluations and recommendation for evolving discharge plans. CM team will follow closely for coordination of discharge plans. KAROLINE Arango Discharge Planning/Care Management CM Discharge Assessment Start: 03/13/25 06:40 Freq: Status: Active Protocol: Document 03/13/25 10:57 MW (Rec: 03/13/25 11:20 MW [id number]) Discharge Planning Assessment Assigned Discharge DIVINE Riggins Video System Repairer Provider Dr. Mumtaz Groves Insurance Medicare,[employer] DPOA/Assigned Pola Vinson, Spouse Designee Name Contact Information [phone] Advance Directives? No History Provided By Patient,Medical Record Has Patient been No admitted in last 30 days? Prior Living House Arrangements Household Members spouse Independent with ADL Yes 's Is patient alert and Yes oriented? Needs Assistance Bathing,Meal Prep,Toileting,Managing Medications,Home With Chores / Shopping Caregiver for No Another DME Already Rented / Hospital Bed,Wheelchair,FWW / Walker Owned Patient/Family Longterm Facility Preference Comment Weakness, some skin issues, frequent falls. Discharge Plan Longterm Facility Transportation Facility vs Family Arrangement Review Status In Process Please Provide Date 03/13/25 Initial DC Assessment Was Performed Next Review Type Continued Stay Review
--- NOTE | 2025-03-13 14:33 | PC.NURSE ---
Assess- Patient is alert and oriented x3, maybe forgetful. She has multiple skin issues and pressure injuries that have been charted under skin assessment and photos also taken and downloaded. Patient admitted for weakness and she had been having some falls at home. seems to be having some difficulty taking care of patient at home. She has become weaker over the weeks. She is being turned every 2 hours and is sleeping now.
[2025-03-13] MEDS: ACETAMINOPHEN 325 MG TABLET 650 MG PO ×2 (15:41→23:41)
[2025-03-13] MEDS: INSULIN GLARGINE 100 UNIT/ML 3ML PEN 20 UNIT SUBCUT (20:49)
[2025-03-14 05:26] LABS: Add Manual Diff / Slide Review NO; Hematocrit 25.2 % (36-46); Hemoglobin 7.6 g/dL (12.0-16.0); Lymphocytes Absolute Auto 1500 /uL (1100-4500); Mean Corpuscular HGB Conc 30.1 % (30-36); Mean Corpuscular Hemoglobin 21.3 PG (26-34); Mean Corpuscular Volume 70.9 fL (80-100); Platelet Count 461 X10^3/uL (150-400)
[2025-03-14] MEDS: LEVOTHYROXINE 100 MCG TABLET PO (05:43)
[2025-03-14 05:55] LABS: Blood Urea Nitrogen 28 mg/dL (7-17); Calcium 11.0 mg/dL (8.4-10.2); Carbon Dioxide 18 mmol/L (22-32); Chloride 108 mmol/L (98-107); Estimated Glomerular Filt Rate 40 mL/min (>60); Glucose 97 mg/dL (70-99); HEMOLYSIS < 15 (0-50); Potassium 4.2 mmol/L (3.4-5.1); Sodium 137 mmol/L (137-145)
[2025-03-14] MEDS: ACETAMINOPHEN 325 MG TABLET 650 MG PO ×2 (07:03→18:41)
--- NOTE | 2025-03-14 07:27 | P.PN_ITS ---
Subjective Subjective Date Patient Seen: 03/14/25 Time Patient Seen: 07:43 Interval history: Patient seen and evaluated last night. Patient said she has a little bit of a rough night last night. She says she sprained her ankles and so is having a hard time working for physical therapy. She is not ambulatory at home maybe with a little bit of a walker. helps her get in and out of bed and with transfers. Her major complaints this morning she wanted to know about her blood sugars and her calcium level. She said she ate her meal last night no concerns around that. Exam Vital Signs (past 8 hours): Oxygen Delivery Method Room Air Oxygen Flow Rate 0 Narrative Exam Narrative: Gen.: Alert oriented good historian HEENT: Pupils equal round and reactive or mucosa is moist neck is supple Cardio: S1-S2 regular rate and rhythm Respiratory: Normal respiratory effort no wheezes or rhonchi Abdomen: Obese and soft Extremities: Warm dry perfused Neurologic: No focal deficits Objective Labs 03/14/25 04:55 03/14/25 04:55 Labs: Laboratory Results - last 24 hr 03/13/25 03/13/25 03/13/25 09:45 16:57 20:45 WBC 8.8 RBC 3.57 L Hgb 7.6 L Hct 25.0 L MCV 69.9 L MCH 21.4 L MCHC 30.6 RDW 19.2 H Plt Count 493 H Neut % (Auto) 64.9 Lymph % (Auto) 14.6 L Sullivan % (Auto) 10.3 Eos % (Auto) 9.0 H Baso % (Auto) 1.2 Neut # (Auto) 5700 Lymph # (Auto) 1300 Sullivan # (Auto) 900 Eos # (Auto) 800 H Baso # (Auto) 100 RBC Morphology See below Hypochromasia 1+ H Anisocytosis 1+ H Microcytosis 2+ H Sodium 139 Potassium 3.7 Chloride 109 H Carbon Dioxide 22 BUN 26 H Creatinine 1.27 H Estimated GFR 44 L BUN/Creatinine Ratio 20.5 Glucose 94 POC Whole Bld Glucose 114 H 110 H Calcium 10.9 H Iron 30 L TIBC 396 % Saturation 8 L Transferrin 339 Ferritin 9 L Total Bilirubin 0.4 AST 30 ALT 23 Alkaline Phosphatase 93 Total Protein 8.0 Albumin 3.8 Globulin 4.2 H Albumin/Globulin Ratio 0.9 L Vitamin B12 467 09/30/25 04:55 WBC 10.7 RBC 3.56 L Hgb 7.6 L Hct 25.2 L MCV 70.9 L MCH 21.3 L MCHC 30.1 RDW 18.9 H Plt Count 461 H Neut % (Auto) 66.8 Lymph % (Auto) 14.2 L Sullivan % (Auto) 11.4 Eos % (Auto) 6.6 H Baso % (Auto) 1.0 Neut # (Auto) 7200 H Lymph # (Auto) 1500 Sullivan # (Auto) 1200 H Eos # (Auto) 700 H Baso # (Auto) 100 RBC Morphology Hypochromasia Anisocytosis Microcytosis Sodium 137 Potassium 4.2 Chloride 108 H Carbon Dioxide 18 L BUN 28 H Creatinine 1.37 H Estimated GFR 40 L BUN/Creatinine Ratio 20.4 Glucose 97 POC Whole Bld Glucose Calcium 11.0 H Iron TIBC % Saturation Transferrin Ferritin Total Bilirubin AST ALT Alkaline Phosphatase Total Protein Albumin Globulin Albumin/Globulin Ratio Vitamin B12 PFSH Medical History Varicose vein of leg Breast cancer Controlled type 2 diabetes mellitus without complication Asthma Anxiety Neurogenic bladder Hypothyroidism Hypertension Osteomyelitis Surgical History Anesthesia History of back surgery History of hip surgery Encounter for debridement of skin (~2012) Breast cancer Status post hysterectomy Status post appendectomy Status post cholecystectomy Family History Father Hypertension Mother Hypertension OA (osteoarthritis) Social History marital status: household members: spouse Smoking Status: Never smoker alcohol intake: never substance use type: does not use Assessment & Plan Assessment and plan (1) UTI (urinary tract infection): Qualifiers: Hematuria presence: with hematuria Urinary tract infection type: acute cystitis Qualified Code(s): N30.01 - Acute cystitis with hematuria Status: Acute (2) Hypercalcemia: Status: Acute Plan Urinary tract infection with systemic weakness. Patient will be continued on ceftriaxone. Urine culture is pending at this point so far it has grown out Gram-positive cocci. Monitor culture and sensitivity. Avoid Schilling catheters. Will switch to oral antibiotics in 24 hours once we have sensitivities back. Anemia iron deficient. Patient's labs show she is significantly deficient in iron. Hemoglobin is low today again. Will provide iron infusion today. She will be started on oral iron supplementation as well. Generalized weakness. Patient with generalized weakness and decline. History of morbid obesity. Patient has limited mobility in the home. Her weakness has been contributed by underlying urinary tract infection profound anemia and morbid obesity with a BMI of 51 Morbid obesity BMI 51. CKD stage 3 B EGFR is 40. Continue to monitor fluid electrolyte status. Sacral decubitus. Present on admission. Wound care per nursing team. Hypercalcemia calcium ionized and PTH ordered. Results pending Atrial fibrillation paroxysmal. Appears to be in normal sinus rhythm. Patient is on anticoagulation with apixaban. Rate control with metoprolol 75 mg daily. Hypertension. Patient is on amlodipine losartan and metoprolol. Diabetes. Patient is on metformin this will be held. Blood sugars look okay getting Lantus with insulin sliding scale coverage. Depression. Patient on antidepressant sees medications will be continued. Hypothyroidism patient on thyroid replacement her thyroid medication will be continued. Disposition and plan. Patient will not need intermediate at the time of discharge discussed with discharge planning today. Discussed with patient. Time-Based Coding :: [TOTAL MINUTES] spent with patient and on the chart (including review of chart, obtaining history, exam, reviewing outside data, placing orders, documenting exam and treatment plan, and counseling patient) on [DATE]. PROFEE Spray Gunner Document charge(s): Yes Charge Codes Subsequent inpatient/observation care: [id number]
[2025-03-14 08:00] VITALS: BP 136/64; PULSE 83; RESP 18; TEMP 36.6; O2SAT 96
[2025-03-14] MEDS: SODIUM FERRIC GLUCONAT/SUCROSE 125 MG in SODIUM CHLORIDE 0.9% 100 ML 110 MG IV (09:18)
[2025-03-14] MEDS: CITALOPRAM 10 MG TABLET 20 MG PO (09:18)
[2025-03-14] MEDS: METOPROLOL ER 25 MG TABLET 75 MG PO ×2 (09:18→21:09)
[2025-03-14] MEDS: APIXABAN 5 MG TABLET PO ×2 (09:18→21:09)
[2025-03-14] MEDS: LOSARTAN 50 MG TABLET PO (09:19)
--- NOTE | 2025-03-14 13:31 | OT.IPNOTE ---
Per nursing pt getting iron infusion due to low HH, and best to hold OT eval at this time.
--- NOTE | 2025-03-14 15:37 | CM.DPNOTE ---
DCP note per [facility] INPT order from 03/12 even though she was boarding in the ED. 3rd midnight would=dc tomorrow to [facility] if can accept. Harleen kindly agreed to send referral to [facility]. acceptance pending. PASRR needed. COTTON WEIGHER OPERATOR lvm with [facility] late afternoon to review referral response pending. P: if stable/[facility] can accept dc tomorrow. Will continue to follow closely for DCP coordination DIVINE López
--- NOTE | 2025-03-14 16:45 | PT-IP ANOTE ---
checked on pt and pt refused PT. stated that she told the doctor to hold off on PT due to her ankle sprain. pt refused to do PT today but agreed to see PT tomorrow. will f/u
[2025-03-14 20:05] VITALS: BP 131/63; PULSE 81; RESP 18; TEMP 36.7; O2SAT 95
[2025-03-14 21:09] VITALS: PULSE 82
[2025-03-14 21:40] VITALS: PULSE 85
[2025-03-15 05:09] LABS: Hemoglobin A1C% w Est Avg Glu 5.1 % (4.0-6.0)
[2025-03-15] MEDS: LEVOTHYROXINE 100 MCG TABLET PO (06:15)
[2025-03-15] MEDS: ACETAMINOPHEN 325 MG TABLET 650 MG PO ×2 (06:15→13:14)
[2025-03-15 08:00] VITALS: BP 102/61; PULSE 79; RESP 26; TEMP 36.9; O2SAT 92
[2025-03-15] MEDS: CITALOPRAM 10 MG TABLET 20 MG PO (09:03)
[2025-03-15] MEDS: APIXABAN 5 MG TABLET PO ×2 (09:03→20:46)
[2025-03-15] MEDS: METOPROLOL ER 25 MG TABLET 75 MG PO ×2 (09:03→20:46)
[2025-03-15] MEDS: LOSARTAN 50 MG TABLET PO (09:03)
--- NOTE | 2025-03-15 09:26 | P.DS_ITS ---
History of Present Illness History of Present Illness Chief complaint: Weakness Narrative: Patient is a 79-year-old female with a history of paroxysmal atrial fibrillation type 2 diabetes CKD stage IIIB hypertension hypothyroidism depression morbid obesity and major depression presents to the emergency department. Patient lives at home and her . She has a very fragile living circumstances due to her chronic medical conditions and her obesity she has a hard time with mobility. She relies on her to help move her around the house with a walker. Patient had a fall earlier this week and was on the ground for about 8 hours before the paramedics were called to lift her up. She has had increasing problems with weakness since then and then had another fall this weekend and her could not get her up and the ambulance brought her in. She has noticed some ongoing concerns with generalized weakness. She says sometimes she has some troubles with her memory. When she fell she landed on her hip and shoulder and she was complaining of some mild pain. She says that is not as big of an issue now. She does admit that she spends a lot of time in bed and is not able to move. She has a history of urinary tract infections. She has not had any recent problems with chest pain palpitations. In review of laboratory tests from her admission to the hospital patient had an EKG which showed sinus rhythm. Chest x-ray which was poorly visualized but no acute consolidations. Her vital signs show afebrile status her blood pressure looks good. Patient had a normal white blood cell count. She is anemic with a hemoglobin of 8.2. Her urinalysis shows 3+ blood 3+ leukocytes. Her kidney function shows an EGFR of 37. Her liver enzymes are normal her troponin is normal her total CK is low at 165. Discharge Providers Provider Date of admission: 03/12/25 19:57 Discharge Date: 03/15/25 Primary care physician: Mumtaz Groves MD Consults: 03/14/25 12:25 Consult to Occupational Therapy Evaluate & Treat Comment: Physician Instructions: Evaluate and treat Consult to Physical Therapy Evaluate & Treat Comment: Physician Instructions: Evaluate and Treat Discharge provider: Mumtaz Groves MD Summary Hospital Course Discharge Diagnosis: Urinary tract infection Anemia acute iron deficient Generalized weakness Morbid obesity BMI 51 CKD stage IIIB Sacral decubitus Hypercalcemia Paroxysmal atrial fibrillation Hypertension Diabetes Depression Hypothyroidism Hospital Course: Patient was admitted to the hospital please see admission note for complete details. Patient was admitted due to to falls and profound weakness. Inability to ambulate at home. Hospital admission shows anemia urinary tract infection with significant weakness chronic kidney disease. During her hospital stay she was given some IV fluids she was started on IV antibiotics. For anemia she was given iron infusion. During her hospital stay she had evaluation of some pain with x-rays which showed no acute fracture. She worked with physical therapy. She had treatment of her urinary tract infection management of her blood sugars and high blood pressure. She was encouraged to work with physical therapy. Discharge plan will be for her to go to longterm facility for rehabilitation ongoing treatment of her prolonged weakness and inability to ambulate. She will be discharged home with antibiotics. And continued on her home medication. Exam Vital Signs (past 8 hours): - 03/15/25 08:00 Temperature 98.4 F Pulse Rate 79 Respiratory Rate 26 H Blood Pressure 102/61 Pulse Oximetry 92 Oxygen Flow Rate 0 Oxygen Delivery Method Room Air Oxygen Flow Rate 0 Objective Labs 03/14/25 04:55 03/14/25 04:55 Labs: Laboratory Results - last 24 hr 03/14/25 03/14/25 03/15/25 12:03 20:46 04:35 POC Whole Bld Glucose 106 H 94 Hemoglobin A1c 5.1 03/15/25 08:03 POC Whole Bld Glucose 103 H Hemoglobin A1c PFSH Medical History Varicose vein of leg Breast cancer Controlled type 2 diabetes mellitus without complication Asthma Anxiety Neurogenic bladder Hypothyroidism Hypertension Osteomyelitis Surgical History Anesthesia History of back surgery History of hip surgery Encounter for debridement of skin (~2012) Breast cancer Status post hysterectomy Status post appendectomy Status post cholecystectomy Family History Father Hypertension Mother Hypertension OA (osteoarthritis) Social History marital status: household members: spouse Smoking Status: Never smoker alcohol intake: never substance use type: does not use Discharge Plan Discharge Plan Patient Disposition: SNF Discharge orders & Medications Prescriptions: New nystatin [Nystop] 100,000 unit/gram Powder 1 applic topical TID PRN (Reason: Rash) Qty: 10 0RF cephalexin 750 mg capsule 750 mg PO BID Qty: 8 0RF Continued meclizine 25 mg tablet 25 mg PO DAILY PRN (Reason: dizziness) metformin 500 mg tablet 500 mg PO DAILY Qty: 90 3RF citalopram 20 mg tablet 20 mg PO DAILY Qty: 90 3RF losartan 50 mg tablet 50 mg PO DAILY Qty: 90 3RF montelukast 10 mg tablet 10 mg PO DAILY Qty: 90 3RF Eliquis 5 mg tablet 5 mg PO BID Qty: 180 3RF levothyroxine 100 mcg tablet 100 mcg PO QAM Qty: 90 3RF amlodipine 10 mg tablet 10 mg PO DAILY Qty: 90 1RF metoprolol succinate 25 mg tablet extended release 24 hr 75 mg PO BID Qty: 540 3RF lorazepam 1 mg tablet 0.5 mg PO BEDTIME PRN (Reason: anxiety) Qty: 30 0RF Discontinued chlorpheniramine maleate 4 mg tablet 4 mg PO Q8H PRN (Reason: allergy symptoms) Rx Instructions: do not exceed 2 doses per 24 hrs fluticasone propionate [Flovent HFA] 220 mcg/actuation Hfa Aerosol Inhaler 2 puff INHALATION DAILY PRN (Reason: Shortness Of Breath) Follow up/Referrals: Mumtaz Groves MD [Primary Care Provider, Family Practice] Discharge Health Status Multidrug resistant organism: No MDRO Diet/Activity/Treatments Diet: Diet as Tolerated Activity: as tolerated Visit Report/Discharge Packet Stand Alone Forms: Patient Portal/API, Stroke Signs & Symptoms Discharge Data Primary Care Provider: Mumtaz Groves PROFEE Charge Codes Discharge inpatient/observation: [id number]
[2025-03-15 09:51] LABS: Add Manual Diff / Slide Review NO; Hematocrit 26.2 % (36-46); Hemoglobin 7.8 g/dL (12.0-16.0); Lymphocytes Absolute Auto 1200 /uL (1100-4500); Mean Corpuscular HGB Conc 29.9 % (30-36); Mean Corpuscular Hemoglobin 21.2 PG (26-34); Mean Corpuscular Volume 71.0 fL (80-100); Platelet Count 495 X10^3/uL (150-400)
[2025-03-15 09:58] LABS: Alanine Aminotransferase 20 IU/L (<35); Albumin 3.9 g/dL (3.5-5.0); Albumin Globulin Ratio 0.9 (1.0-2.8); Alkaline Phosphatase 99 U/L (38-126); Blood Urea Nitrogen 21 mg/dL (7-17); Calcium 11.0 mg/dL (8.4-10.2); Carbon Dioxide 23 mmol/L (22-32); Chloride 108 mmol/L (98-107); Estimated Glomerular Filt Rate 39 mL/min (>60); Globulin 4.4 g/dL (1.7-4.1); Glucose 97 mg/dL (70-99); HEMOLYSIS < 15 (0-50); Potassium 4.2 mmol/L (3.4-5.1); Sodium 138 mmol/L (137-145); Total Protein 8.3 g/dL (6.3-8.2)
--- NOTE | 2025-03-15 10:02 | PT.IIE ---
Current Diagnoses Hypercalcemia (03/12/25) Acute cystitis with hematuria (03/12/25) Weakness (03/12/25) Surgical History (Last Reviewed 03/12/25 @ 18:25 by Annia Silveira DO) Anesthesia Breast cancer Encounter for debridement of skin (~2012) History of back surgery History of hip surgery Status post appendectomy Status post cholecystectomy Status post hysterectomy Medical History (Last Reviewed 03/12/25 @ 18:25 by Annia Silveira DO) Anxiety Asthma Breast cancer Controlled type 2 diabetes mellitus without complication Hypertension Hypothyroidism Neurogenic bladder Osteomyelitis Varicose vein of leg Physical Therapy Inpatient Evaluation/Re-Eval M1 PT/OT-IP Prior Functional Status Start: 03/15/25 13:48 Freq: NEEDED Status: Active Protocol: Document 03/15/25 10:02 AB (Rec: 03/15/25 14:01 [id number]) Medical Review Prior Functional Status Medical History Yes Reviewed Communication able to make needs known Mobility and Gait pt stated that spouse assists her with bed mobility but she is able to step transfer bed<>w/c using FWW mod I and able to take a few steps using FWW from w/c to toilet mod I; stated that w/c does not fit in the toilet and she was able to walk from the door of the bathroom to the toilet Activities of Daily Pt states just sponges off and her prior Living and IADL's assisted with socks and shoes. Pt states wears maxi dresses at home. Social History Household Members spouse Living Arrangements House Number of Floors ( Two Floors Floors) Number of Stairs To pt stays on main level of the house Enter/Railing? Has no steps to enter Home Environment High Toilet,Tub/Shower Home Equipment Front Wheel Walker,Manual Wheelchair,Tub Transfer Bench ,Hand Held Shower Additional Social pt only takes sponge baths per pt History Comment M2 PT-IP Current Condition Start: 03/15/25 13:48 Freq: NEEDED Status: Active Protocol: Document 03/15/25 10:02 AB (Rec: 03/15/25 14:01 [id number]) Physical Therapy Current Condition Current Condition Evaluation Date 03/15/25 Treatment Diagnosis UTI; hypercalcemia; difficulty in walking Onset Date 03/12/25 M3 PT-IP Subjective Start: 03/15/25 13:48 Freq: NEEDED Status: Active Protocol: Document 03/15/25 10:02 AB (Rec: 03/15/25 14:01 AB [id number]) Subjective Physical Therapy Visit Type Type Initial Evaluation Visit Start Time 10:02 Visit Stop Time 10:43 Number of ELECTRIC WIRER Visits 0 M4 PT-IP Mobility and Gait Start: 03/15/25 13:48 Freq: NEEDED Status: Active Protocol: Document 03/15/25 10:02 AB (Rec: 03/15/25 14:01 [id number]) PT-Bed Mobility Assessment Supine to Sit Supine to Sit Maximum Assistance,2 Person Assistance,Head of Bed Elevated,Bedrails Sit to Supine Sit to Supine Total Assistance,2 Person Assistance,Head of Bed Elevated,Bedrails Scooting Scooting to Edge of Dependent Bed Scooting Up and Down Dependent in Bed PT-Transfer Assessment Sit to and From Stand Sit to and from Maximum Assistance,2 Person Assistance,Use of Upper Stand Extremities Equipment Transfer Assistive Gait Belt,Front Wheeled Walker Device Orthotic/Prosthetic No Devices or Brace: Comments Mobility Comments pt in bed and spouse in room. obtained PLOF and home setup. BP: 113/61 [place]:77 bpm O2 sat: 95%. pt completed supine to sit max a x 2 and max cues with HOB elevated and use of bed rail. pt able to sit on EOB CGA to min A and cues. needed max A x 2 for scooting to EOB. sit to stand from EOB max A x 2 and max cues. required max A x 2 for standing balance using fWW and tolerated ~ 8sec standing. attempted to transfer to chair but pt stated that she cannot move her legs. pt sat back on EOB. pt rested. sit to stand from EOB max A x 2 and max cues and instructed to take side steps towards HOB for positioning. pt completed smal side steps ~ 3-4 steps using FWW max a x 2 and max cues and needed to sit back on EOB. pt c/o lightheadedness. BP checked: 100/55 [place]: 86 and O2 sat: 98%. assisted pt back to bed and needed total A x 2 for sit to supine. required total A x 2 for positioning in bed . call light and table placed within reach. pt and spouse agreed on SNF rehab. PT-Balance Assessment Sitting Balance and Reactions Static Sitting Fair Balance Ability Dynamic Sitting Poor Balance Ability Standing Balance and Reactions Static Standing Poor Balance Ability Dynamic Standing Poor Balance Ability Device Used FWW M5 PT-IP Objective Assessments Start: 03/15/25 13:48 Freq: NEEDED Status: Active Protocol: Document 03/15/25 10:02 AB (Rec: 03/15/25 14:01 [id number]) Orientation Orientation/Cognition Level of Alertness Alert Orientation Name,Place,Situation Language Function Hard of Hearing Ability Safety Awareness Decreased Safety Awareness Memory Description Short Term Impaired,[place] Supervisor Impaired Strength Lower Extremity Strength Assessment Bilaterally Impaired Hip 2+/5 Knee 3-/5 Muscle Tone Muscle Tone WNL Yes M6 PT-IP Treatment Start: 03/15/25 13:48 Freq: NEEDED Status: Active Protocol: Document 03/15/25 10:02 AB (Rec: 03/15/25 14:01 [id number]) Physical Therapy Treatment Education Education Provided Safety M7 PT-IP Assessment and Plan Start: 03/15/25 13:48 Freq: NEEDED Status: Active Protocol: Document 03/15/25 10:02 AB (Rec: 03/15/25 14:01 [id number]) PT Summary Assessment and Plan Potential Rehabilitation Fair Potential Status of Condition Evolving at Evaluation Summary Impairments Pain,ROM,Strength,Balance,Coordination,Sensation,Tone, Cognition,Bed Mobility,Transfers,Gait,Activity Tolerance Assessment Summary pt is a 79 y/o F who is admitted for UTI, hypercalcemia . pt requiring max a x 2 to total A x 2 for mobilities and will need SNF rehab to improve overall strength and mobility. Goals Bed Mobility Goal Minimal Assistance Transfer Goal Minimal Assistance,Front Wheeled Walker Gait Goal Minimal Assistance,Front Wheel Walker Gait Distance 25 Days to Meet Goals 10 Frequency of Treatment Frequency Of Once a Day Treatment Treatment Plan Physical Therapy Bed Mobility Training,Transfer Training,Gait Training, Treatment Plan Therapeutic Exercise,Balance Retraining,Discharge Planning,Hot or Cold Pack,Neuromuscular Re-ed, Coordination Retraining,Manual Therapy Precautions Other Precautions falls Recommendations To Nursing Amount of Assist Mechanical Lift Needed Discharge Recommendations PT Discharge SNF Rehab Recommendations Transportation Needs Wheelchair/Cabulance,Stretcher/Ambulance at Discharge - PT assist 2
--- NOTE | 2025-03-15 10:43 | OT.IP.EVAL ---
Current Diagnoses Hypercalcemia (03/12/25) Acute cystitis with hematuria (03/12/25) Weakness (03/12/25) Past Medical History (Last Reviewed 03/12/25 @ 18:25 by Annia Silveira DO) Anxiety Asthma Breast cancer Controlled type 2 diabetes mellitus without complication Hypertension Hypothyroidism Neurogenic bladder Osteomyelitis Varicose vein of leg Surgical History (Last Reviewed 03/12/25 @ 18:25 by Annia Silveira DO) Anesthesia Breast cancer Encounter for debridement of skin (~2012) History of back surgery History of hip surgery Status post appendectomy Status post cholecystectomy Status post hysterectomy Occupational Therapy Inpatient Evaluation/Re-Eval M1 PT/OT-IP Prior Functional Status Start: 03/15/25 11:03 Freq: NEEDED Status: Active Protocol: Document 03/15/25 11:04 [facility] (Rec: 03/15/25 11:17 [facility] Desktop) Medical Review Prior Functional Status Communication I Mobility and Gait Pt prior needing assist from her with FWW. Otherwise mainly just able to transfer to the and get to the bathroom to take a few steps with the FWW. Activities of Daily Pt states just sponges off and her prior Living and IADL's assisted with socks and shoes. Pt states wears maxi dresses at home. Social History Household Members spouse Living Arrangements House Number of Floors ( Two Floors Floors) Number of Stairs To No steps to enter Enter/Railing? Home Environment High Toilet,Tub/Shower Home Equipment Front Wheel Walker,Manual Wheelchair,Tub Transfer Bench ,Hand Held Shower M2 OT-IP Current Condition Start: 03/15/25 11:03 Freq: Status: Active Protocol: Document 03/15/25 11:04 [facility] (Rec: 03/15/25 11:17 [facility] Desktop) Occupational Therapy Current Condition Current Condition Evaluation Date 03/15/25 Treatment Diagnosis UTI, frequent falls M3 OT- IP Subjective and Pain Start: 03/15/25 11:03 Freq: Status: Active Protocol: Document 03/15/25 11:04 [facility] (Rec: 03/15/25 11:17 [facility] Desktop) OT- Subjective Occupational Therapy Visit Type Type Initial Evaluation Visit Start Time 10:10 Visit Stop Time 10:43 Occupational Therapy Visit Comments Patient Comments Pt agreed to try to get up. Patient/Caregiver To get better. Goals OT Pain Assessment Pain When Pain Assessed At Rest Pain Present Pain Present Denied Pain M4 OT- IP ADL's Start: 03/15/25 11:03 Freq: Status: Active Protocol: Document 03/15/25 11:04 [facility] (Rec: 03/15/25 11:17 [facility] Desktop) OT [id number] Comments OT Self-Feeding NOt at meal time. Comments OT ADL-Grooming Comments OT Grooming Comments Not performed. OT ADL-Oral Care Comments Oral Care Comments Not performed. OT ADL-Dressing General Eval Lower Body Dressing Total Assistance Ability Areas Needing Socks Assistance OT ADL-Toileting General Evaluation Toileting Ability Total Assistance Areas Needing Empty Catheter or Colostomy Assistance OT ADL-Bathing Comments OT Bathing Comments Sponge bath more appropriate at this time. M5 OT- IP IADL's Start: 03/15/25 11:03 Freq: Status: Active Protocol: Document 03/15/25 11:04 [facility] (Rec: 03/15/25 11:17 [facility] Desktop) OT-Instrumental Activities of Daily Living Home Safety Awareness Awareness of Need Good Awareness for Assistance at Home Medication Management Medication Pt states she and her do her meds together. Management Comments Money Management Money Management Pt states still does the bills. Comments Meal Preparation Meal Preparation Caregiver Provides Assist Classifier Operator Classifier Operator Caregiver Provides Assist M6 OT- IP Functional Cognition Start: 03/15/25 11:03 Freq: Status: Active Protocol: Document 03/15/25 11:04 [facility] (Rec: 03/15/25 11:17 [facility] Desktop) Cognitive Factors Limiting Selfcare Function Cognitive Ability Level of Alertness Alert Patient Orientation Name,Place,Situation Attention Span Capable of Focused Attention,Capable of Sustained Ability Attention Ability to Follow Able to Follow One Step Commands Commands Cognitive Comments Cognitive Assessment Pt able to follow commands for ADL and mobility needs. Comments Pt would benefit from SLUMS, prior pt states has had more difficulty to do her meds and bills lately. OT- Vision and Hearing OT- Hearing Assessment OT- Hearing WFL Assessment OT- Vision Assessment Visual Acuity Glasses For Reading Visual Attentiveness WFL Occular Pursuits WFL M7 OT- IP Mobility and Balance Start: 03/15/25 11:03 Freq: Status: Active Protocol: Document 03/15/25 11:04 [facility] (Rec: 03/15/25 11:17 [facility] Desktop) OT- Bed Mobility Assessment Rolling Level of Assistance Maximum Assistance,1 Person Assistance,2 Person Assistance,Bedrails Supine to Sit Supine to Sit Assist Maximum Assistance,2 Person Assistance,Bedrails Sit to Supine Sit to Supine Assist Total Assistance,2 Person Assistance,Bedrails Scooting Scooting to Edge of Maximum Assistance,2 Person Assistance Bed OT-Transfer Assessment Sit to and From Stand Sit to and from Maximum Assistance,2 Person Assistance Stand Comments Mobility Comments MAX AX 2 to get from supine to sitting with HOB up. MAX AX 2 to help[ scoot her hips forwards. MAX AX 2 to stand with FWW and able to take small steps to the head of bed and then total Ax2 to get back to supine. At this time Drew lift for transfers. OT- Balance Assessment Sitting Balance and Reactions Static Sitting Poor Balance Ability Dynamic Sitting Poor Balance Ability Standing Balance and Reactions Static Standing Poor Balance Ability Dynamic Standing Poor Balance Ability Comments Other Balance Tests/ Pt has difficulty to sit to midline and tends to lean Deviations/Treatment into posterior tilt and needing cues to lean forwards : and activate her core. M8 OT- IP Objective Assessments Start: 03/15/25 11:03 Freq: Status: Active Protocol: Document 03/15/25 11:04 [facility] (Rec: 03/15/25 11:17 [facility] Desktop) OT Gross Range of Motion Upper Extremity Range of Motion ROM Impairments Grossly WFL for AROM OT Strength Comments Strength Comments BUE 4/5 to 4+/5 from proximal to distal. M9 OT- IP Assessment and Plan Start: 03/15/25 11:03 Freq: Status: Active Protocol: Document 03/15/25 11:04 [facility] (Rec: 03/15/25 11:17 [facility] Desktop) OT Summary Assessment and Plan Potential Rehabilitation Fair Potential Analytic Complexity Moderate at Evaluation Summary OT Impairments Pain,Strength,Balance,Functional Cognition,Functional Mobility,Self-Feeding,Grooming,Dressing,Toileting, Bathing,Toilet Transfers,Shower Transfers,Activity Tolerance Progress Towards Slow Progress due to Pain,Slow Progress due to Medical Goals Issues,Slow Progress due to Activity Tolerance Assessment Summary Pt MOD complexity and main barriers are decreased strength, activity tolerance and needing MAXA x2 to total Ax2 for bed mobility needs. Pt able to stand with MAX AX 2 with FWW and able to take small side steps towards the head of the bed today. Pt will greatly benefit from skilled rehab at this time. Goals Self-Feeding Goal Independent Grooming Goal Independent Dressing Goal Minimal Assistance Toileting Goal Minimal Assistance Bathing Goal Moderate Assistance Toilet Transfer Goal Minimal Assistance Shower Transfer Goal Moderate Assistance Days to Meet Goals 25 Frequency of Treatment Other frequency 5x/week Treatment Plan OT Treatment Plan ADL Training,Functional Cognition Training,Functional Mobility,Patient/Family Education,Discharge Planning Other Treatment SLUMS Recommendations and Next Treatment Focus Discharge Recommendations OT Discharge SNF Rehab Recommendations Transportation Needs Wheelchair/Cabulance at Discharge
[2025-03-15] MEDS: MAGNESIUM HYDROXIDE 30 ML UDC PO (12:05)
--- NOTE | 2025-03-15 12:55 | CM.DPNOTE ---
DCP Cont Patient is slated to discharge to [facility] ; they can admit patient tomorrow 03/16. Hospital exempt PASRR completed and signed by Dr Groves. Marian at requests PT/OT eval notes. Therapy orders are in- this PIN TICKET MACHINE OPERATOR will plan to send eval notes when available. Plan: Discharge to [facility] anticipated tomorrow 03/16, Dr Groves updated. Patient and sp agreeable to plan- spouse cannot manage patient's care needs at home currently. JW
[2025-03-15] MEDS: NYSTATIN POWDER 15GM 1 APPLIC TOP (17:31)
[2025-03-15] MEDS: PANTOPRAZOLE DR 20 MG TABLET PO (17:31)
[2025-03-15] MEDS: DOCUSATE 100 MG CAPSULE PO (20:43)
[2025-03-15 20:46] VITALS: BP 134/66; PULSE 74
[2025-03-15] MEDS: LORATADINE 10 MG TABLET PO (20:46)
[2025-03-16] MEDS: ACETAMINOPHEN 325 MG TABLET 650 MG PO ×2 (04:41→14:32)
[2025-03-16] MEDS: LEVOTHYROXINE 100 MCG TABLET PO (05:46)
[2025-03-16 07:09] LABS: Calcium 10.7 mg/dL (8.7-10.3); Parathyroid Hormone, Intact 165 pg/mL (15-65)
--- NOTE | 2025-03-16 07:59 | P.PN_ITS ---
Subjective Subjective Date Patient Seen: 03/16/25 Time Patient Seen: 07:59 Interval history: Patient seen this morning. Discharge was delayed yesterday apparently long term was not quite ready. Patient did well overnight. Restarted some of her antihistamine medication. Started a bowel regiment. Patient stable. Reviewed microbiology urine grew out staph aureus. Patient is started on some nystatin because of yeast on her skin. Continues to have skin breakdown in her perineal area and decubiti. Exam Vital Signs (past 8 hours): Oxygen Delivery Method Room Air Oxygen Flow Rate 0 Narrative Exam Narrative: Gen.: Alert good historian HEENT: Pupils equal round and reactive or mucosa is moist Cardio: S1-S2 regular rate and rhythm Respiratory: Lungs show normal respiratory effort Abdomen: Soft nontender no rebound or guarding no liver spleen enlargement no appreciable hernias Extremities: Generalized weakness. Moving all extremities Objective Labs 03/15/25 09:45 03/15/25 09:45 Labs: Laboratory Results - last 24 hr 03/14/25 03/15/25 03/15/25 04:55 08:03 09:45 WBC 7.6 RBC 3.69 L Hgb 7.8 L Hct 26.2 L MCV 71.0 L MCH 21.2 L MCHC 29.9 L RDW 18.7 H Plt Count 495 H Neut % (Auto) 62.6 Lymph % (Auto) 16.4 L Custer % (Auto) 9.6 Eos % (Auto) 9.4 H Baso % (Auto) 2.0 Neut # (Auto) 4700 Lymph # (Auto) 1200 Custer # (Auto) 700 Eos # (Auto) 700 H Baso # (Auto) 200 H Sodium 138 Potassium 4.2 Chloride 108 H Carbon Dioxide 23 BUN 21 H Creatinine 1.38 H Estimated GFR 39 L BUN/Creatinine Ratio 15.2 Glucose 97 POC Whole Bld Glucose 103 H Calcium 11.0 H Total Bilirubin 0.2 AST 27 ALT 20 Alkaline Phosphatase 99 Total Protein 8.3 H Albumin 3.9 Globulin 4.4 H Albumin/Globulin Ratio 0.9 L PTH Intact 165 H Calcium (PTH Intact) 10.7 H PTH Intact Intraop Comment 03/15/25 03/15/25 03/15/25 11:34 16:09 21:22 WBC RBC Hgb Hct MCV MCH MCHC RDW Plt Count Neut % (Auto) Lymph % (Auto) Custer % (Auto) Eos % (Auto) Baso % (Auto) Neut # (Auto) Lymph # (Auto) Custer # (Auto) Eos # (Auto) Baso # (Auto) Sodium Potassium Chloride Carbon Dioxide BUN Creatinine Estimated GFR BUN/Creatinine Ratio Glucose POC Whole Bld Glucose 104 H 100 H 102 H Calcium Total Bilirubin AST ALT Alkaline Phosphatase Total Protein Albumin Globulin Albumin/Globulin Ratio PTH Intact Calcium (PTH Intact) PTH Intact Intraop 03/16/25 07:41 WBC RBC Hgb Hct MCV MCH MCHC RDW Plt Count Neut % (Auto) Lymph % (Auto) Custer % (Auto) Eos % (Auto) Baso % (Auto) Neut # (Auto) Lymph # (Auto) Custer # (Auto) Eos # (Auto) Baso # (Auto) Sodium Potassium Chloride Carbon Dioxide BUN Creatinine Estimated GFR BUN/Creatinine Ratio Glucose POC Whole Bld Glucose 93 Calcium Total Bilirubin AST ALT Alkaline Phosphatase Total Protein Albumin Globulin Albumin/Globulin Ratio PTH Intact Calcium (PTH Intact) PTH Intact Intraop PFSH Medical History Varicose vein of leg Breast cancer Controlled type 2 diabetes mellitus without complication Asthma Anxiety Neurogenic bladder Hypothyroidism Hypertension Osteomyelitis Surgical History Anesthesia History of back surgery History of hip surgery Encounter for debridement of skin (~2012) Breast cancer Status post hysterectomy Status post appendectomy Status post cholecystectomy Family History Father Hypertension Mother Hypertension OA (osteoarthritis) Social History marital status: household members: spouse Smoking Status: Never smoker alcohol intake: never substance use type: does not use Assessment & Plan Assessment and plan (1) UTI (urinary tract infection): Qualifiers: Hematuria presence: with hematuria Urinary tract infection type: acute cystitis Qualified Code(s): N30.01 - Acute cystitis with hematuria Status: Acute (2) Weakness: Status: Acute (3) Morbid obesity: Status: Chronic (4) Controlled type 2 diabetes mellitus without complication: Status: Acute (5) CKD (chronic kidney disease) stage 3, GFR 30-59 ml/min: Qualifiers: Chronic kidney disease stage 3 subtype: stage 3b (GFR 30-44) Qualified Code(s): N18.32 - Chronic kidney disease, stage 3b Status: Acute (6) Paroxysmal atrial fibrillation: Status: Acute (7) Acute anemia: Status: Acute Plan Urinary tract infection with systemic weakness. Sensitive Staph aureus. Patient will be switched to Keflex his outpatient orally. Anemia iron deficient. Iron deficiency anemia given iron infusion will need oral iron as an outpatient MCV is low ferritin is low. Generalized weakness. Patient with generalized weakness and decline. History of morbid obesity. Patient has limited mobility in the home. Her weakness has been contributed by underlying urinary tract infection profound anemia and morbid obesity with a BMI of 51 Morbid obesity BMI 51. CKD stage 3 B EGFR is 40. Kidney function stable today electrolytes are normal Sacral decubitus. Present on admission. Wound care per nursing team. Hypercalcemia calcium ionized and PTH ordered. Results pending Atrial fibrillation paroxysmal. On anticoagulation sinus rhythm heart rates well controlled on beta-tarah Hypertension. Patient is on amlodipine losartan and metoprolol. Diabetes type 2 Blood sugars hemoglobin A1c well controlled. Will be discharged home on metformin Depression. Patient on antidepressant sees medications will be continued. Hypothyroidism patient on thyroid replacement her thyroid medication will be continued. Disposition and plan. Discharge to residential facility Time-Based Coding :: [TOTAL MINUTES] spent with patient and on the chart (including review of chart, obtaining history, exam, reviewing outside data, placing orders, documenting exam and treatment plan, and counseling patient) on [DATE]. [employer] Document charge(s): Yes Charge Codes Subsequent inpatient/observation care: [id number]
[2025-03-16 08:00] VITALS: BP 133/64; PULSE 75; RESP 16; TEMP 36.2; O2SAT 97
[2025-03-16] MEDS: CITALOPRAM 10 MG TABLET 20 MG PO (09:31)
[2025-03-16] MEDS: LOSARTAN 50 MG TABLET PO (09:32)
[2025-03-16] MEDS: APIXABAN 5 MG TABLET PO (09:32)
[2025-03-16] MEDS: METOPROLOL ER 25 MG TABLET 75 MG PO (09:32)
[2025-03-16] MEDS: DOCUSATE 100 MG CAPSULE PO (09:33)
--- NOTE | 2025-03-16 10:18 | CM.DPNOTE ---
DC Note PT and OT notes emailed to Marian at this morning; patient has been accepted for admission today- transport has been arranged for pickling grader 1430. Reviewed plan with patient and spouse in the room and both remain agreeable. Emailed Marian the following: SNF order/Discharge report, signed med list, DC summary, hard script for ativan and signed Hospital exempt PASRR . Bedside RN updated and will call report. Plan: Discharge to today via van, pickling grader at 2:30p Hospital exempt PASRR sent to Bhavani Bentley [phone] SREEKANTH
--- NOTE | 2025-03-16 11:10 | OT.IP.TRT ---
Current Diagnoses Anemia, unspecified (03/12/25) Type 2 diabetes mellitus without complications (03/12/25) Morbid (severe) obesity due to excess calories (03/12/25) Hypercalcemia (03/12/25) Paroxysmal atrial fibrillation (03/12/25) Chronic kidney disease, stage 3b (03/12/25) Acute cystitis with hematuria (03/12/25) Weakness (03/12/25) Occupational Therapy Treatment Note M2 OT-IP Current Condition Start: 03/15/25 11:03 Freq: Status: Active Protocol: Document 03/15/25 11:04 [facility] (Rec: 03/15/25 11:17 [facility] Desktop) Occupational Therapy Current Condition Current Condition Evaluation Date 03/15/25 Treatment Diagnosis UTI, frequent falls M3 OT- IP Subjective and Pain Start: 03/15/25 11:03 Freq: Status: Active Protocol: Document 03/16/25 11:11 [facility] (Rec: 03/16/25 11:23 [facility] [id number]) OT- Subjective Occupational Therapy Visit Type Type Treatment Note Visit Start Time 10:30 Visit Stop Time 11:10 Occupational Therapy Visit Comments Patient Comments Pt agreed to try to use the BSC. Patient/Caregiver To get better. Goals M4 OT- IP ADL's Start: 03/15/25 11:03 Freq: Status: Active Protocol: Document 03/16/25 11:11 [facility] (Rec: 03/16/25 11:23 [facility] [id number]) OT [id number] Comments OT Self-Feeding NOt at meal time. Comments OT ADL-Grooming Comments OT Grooming Comments Not performed. OT ADL-Oral Care Comments Oral Care Comments Not performed. OT ADL-Dressing General Eval Lower Body Dressing Total Assistance Ability Areas Needing Underpants/Brief,Socks Assistance OT ADL-Toileting General Evaluation Toileting Ability Total Assistance Areas Needing Manage Clothing,Perform Perineal Hygiene Assistance Comments OT Toileting Able to stand with pt with MODA x 1 with FWW while Comments nursing aid assisting with hygiene and brief needs. OT ADL-Bathing Comments OT Bathing Comments Sponge bath more appropriate at this time. M5 OT- IP IADL's Start: 03/15/25 11:03 Freq: Status: Active Protocol: Document 03/15/25 11:04 [facility] (Rec: 03/15/25 11:17 [facility] Desktop) OT-Instrumental Activities of Daily Living Home Safety Awareness Awareness of Need Good Awareness for Assistance at Home Medication Management Medication Pt states she and her do her meds together. Management Comments Money Management Money Management Pt states still does the bills. Comments Meal Preparation Meal Preparation Caregiver Provides Assist Clinical Resource Director Clinical Resource Director Caregiver Provides Assist M6 OT- IP Functional Cognition Start: 03/15/25 11:03 Freq: Status: Active Protocol: Document 03/16/25 11:11 [facility] (Rec: 03/16/25 11:23 [facility] [id number]) Cognitive Factors Limiting Selfcare Function Cognitive Comments Cognitive Assessment Pt very talkative and needing vc for safety awareness Comments and for hand placement to push up from the bed and armrest of the bsc . M7 OT- IP Mobility and Balance Start: 03/15/25 11:03 Freq: Status: Active Protocol: Document 03/16/25 11:11 [facility] (Rec: 03/16/25 11:23 [facility] [id number]) OT- Bed Mobility Assessment Rolling Level of Assistance Minimal Assistance,2 Person Assistance Sit to Supine Sit to Supine Assist Minimal Assistance,2 Person Assistance OT-Transfer Assessment Sit to and From Stand Sit to and from Minimal Assistance,2 Person Assistance Stand Comments Mobility Comments Pt able to roll better with GALEN x2 with bed rails to assist to scott the brief. GALEN with bed tilted to get upright to the edge of the bed. GALEN x2 to stand and transfer to the BSC. Pt getting tired and needing MODA X 1 to stand and able to swap out the BSC to recliner. BP sitting 94/59 and 106/69 and when in the BSC 124/53. OT- Balance Assessment Sitting Balance and Reactions Static Sitting Fair Balance Ability Dynamic Sitting Fair Balance Ability Standing Balance and Reactions Static Standing Poor Balance Ability Dynamic Standing Poor Balance Ability Comments Other Balance Tests/ Pt doing better to sit to midline today. Pt needing Deviations/Treatment increased time to get her feet situated to stand up : initially. M8 OT- IP Objective Assessments Start: 03/15/25 11:03 Freq: Status: Active Protocol: Document 03/15/25 11:04 [facility] (Rec: 03/15/25 11:17 [facility] Desktop) OT Gross Range of Motion Upper Extremity Range of Motion ROM Impairments Grossly WFL for AROM OT Strength Comments Strength Comments BUE 4/5 to 4+/5 from proximal to distal. M9 OT- IP Assessment and Plan Start: 03/15/25 11:03 Freq: Status: Active Protocol: Document 03/16/25 11:11 [facility] (Rec: 03/16/25 11:23 [facility] [id number]) OT Summary Assessment and Plan Potential Rehabilitation Good Potential Analytic Complexity Moderate at Evaluation Summary OT Impairments Pain,Strength,Balance,Functional Cognition,Functional Mobility,Self-Feeding,Grooming,Dressing,Toileting, Bathing,Toilet Transfers,Shower Transfers,Activity Tolerance Progress Towards Progressing Toward Goals Goals Assessment Summary Pt moving much better today and able to transfer with GALEN x2 with FWW. As pt tires needing more assist to stand with MODA X 1 not able to transfer and therefore able to swap BSC to recliner. Pt dependent for all hygiene and toileting needs at this time. Pt to go to skilled rehab. Goals Self-Feeding Goal Independent Grooming Goal Independent Dressing Goal Minimal Assistance Toileting Goal Minimal Assistance Bathing Goal Moderate Assistance Toilet Transfer Goal Contact Guard Assistance Shower Transfer Goal Minimal Assistance Days to Meet Goals 20 Frequency of Treatment Other frequency 5x/week Treatment Plan OT Treatment Plan ADL Training,Functional Cognition Training,Functional Mobility,Patient/Family Education,Discharge Planning Discharge Recommendations OT Discharge SNF Rehab Recommendations Transportation Needs Wheelchair/Cabulance at Discharge
--- NOTE | 2025-03-16 11:11 | PT.IPTN ---
Current Diagnoses Anemia, unspecified (03/12/25) Type 2 diabetes mellitus without complications (03/12/25) Morbid (severe) obesity due to excess calories (03/12/25) Hypercalcemia (03/12/25) Paroxysmal atrial fibrillation (03/12/25) Chronic kidney disease, stage 3b (03/12/25) Acute cystitis with hematuria (03/12/25) Weakness (03/12/25) Physical Therapy Treatment Note M2 PT-IP Current Condition Start: 03/15/25 13:48 Freq: NEEDED Status: Active Protocol: Document 03/16/25 10:30 DCW (Rec: 03/16/25 11:06 DCW [id number]) Physical Therapy Current Condition Current Condition Evaluation Date 03/15/25 Treatment Diagnosis UTI; hypercalcemia; difficulty in walking Onset Date 03/12/25 M3 PT-IP Subjective Start: 03/15/25 13:48 Freq: NEEDED Status: Active Protocol: Document 03/16/25 10:30 DCW (Rec: 03/16/25 11:06 DCW [id number]) Subjective Physical Therapy Visit Type Type Treatment Note Visit Start Time 10:30 Visit Stop Time 10:55 Number of [employer] Visits 0 Physical Therapy Visit Comments Patient Comments Pt upright in bed, agreeable to try to get up before d/ c to SNF today. in room. M4 PT-IP Mobility and Gait Start: 03/15/25 13:48 Freq: NEEDED Status: Active Protocol: Document 03/16/25 10:30 DCW (Rec: 03/16/25 11:06 DCW [id number]) PT-Bed Mobility Assessment Rolling Type of Rolling Roll to Right,Roll to Left Level of Assist Moderate Assistance,2 Person Assistance Supine to Sit Supine to Sit Minimal Assistance,2 Person Assistance,Head of Bed Elevated,Bedrails PT-Transfer Assessment Sit to and From Stand Sit to and from Minimal Assistance,2 Person Assistance Stand Equipment Transfer Assistive Gait Belt,Front Wheeled Walker Device Comments Mobility Comments Performed rolling in bed each direction to place brief on patient prior to getting up. Pt then able to get to EOB Min Ax2 with elevated head of bed and table tilted to side. Upon sitting EOB, pt noted some lightheadedness, O2 sat 84, quickly jumped up to 99% with PLB. BP 94/59, pt seated EOB to rest, BP improved to 106/69 after brief rest. Pt able to perform sit-> stand Min Ax2, with step-pivot to BSC, required verbal cueing for pacing and positioning. BP improved to 124/ 53 upon seated on BSC. M5 PT-IP Objective Assessments Start: 03/15/25 13:48 Freq: NEEDED Status: Active Protocol: Document 03/15/25 10:02 AB (Rec: 03/15/25 14:01 AB [id number]) Orientation Orientation/Cognition Level of Alertness Alert Orientation Name,Place,Situation Language Function Hard of Hearing Ability Safety Awareness Decreased Safety Awareness Memory Description Short Term Impaired,Residential Impaired Strength Lower Extremity Strength Assessment Bilaterally Impaired Hip 2+/5 Knee 3-/5 Muscle Tone Muscle Tone WNL Yes M6 PT-IP Treatment Start: 03/15/25 13:48 Freq: NEEDED Status: Active Protocol: Document 03/16/25 10:30 DCW (Rec: 03/16/25 11:06 DCW [id number]) Physical Therapy Treatment Education Education Provided Safety M7 PT-IP Assessment and Plan Start: 03/15/25 13:48 Freq: NEEDED Status: Active Protocol: Document 03/16/25 10:30 DCW (Rec: 03/16/25 11:06 DCW [id number]) PT Summary Assessment and Plan Summary Impairments Pain,ROM,Strength,Balance,Coordination,Sensation,Tone, Cognition,Bed Mobility,Transfers,Gait,Activity Tolerance Assessment Summary Pt doing much better today, able to perform bed mobility and step-pivot transfer from EOB to BSC largely Min Ax2. Pt required rest after getting EOB secondary to light-headedness and decrease in BP, but recovered fairly quickly. Pt left in room on BSC with OT. Goals Bed Mobility Goal Minimal Assistance Transfer Goal Minimal Assistance,Front Wheeled Walker Gait Goal Minimal Assistance,Front Wheel Walker Gait Distance 25 Days to Meet Goals 10 Frequency of Treatment Frequency Of Once a Day Treatment Treatment Plan Physical Therapy Bed Mobility Training,Transfer Training,Gait Training, Treatment Plan Therapeutic Exercise,Balance Retraining,Discharge Planning,Hot or Cold Pack,Neuromuscular Re-ed, Coordination Retraining,Manual Therapy Precautions Other Precautions falls Recommendations To Nursing Amount of Assist 2 Person Assist Needed Discharge Recommendations PT Discharge SNF Rehab Recommendations Transportation Needs Wheelchair/Cabulance at Discharge - PT assist 2
[2025-03-16] MEDS: INSULIN LISPRO 100 UNIT/ML 3ML VIAL SUBCUT (12:27)
--- NOTE | 2025-03-16 13:05 | PC.NURSE ---
PT being discharged to [facility]. Report given to RN at facility, all questions answered. IV removed. at bedside. All belongings accounted for and discharge information reviewed and collect for next facility.
== END 2025-03-16 14:42 | DRG 690 ==
LOC: ED 19:25 → AC 19:57
PROVIDERS: Pharmacist Pharmacist Clinician (PhC)/ Clinical Pharmacy Specialist; Admitting Provider Family Medicine; Emergency Provider Emergency Medicine; PCP Family Medicine; Referring Provider Emergency Medicine; Visit Provider Family Medicine
DX: N30.01 Acute cystitis with hematuria (principal); Z68.43 Body mass index [BMI] 50.0-59.9, adult; L89.159 Pressure ulcer of sacral region, unspecified stage; E66.01 Morbid (severe) obesity due to excess calories; R53.1 Weakness; R29.6 Repeated falls; I48.0 Paroxysmal atrial fibrillation; F32.A Depression, unspecified; E03.9 Hypothyroidism, unspecified; E83.52 Hypercalcemia; D50.9 Iron deficiency anemia, unspecified; I12.9 Hypertensive chronic kidney disease with stage 1 through stage 4 chronic kidney disease, or unspecified chronic kidney disease; N18.32 Chronic kidney disease, stage 3b; B95.61 Methicillin susceptible Staphylococcus aureus infection as the cause of diseases classified elsewhere; E11.22 Type 2 diabetes mellitus with diabetic chronic kidney disease; Z79.890 Hormone replacement therapy; Z74.01 Bed confinement status; Z79.01 Long term (current) use of anticoagulants; Z79.84 Long term (current) use of oral hypoglycemic drugs
CPT/HCPCS: 36415; 71045; 73502; 80048; 80053; 81001; 82310; 82550; 82607; 82728; 82962; 83036; 83540; 83550; 83690; 83735; 83880; 83970; 84484; 85025; 85610; 85730; 87077; 87086; 87186; 93005; 96365; 96366; 97163; 97166; 97530; 97535; 99223; 99232; 99233; 99238; 99284; J0687; J0690; J0696; J1815; J2916; J7050